=== PATIENT | male | born 1940 | race Caucasian/White ===

== ENCOUNTER 2017-04-24 12:26 | Inpatient (IN) | payer MEDICARE ==
[2017-04-24] MEDS ORDERED: PHARMACY DOSING REQUIRED: VANCOMYCIN IV ONE (14:27)
[2017-04-24] MEDS ORDERED: VANCOCIN 1 GM VIAL*** 1.5 GM in Sodium Chloride 0.9% 500 ML 500 ML IV ONE (14:45)
[2017-04-24] MEDS: Sodium Chloride 0.9% 1000 ML 1,000 ML IV SCH (15:10)
[2017-04-24 15:36] LABS: Mean Cell Volume 71.9 fl (78-100); Mean Corpuscular Hemoglobin 20.9 pg (26-32); Mean Platelet Volume 11.2 fl (6-9.5); Platelet Count 264 K/mm3 (150-450); Red Blood Count 3.77 M/mm3 (4.1-5.6); Red Cell Distribution Width 20.6 % (11.5-14.0); White Blood Count 8.3 K/mm3 (4.0-10.5)
[2017-04-24 15:37] LABS: ALBUMIN 2.6 g/dL (3.4-5.0); ANION GAP 11.5 MEQ/L (5-15); BILIRUBIN,TOTAL 0.6 mg/dL (0.2-1.0); Carbon Dioxide 28.7 mEq/L (21-32); Potassium 3.6 mEq/L (3.5-5.1)
[2017-04-24 16:10] LABS: BAND 2 % (0.0-2.0); Eosinophil 2 % (0.00-3.0); Platelet Estimate NORMAL (NORMAL); Total Cells Counted 100
[2017-04-24 16:11] LABS: ANISOCYTOSIS 2+; Hypochromia 2+; Microcytosis 2+; Poikilocytosis 2+; Polychromasia 1+
[2017-04-24 16:12] LABS: Toxic Granulation 1+
--- NOTE | 2017-04-24 16:34 | XRAY ---
Indication: Pain. Cellulitis. Two-dimensional sonogram and color Doppler imaging of the major venous vessels of the left and right leg was performed. Comparison: None No thrombus seen in the examined deep venous vessels of the left or right leg including greater saphenous veins. Veins demonstrate normal compressibility. Venous waveforms are normal with and without augmentation. Impression: Left and right legs negative for DVT.
[2017-04-24 16:42] LABS: Bacteria FEW /HPF (NEGATIVE); COMPLETE URINE MICROSCOPIC? YES; Collection Type VOID; Epithelial Cells RARE /HPF (FEW); Mucus SLIGHT /HPF (NEGATIVE); WBC 0-2 /HPF (0-5)
[2017-04-24] MEDS: BENADRYL 25 MG CAPSULE PO PRN (21:40)
[2017-04-24] MEDS: COREG 12.5 MG PO SCH (21:40)
[2017-04-24] MEDS: Zocor 10MG PO SCH (21:40)
[2017-04-24] MEDS ORDERED: NON-FORMULARY ITEM (Atorvastatin Calcium [Lipitor] 10 MG) PO SCH (22:00)
[2017-04-25] MEDS: hydroDIURIL 25 MG PO SCH (09:43)
[2017-04-25] MEDS: Januvia 50 MG PO SCH (09:43)
[2017-04-25] MEDS: Protonix 40MG Tablet PO SCH (09:44)
[2017-04-25] MEDS: VANCOCIN 1 GM VIAL*** 1 GM in Sodium Chloride 0.9% 250 ML 250 ML IV SCH (09:44)
[2017-04-25] MEDS: COREG 12.5 MG PO SCH ×2 (09:44→21:57)
[2017-04-25] MEDS: Zestril 10 MG PO SCH (09:44)
[2017-04-25] MEDS ORDERED: LISINOPRIL PO SCH (10:00)
[2017-04-25] MEDS ORDERED: NON-FORMULARY ITEM (Sitagliptin Phosphate [Januvia] 100 MG) PO SCH (10:00)
[2017-04-25] MEDS ORDERED: KEFLEX 500 MG PO SCH (10:00)
[2017-04-25] MEDS ORDERED: [UNRECOGNIZED DRUG - OTHER] PO SCH (10:00)
[2017-04-25] MEDS ORDERED: HYDROCHLOROTHIAZIDE PO SCH (10:00)
[2017-04-25 10:59] LABS: Mean Cell Volume 72.1 fl (78-100); Mean Platelet Volume 10.3 fl (6-9.5); Platelet Count 224 K/mm3 (150-450); Red Blood Count 3.55 M/mm3 (4.1-5.6); Red Cell Distribution Width 20.3 % (11.5-14.0); White Blood Count 6.7 K/mm3 (4.0-10.5)
[2017-04-25 11:03] LABS: Mean Corpuscular Hemoglobin 20.5 pg (26-32)
[2017-04-25 11:57] LABS: ALBUMIN 2.2 g/dL (3.4-5.0); BILIRUBIN,TOTAL 0.5 mg/dL (0.2-1.0); Carbon Dioxide 26.5 mEq/L (21-32); Potassium 3.7 mEq/L (3.5-5.1); Total Protein 5.4 gm/dL (6.4-8.2)
--- NOTE | 2017-04-25 14:36 | PROG NOTE ---
DATE: 04/25/17 Chart reviewed. Events noted. At the time of this evaluation, the patient is alert, awake, and comfortable. States his legs are feeling better. Denies any other new complaints. VITALS: BP 110/53, heart rate 85, respiratory rate 20, temperature 98.1. HEENT: Pallor is present. No icterus noted. NECK: No JVD is present. CVS: S1 and S2 present. RESPIRATORY: Breath sounds bilaterally diminished and clear to auscultation. ABDOMEN: Obese, soft, nontender. NEURO: He is alert and oriented X 3. EXTREMITIES: Reveals edema and erythema of both legs. Mild increase in temperature is noted bilaterally. No calf tenderness is present. LABORATORY DATA: Labs from today show CBC with WBC of 6.7, Hgb 7.3, Hct 25.6, platelets 224. BMP shows BUN of 21, creatinine 1.85, glucose 245. Liver function tests are unremarkable. UA shows few bacteria, rare epithelial cells. Medications were reviewed. ASSESSMENT: 77 y/o male with impression: 1. CELLULITIS OF BILATERAL LOWER EXTREMITIES. 2. DIABETES MELLITUS. 3. HYPERTENSION. 4. HYPERLIPIDEMIA. 5. HISTORY OF PAROXYSMAL ATRIAL FIBRILLATION. 6. RECENT HISTORY OF GASTROINTESTINAL BLEEDING. PLAN: 1. Will add IV Zosyn. 2. Physical therapy regarding wrapping of legs. 3. Continue to monitor CBC and electrolytes. 4. Patient states he recently followed up with gastrointestinal 2 days ago prior to his admission and was advised to hold off on work-up at this time. (Patient has recently undergone EGD/colonoscopy and nuclear studies regarding the gastrointestinal bleed). Patient's clinical condition, work-up results, and plan of management were discussed with him. He seems to be in understanding and agreement.
[2017-04-25] MEDS: Zosyn 2.25 GM 2.25 GM in D5w 100ML Mini Bag 100 ML 100 ML IV SCH (17:16)
[2017-04-25] MEDS: Zocor 10MG PO SCH (21:57)
[2017-04-26] MEDS: Sodium Chloride 0.9% 1000 ML 1,000 ML IV SCH (00:15)
[2017-04-26] MEDS: Zosyn 2.25 GM 2.25 GM in D5w 100ML Mini Bag 100 ML 100 ML IV SCH ×4 (00:15→18:41)
[2017-04-26] MEDS: TYLENOL 325 MG PO PRN ×2 (03:32→22:03)
[2017-04-26 04:38] LABS: Mean Cell Volume 70.6 fl (78-100); Mean Platelet Volume 10.7 fl (6-9.5); Platelet Count 294 K/mm3 (150-450); Red Blood Count 3.78 M/mm3 (4.1-5.6); Red Cell Distribution Width 20.4 % (11.5-14.0); White Blood Count 9.1 K/mm3 (4.0-10.5)
[2017-04-26 04:44] LABS: Mean Corpuscular Hemoglobin 20.8 pg (26-32)
[2017-04-26 06:04] LABS: ANION GAP 13.8 MEQ/L (5-15); Carbon Dioxide 24.6 mEq/L (21-32); Potassium 3.8 mEq/L (3.5-5.1)
[2017-04-26] MEDS: Protonix 40MG Tablet PO SCH (08:00)
[2017-04-26 09:40] LABS: BAND 5 % (0.0-2.0); Eosinophil 1 % (0.00-3.0); Total Cells Counted 100
[2017-04-26 09:41] LABS: ANISOCYTOSIS 1+; Hypochromia 2+; Microcytosis 1+; Platelet Estimate NORMAL (NORMAL); Polychromasia 1+
[2017-04-26] MEDS: Januvia 50 MG PO SCH (10:00)
[2017-04-26] MEDS: Zestril 10 MG PO SCH (10:00)
[2017-04-26] MEDS: VANCOCIN 1 GM VIAL*** 1 GM in Sodium Chloride 0.9% 250 ML 250 ML IV SCH (10:00)
[2017-04-26] MEDS: hydroDIURIL 25 MG PO SCH (10:00)
[2017-04-26] MEDS: COREG 12.5 MG PO SCH ×2 (10:00→22:03)
[2017-04-26] MEDS ORDERED: Lasix 20 MG/2 ML IV PRN (11:47)
[2017-04-26] MEDS: NovoLOG Insulin SQ SCH ×2 (12:12→16:30)
[2017-04-26] MEDS: Lasix 20 MG/2 ML IV SCH (12:12)
[2017-04-26] MEDS: Lantus Insulin SQ SCH (12:12)
[2017-04-26] MEDS: Zocor 10MG PO SCH (22:03)
[2017-04-27] MEDS: Zosyn 2.25 GM 2.25 GM in D5w 100ML Mini Bag 100 ML 100 ML IV SCH ×5 (00:16→23:53)
[2017-04-27] MEDS: BENADRYL 25 MG CAPSULE PO PRN (03:30)
[2017-04-27] MEDS: Protonix 40MG Tablet PO SCH (07:55)
[2017-04-27] MEDS: NovoLOG Insulin SQ SCH ×3 (07:55→16:36)
[2017-04-27] MEDS ORDERED: TROUGH DRUG LEVELS IJ ONE (09:30)
[2017-04-27] MEDS: Lantus Insulin SQ SCH (09:31)
[2017-04-27] MEDS: COREG 12.5 MG PO SCH ×2 (09:31→21:12)
[2017-04-27] MEDS: Januvia 50 MG PO SCH (09:31)
[2017-04-27] MEDS: Zestril 10 MG PO SCH (09:31)
[2017-04-27] MEDS: Lasix 20 MG/2 ML IV SCH (09:31)
[2017-04-27] MEDS: hydroDIURIL 25 MG PO SCH (09:31)
[2017-04-27] MEDS: VANCOCIN 1 GM VIAL*** 1 GM in Sodium Chloride 0.9% 250 ML 250 ML IV SCH (10:13)
[2017-04-27] MEDS: Sodium Chloride 0.9% 1000 ML 1,000 ML IV SCH (14:30)
[2017-04-27] MEDS: TYLENOL 325 MG PO PRN (17:27)
[2017-04-27] MEDS: Zocor 10MG PO SCH (21:12)
[2017-04-28] MEDS: Zosyn 2.25 GM 2.25 GM in D5w 100ML Mini Bag 100 ML 100 ML IV SCH ×4 (05:50→18:30)
[2017-04-28] MEDS: Protonix 40MG Tablet PO SCH (07:30)
[2017-04-28] MEDS: NovoLOG Insulin SQ SCH ×3 (07:30→16:41)
[2017-04-28] MEDS: Januvia 50 MG PO SCH (09:53)
[2017-04-28] MEDS: Zestril 10 MG PO SCH (09:53)
[2017-04-28] MEDS: hydroDIURIL 25 MG PO SCH (09:53)
[2017-04-28] MEDS: Lantus Insulin SQ SCH (09:54)
[2017-04-28] MEDS: VANCOCIN 1 GM VIAL*** 1 GM in Sodium Chloride 0.9% 250 ML 250 ML IV SCH (09:54)
[2017-04-28] MEDS: COREG 12.5 MG PO SCH ×2 (09:54→22:26)
[2017-04-28] MEDS: Lasix 20 MG/2 ML IV SCH (09:54)
--- NOTE | 2017-04-28 14:10 | PCM.NOTE ---
Date and Time: 04/28/17 1409 Subjective Assessment: doing better but still swelling are all way up to mid abdomen - Review of Systems Constitutional: No Fever, No Chills Eyes: No Symptoms Ears, Nose, & Throat: No Symptoms Respiratory: No Cough, No Short Of Breath Cardiac: No Chest Pain, No Edema, No Syncope Abdominal/Gastrointestinal: No Abdominal Pain, No Nausea, No Vomiting, No Diarrhea Genitourinary Symptoms: No Dysuria Musculoskeletal: No Back Pain, No Neck Pain Skin: No Rash Neurological: No Dizziness, No Focal Weakness, No Sensory Changes Psychological: No Symptoms Endocrine: No Symptoms Hematologic/Lymphatic: No Symptoms Immunological/Allergic: No Symptoms Objective Exam General Appearance: no apparent distress, alert Neurologic Exam: alert, oriented x 3, cooperative, normal mood/affect, nml cerebellar function, sensation nml, No motor deficits Skin Exam: normal color, warm, dry Eye Exam: PERRL, EOMI, eyes nml inspection Ears, Nose, Throat Exam: normal ENT inspection, pharynx normal, moist mucous membranes Neck Exam: normal inspection, non-tender, supple, full range of motion Respiratory Exam: normal breath sounds, lungs clear, No respiratory distress Cardiovascular Exam: regular rate/rhythm, normal heart sounds Gastrointestinal/Abdomen Exam: soft, No tenderness, No mass Extremity Exam: normal inspection, normal range of motion Back Exam: normal inspection, normal range of motion, No CVA tenderness, No vertebral tenderness Male Genitalia Exam: deferred Rectal Exam: deferred OBJECTIVE DATA Vital Signs: Vital Signs - 24 hr Temp Pulse Resp BP Pulse Ox 04/28/17 11:35 98.3 F 79 18 124/79 96 04/28/17 07:16 98.3 F 87 18 131/74 96 04/28/17 04:15 99.1 F 68 20 126/63 97 04/28/17 00:12 99.1 F 68 22 126/66 95 04/27/17 20:00 100.0 F 71 22 104/56 95 04/27/17 16:00 100 F 94 H 20 113/57 99 Pain Assessment - Last Documented Pain Intensity 0 [facility] Intake and Output: Intake & Output 04/26/17 04/27/17 04/28/17 04/29/17 11:59 11:59 11:59 11:59 Intake Total 2915 0871 3516 480 Output Total 2300 900 1400 Balance 615 8691 2917 480 Weight 103.102 kg Lab Results: Accuchecks Date 04/28/17 Date 04/28/17 Date 04/27/17 Date 04/27/17 Time 11:30 Time 07:30 Time 16:30 Accucheck Value: 255 Accucheck Value: 173 Accucheck Value: 183 Accucheck Value: 215 Multi-Disciplinary Progress Notes: Multi-Disciplinary Progress Notes 04/28/17 11:58 Physical Therapy Note by Mercedez Fonseca PATIENT AND STAFF REPORT PATIENT HAS INCREASED UPPER LEG REDNESS AND SWELLING; MINIMAL SEROUS SEEPING. IN LIGHT OF THAT APPLIED EXTRA LONG JONEL WRAP COMPRESSION TO LEGS TO INCLUDE THIGHS. PATIENT SKIN IS INTACT...CONTINUE TOPICAL SKIN TXS TO HYDRATE AND PROTECT SKIN INTEGRITY. PATIENT REPORTS NO PAIN IN LEGS, BUT REDNESS AND WARMTH ARE APPARENT BOTH LEGS. WILL FOLLOW. Initialized on 04/28/17 11:58 - END OF NOTE Assessment/Plan (1) Bilateral lower leg cellulitis Current Visit: Yes Status: Acute Code(s): L03.116 - CELLULITIS OF LEFT LOWER LIMB; L03.115 - CELLULITIS OF RIGHT LOWER LIMB (2) Edema of both legs Current Visit: Yes Status: Acute Code(s): R60.0 - LOCALIZED EDEMA
[2017-04-28] MEDS: Lasix 40 MG/4 ML IV SCH (16:41)
[2017-04-28] MEDS: Sodium Chloride 0.9% 1000 ML 1,000 ML IV SCH ×2 (18:49→18:50)
[2017-04-28] MEDS: Zocor 10MG PO SCH (22:26)
[2017-04-29] MEDS: Zosyn 2.25 GM 2.25 GM in D5w 100ML Mini Bag 100 ML 100 ML IV SCH ×3 (00:15→12:28)
[2017-04-29] MEDS: Protonix 40MG Tablet PO SCH (08:19)
[2017-04-29] MEDS: NovoLOG Insulin SQ SCH ×2 (08:19→12:28)
[2017-04-29 08:21] LABS: Mean Cell Volume 71.8 fl (78-100); Mean Corpuscular Hemoglobin 21.5 pg (26-32); Mean Platelet Volume 9.8 fl (6-9.5); Platelet Count 321 K/mm3 (150-450); Red Blood Count 3.72 M/mm3 (4.1-5.6); Red Cell Distribution Width 21.7 % (11.5-14.0); White Blood Count 10.1 K/mm3 (4.0-10.5)
[2017-04-29 08:58] LABS: ALBUMIN 2.1 g/dL (3.4-5.0); BILIRUBIN,TOTAL 0.4 mg/dL (0.2-1.0); Carbon Dioxide 27.9 mEq/L (21-32); Potassium 3.1 mEq/L (3.5-5.1); Total Protein 5.9 gm/dL (6.4-8.2)
[2017-04-29] MEDS: hydroDIURIL 25 MG PO SCH (09:47)
[2017-04-29] MEDS: Januvia 50 MG PO SCH (09:47)
[2017-04-29] MEDS: Zestril 10 MG PO SCH (09:51)
[2017-04-29] MEDS: COREG 12.5 MG PO SCH (09:51)
[2017-04-29] MEDS: Lasix 40 MG/4 ML IV SCH (09:51)
[2017-04-29] MEDS: Lantus Insulin SQ SCH (09:51)
[2017-04-29] MEDS ORDERED: Klor Con 10 MEQ PO SCH (10:00)
--- NOTE | 2017-04-29 12:46 | PCM.NOTE ---
Date and Time: 04/29/17 1245 Subjective Assessment: doing little better - Review of Systems Constitutional: No Fever, No Chills Eyes: No Symptoms Ears, Nose, & Throat: No Symptoms Respiratory: No Cough, No Short Of Breath Cardiac: No Chest Pain, No Edema, No Syncope Abdominal/Gastrointestinal: No Abdominal Pain, No Nausea, No Vomiting, No Diarrhea Genitourinary Symptoms: No Dysuria Musculoskeletal: No Back Pain, No Neck Pain Skin: No Rash Neurological: No Dizziness, No Focal Weakness, No Sensory Changes Psychological: No Symptoms Endocrine: No Symptoms Hematologic/Lymphatic: No Symptoms Immunological/Allergic: No Symptoms Objective Exam General Appearance: no apparent distress, alert Neurologic Exam: alert, oriented x 3, cooperative, normal mood/affect, nml cerebellar function, sensation nml, No motor deficits Skin Exam: normal color, warm, dry Eye Exam: PERRL, EOMI, eyes nml inspection Ears, Nose, Throat Exam: normal ENT inspection, pharynx normal, moist mucous membranes Neck Exam: normal inspection, non-tender, supple, full range of motion Respiratory Exam: normal breath sounds, lungs clear, No respiratory distress Cardiovascular Exam: regular rate/rhythm, normal heart sounds Gastrointestinal/Abdomen Exam: soft, No tenderness, No mass Extremity Exam: normal inspection, normal range of motion Back Exam: normal inspection, normal range of motion, No CVA tenderness, No vertebral tenderness Male Genitalia Exam: deferred Rectal Exam: deferred OBJECTIVE DATA Vital Signs: Vital Signs - 24 hr Temp Pulse Resp BP Pulse Ox 04/29/17 07:59 98.2 F 72 20 129/63 94 L 04/29/17 04:35 98.2 F 85 20 125/59 97 04/29/17 00:19 98.7 F 74 20 128/69 95 04/28/17 20:16 99.7 F 86 18 117/61 92 L 04/28/17 16:00 98.3 F 96 H 18 129/68 96 Pain Assessment - Last Documented Pain Intensity 0 Pain Scale Used 0-10 Pain Scale Intake and Output: Intake & Output 04/27/17 04/28/17 04/29/17 04/30/17 11:59 11:59 11:59 11:59 Intake Total 8421 4516 4224 Output Total 900 1400 1700 Balance 1691 2116 2524 Weight 103.102 kg Lab Results: Accuchecks Date 04/29/17 Date 04/28/17 Date 04/28/17 Time 07:30 Time 16:30 Accucheck Value: 189 Accucheck Value: 148 Accucheck Value: 191 Lab Results-Last 24 Hours 04/29/17 04/29/17 Range/Units 08:18 08:18 WBC 10.1 (4.0-10.5) K/mm3 RBC 3.72 L (4.1-5.6) M/mm3 Hgb 8.0 L (12.5-18.0) gm/dl Hct 26.7 L (42-50) % MCV 71.8 L (78-100) fl MCH 21.5 L (26-32) pg MCHC 30.0 L (32-36) g/dl RDW 21.7 H (11.5-14.0) % Plt Count 321 (150-450) K/mm3 MPV 9.8 H (6-9.5) fl Sodium 144 (136-145) mEq/L Potassium 3.1 L (3.5-5.1) mEq/L Chloride 107 (98-107) mEq/L Carbon Dioxide 27.9 (21-32) mEq/L Anion Gap 12.0 (5-15) MEQ/L BUN 27 H (9-20) mg/dL Creatinine 1.81 H (0.55-1.30) mg/dl Estimated GFR 39 ML/MIN Glucose 168 H (70-110) MG/DL Calcium 7.8 L (8.5-10.1) mg/dL Total Bilirubin 0.40 (0.2-1.0) mg/dL AST 14 L (15-37) U/L ALT 22 (12-78) U/L Alkaline Phosphatase 44 L (46-116) U/L Serum Total Protein 5.9 L (6.4-8.2) gm/dL Albumin 2.1 L (3.4-5.0) g/dL Slides for Path Review YES Assessment/Plan (1) Bilateral lower leg cellulitis Current Visit: Yes Status: Acute Assessment & Plan: improving, plan to d/c home Code(s): L03.116 - CELLULITIS OF LEFT LOWER LIMB; L03.115 - CELLULITIS OF RIGHT LOWER LIMB (2) Edema of both legs Current Visit: Yes Status: Acute Code(s): R60.0 - LOCALIZED EDEMA
--- NOTE | 2017-04-29 12:59 | PCM.DS ---
Discharge Summary Date of Admission: 04/24/17 12:42 Admitting Physician: BRIDGET LAU Primary Care Provider: BRIDGET LAU Allergies Allergies No Known Drug Allergies Allergy (Verified 04/24/17 13:09) Hospital Summary - Vitals & Intake/Output Vital Signs: Vital Signs Temperature 98.2 F 04/29/17 07:59 Pulse Rate 72 04/29/17 07:59 Respiratory Rate 20 04/29/17 07:59 Blood Pressure 129/63 04/29/17 07:59 O2 Sat by Pulse Oximetry 94 L 04/29/17 07:59 Intake & Output: Intake & Output 04/27/17 04/28/17 04/29/17 04/30/17 11:59 11:59 11:59 11:59 Intake Total 2591 3516 4224 Output Total 900 1400 1700 Balance 1691 8696 7984 Weight 103.102 kg - Lab Result Diagrams: 04/29/17 08:18 04/29/17 08:18 Lab Results-Last 24 Hrs: Accuchecks Date 04/29/17 Date 04/28/17 Date 04/28/17 Time 07:30 Time 16:30 Accucheck Value: 189 Accucheck Value: 148 Accucheck Value: 191 Lab Results-Last 24 Hours 04/29/17 04/29/17 Range/Units 08:18 08:18 WBC 10.1 (4.0-10.5) K/mm3 RBC 3.72 L (4.1-5.6) M/mm3 Hgb 8.0 L (12.5-18.0) gm/dl Hct 26.7 L (42-50) % MCV 71.8 L (78-100) fl MCH 21.5 L (26-32) pg MCHC 30.0 L (32-36) g/dl RDW 21.7 H (11.5-14.0) % Plt Count 321 (150-450) K/mm3 MPV 9.8 H (6-9.5) fl Sodium 144 (136-145) mEq/L Potassium 3.1 L (3.5-5.1) mEq/L Chloride 107 (98-107) mEq/L Carbon Dioxide 27.9 (21-32) mEq/L Anion Gap 12.0 (5-15) MEQ/L BUN 27 H (9-20) mg/dL Creatinine 1.81 H (0.55-1.30) mg/dl Estimated GFR 39 ML/MIN Glucose 168 H (70-110) MG/DL Calcium 7.8 L (8.5-10.1) mg/dL Total Bilirubin 0.40 (0.2-1.0) mg/dL AST 14 L (15-37) U/L ALT 22 (12-78) U/L Alkaline Phosphatase 44 L (46-116) U/L Serum Total Protein 5.9 L (6.4-8.2) gm/dL Albumin 2.1 L (3.4-5.0) g/dL Slides for Path Review YES Micro Results-Entire Visit: Microbiology 04/24/17 14:50 - Final Blood Not Reportable Blood Culture - Final NO GROWTH 04/24/17 15:00 Gram Stain - Final Leg - Left Lower Wound Culture - Final ORGANISMS ISOLATED ARE CONSISTENT WITH NORMAL SKIN HARPER LIGHT GROWTH, NO PREDOMINANT ORGANISM 04/26/17 04:28 Blood Culture - Preliminary Blood NO GROWTH TO DATE 04/26/17 04:15 Blood Culture - Preliminary Blood NO GROWTH TO DATE Accuchecks Date 04/29/17 Date 04/28/17 Date 04/28/17 Time 07:30 Time 16:30 Accucheck Value: 189 Accucheck Value: 148 Accucheck Value: 191 - Procedures and Test Procedures and Tests throughout Hospitalization: Therapy Orders & Screens 04/24/17 13:53 PT Screen per Nursing Assess ONCE Comment: Protocol Order Physician Instructions: Greater than 3 points order PT Admission Screenin Reason For Exam: Triggered on Admission Diagnosis: cellulitis BLE Open Wound/Cellutlitis/Pressure Ulcers: Yes Acute Fx/ORIF/Change in wt bearing status: No Severe MUSCULOSKELETAL pain: No ADL Dysfunction: No Acute CVA w/Hemiparesis/Hemiplegia: No Decreased Functional Mobility/Strength: No Sprain/Strain: No Acute Post-op Mobility Dysfunction: No Total Points: 5 04/24/17 14:28 PT Eval & Treat ( Order) ROUTINE Evaluate: Yes Treat: Yes Reason for Eval:: CELLULITIS BLE Diagnosis: CELLULITIS BLE 04/25/17 13:59 PT Eval & Treat ( Order) ROUTINE Evaluate: Yes Treat: Yes Reason for Eval:: wrapping of both LE Diagnosis: CELLULITIS BLE Discharge Exam General Appearance: no apparent distress, alert Neurologic Exam: alert, oriented x 3, cooperative, normal mood/affect, nml cerebellar function, sensation nml, No motor deficits Skin Exam: normal color, warm, dry Eye Exam: PERRL, EOMI, eyes nml inspection Ears, Nose, Throat Exam: normal ENT inspection, pharynx normal, moist mucous membranes Neck Exam: normal inspection, non-tender, supple, full range of motion Respiratory Exam: normal breath sounds, lungs clear, No respiratory distress Cardiovascular Exam: regular rate/rhythm, normal heart sounds Gastrointestinal/Abdomen Exam: soft, No tenderness, No mass Extremity Exam: normal inspection, normal range of motion Back Exam: normal inspection, normal range of motion, No CVA tenderness, No vertebral tenderness Male Genitalia Exam: deferred Rectal Exam: deferred Final Diagnosis/Problem List - Final Discharge Diagnosis/Problem (1) Bilateral lower leg cellulitis Current Visit: Yes Status: Acute Priority: High Assessment & Plan: improved (2) Edema of both legs Current Visit: Yes Status: Acute - Discharge Discharge Date: 04/29/17 Disposition: Home, Self-Care Condition: Stable Prescriptions: New Furosemide 40 mg [Lasix 40 MG] 40 mg PO BID #60 tablet Potassium Bicarbonate/Cit AC [Potassium 25 Meq Tablet Eff] 25 meq PO BID #60 tablet.eff Continue Lisinopril/Hydrochlorothiazide [Lisinopril-Hctz 20-12.5 mg Tab] 0.5 mg PO DAILY Carvedilol 12.5 mg [Coreg 12.5 mg] 12.5 mg PO BID PANTOPRAZOLE 40 mg Tablet [Protonix 40MG Tablet] 40 mg PO BREAKFAST Sitagliptin Phosphate [Januvia] 100 mg PO DAILY Atorvastatin Calcium [Lipitor] 10 mg PO HS Cephalexin Mh 500 mg [Keflex 500 mg] 500 mg PO DAILY Follow up with: BRIDGET LAU MD [Primary Care Provider] - 1 Week
[2017-04-29 13:25] VITALS: BP 125/87; PULSE 77; O2SAT 96
== END 2017-04-29 15:18 | disposition home or self-care (01) | DRG 603 ==
LOC: OBSVTOIN 12:42 → MED SURG 12:42
PROVIDERS: ADMIT General Practice; ATTEND General Practice
DX: L03.116 Cellulitis of left lower limb (principal); K92.2 Gastrointestinal hemorrhage, unspecified; L03.115 Cellulitis of right lower limb; J44.9 Chronic obstructive pulmonary disease, unspecified; I12.9 Hypertensive chronic kidney disease with stage 1 through stage 4 chronic kidney disease, or unspecified chronic kidney disease; N18.9 Chronic kidney disease, unspecified; I71.4 Abdominal aortic aneurysm, without rupture; I25.10 Atherosclerotic heart disease of native coronary artery without angina pectoris; B02.9 Zoster without complications; I48.0 Paroxysmal atrial fibrillation; I87.8 Other specified disorders of veins; E78.5 Hyperlipidemia, unspecified; D50.9 Iron deficiency anemia, unspecified; R60.0 Localized edema; E11.65 Type 2 diabetes mellitus with hyperglycemia; Z79.4 Long term (current) use of insulin; Z79.01 Long term (current) use of anticoagulants; Z79.899 Other long term (current) drug therapy
CPT/HCPCS: 36415; 36430; 80048; 80053; 80202; 81000; 82962; 83036; 85014; 85018; 85025; 85027; 86850; 86900; 86901; 86922; 87040; 87070; 93970; J1940; J2543; J3370; P9016; A9270-GY

== ENCOUNTER 2019-01-02 15:52 | Observation (INO) | payer MEDICARE, SELFPAY ==
--- NOTE | 2019-01-02 16:31 | ERPHSYRPT ---
- History of Present Illness Time Seen by Provider: 01/02/19 16:27 Source: patient, family Exam Limitations: no limitations Patient Subjective Stated Complaint: pt states "i'm always weak and tired". spouse states it has been worsening, "he can't even get up and go to the bathroom by himself anymore". Spouse reports increased need for o2 at home, decreased oral intake Triage Nursing Assessment: pink/warm/dry, resp easy, wheeled to room and pt transferred from wheelchair to bed per self without difficulty. a&ox4. [place]. Physician History: The patient is a 78-year-old male with family complaining of increasing weakness for the last 2-3 days. He wears oxygen continuously at home. When he stands up to walk to the bathroom, he becomes very short of breath and weak. He has a known history of anemia and has required frequent transfusions and iron infusions as well. He feels as if he is anemic again. He denies chest pain. He denies nausea or vomiting. He denies diarrhea. His family spoke with his local doctor today to inform him that he was becoming weaker. He saw his local doctor yesterday. His past medical history is significant for to minor recent strokes, he anemia, HTN, CHF, high cholesterol. Timing/Duration: day(s) (3), gradual onset, worse Severity: moderate Modifying Factors: Improves With: nothing Associated Symptoms: weakness, No abdominal pain, No chest pain, No loss of appetite Allergies/Adverse Reactions: No Known Drug Allergies Allergy (Verified 10/28/18 13:16) Home Medications: Carvedilol 12.5 mg [Coreg 12.5 mg] 12.5 mg PO BID 05/01/15 [History] Lisinopril/Hydrochlorothiazide [Lisinopril-Hctz 20-12.5 mg Tab] 0.5 mg PO DAILY 05/01/15 [History] Atorvastatin Calcium [Lipitor] 10 mg PO HS 04/24/17 [History] PANTOPRAZOLE 40 mg Tablet [Protonix 40MG Tablet] 40 mg PO BREAKFAST [History] Aspirin 81 mg PO DAILY 05/21/18 [History] Furosemide 20 mg [Lasix 20 mg] 20 mg PO DAILY 10/29/18 [History] Hx Tetanus, Diphtheria Vaccination/Date Given: No Hx Influenza Vaccination/Date Given: No Hx Pneumococcal Vaccination/Date Given: No Immunizations Up to Date: No - Review of Systems Constitutional: Weakness, No Fever, No Chills Eyes: No Symptoms Ears, Nose, & Throat: No Symptoms Respiratory: No Cough, No Dyspnea Cardiac: No Chest Pain, No Edema, No Syncope Abdominal/Gastrointestinal: No Abdominal Pain, No Nausea, No Vomiting, No Diarrhea Genitourinary Symptoms: No Dysuria Musculoskeletal: No Back Pain, No Neck Pain Skin: No Rash Neurological: No Dizziness, No Focal Weakness, No Sensory Changes Psychological: No Symptoms Endocrine: No Symptoms Hematologic/Lymphatic: No Symptoms Immunological/Allergic: No Symptoms All Other Systems: Reviewed and Negative - Past Medical History Pertinent Past Medical History: Yes Neurological History: Stroke ENT History: Cataracts, Other Cardiac History: High Cholesterol, Hypertension, Peripheral Vascular Disease Respiratory History: COPD Endocrine Medical History: Diabetes Type II Musculoskeletal History: No Pertinent History GI Medical History: Hemorrhoids, Other History: Renal Disease Psycho-Social History: No Pertinent History Male Reproductive Disorders: Prostate Problems Other Medical History: cellulitis. kadeem cataracts. no polyps , but a cluster of veins, enlarge prostate.shingles. drmatitis. Myositis. - Past Surgical History Past Surgical History: Yes Neuro Surgical History: No Pertinent History Cardiac: Other Respiratory: No Pertinent History Gastrointestinal: No Pertinent History Genitourinary: No Pertinent History Musculoskeletal: Orthopedic Surgery Male Surgical History: No Pertinent History Other Surgical History: kadeem knee surgery. colonoscopy recent. 3 aortic stents - Social History Smoking Status: Former smoker Exposure to second hand smoke: No Drug Use: none Patient Lives Alone: No - Nursing Vital Signs Nursing Vital Signs: Initial Vital Signs Temperature 98.1 F 01/02/19 16:11 Pulse Rate 63 01/02/19 16:11 Respiratory Rate 24 01/02/19 16:11 Blood Pressure 161/83 01/02/19 16:11 O2 Sat by Pulse Oximetry 100 01/02/19 16:11 Pain Scale Pain Intensity 0 - Physical Exam General Appearance: mild distress Eye Exam: PERRL/EOMI, eyes nml inspection Ears, Nose, Throat Exam: normal ENT inspection Neck Exam: normal inspection, non-tender, supple, full range of motion Respiratory Exam: normal breath sounds, lungs clear, No respiratory distress Cardiovascular Exam: regular rate/rhythm, normal heart sounds, normal peripheral pulses Gastrointestinal/Abdomen Exam: soft, normal bowel sounds, No tenderness, No mass Rectal Exam: not done Back Exam: normal inspection, normal range of motion, No CVA tenderness, No vertebral tenderness Extremity Exam: normal inspection, normal range of motion, pelvis stable Neurologic Exam: alert, oriented x 3, cooperative, normal mood/affect, nml cerebellar function, nml station & gait, sensation nml, No motor deficits Skin Exam: pale Lymphatic Exam: No adenopathy SpO2 Interpretation: O2 applied SpO2: 100 O2 Delivery: Nasal Cannula (2L) - Course EKG Interpreted by Me: RATE, Sinus Rhythm, NORMAL AXIS, NORMAL INTERVALS, NORMAL QRS, NORMAL ST-T, Other (comp EKG from 03/07/16.) Ordered Tests: Active Orders 24 hr Category Date Time Status Clean Catch Urine Specimen STAT Care 01/02/19 16:33 Active EKG-ER Only STAT Care 01/02/19 16:33 Active IV Insertion STAT Care 01/02/19 16:33 Active CBC W DIFF Stat Lab 01/02/19 16:30 Completed CMP Stat Lab 01/02/19 16:30 Completed LIPASE Stat Lab 01/02/19 16:30 Completed Lactic Acid Stat Lab 01/02/19 16:33 Results NT PRO BNP Stat Lab 01/02/19 16:30 Completed Potassium (Lab Test) [Potassium] Stat Lab 01/02/19 17:32 Ordered TROPONIN Q3H Lab 01/02/19 16:30 Completed TROPONIN Q3H Lab 01/02/19 19:45 Ordered TROPONIN Q3H Lab 01/02/19 22:45 Ordered TROPONIN Q3H Lab 01/03/19 01:45 Ordered TROPONIN Q3H Lab 01/03/19 04:45 Ordered UA W/RFX UR CULTURE Stat Lab 01/02/19 16:56 Completed Lab/Rad Data: Laboratory Result Diagrams 01/02/19 16:30 01/02/19 16:30 Laboratory Results 01/02/19 01/02/19 01/02/19 Range/Units 16:56 16:33 16:30 WBC (4.0-10.5) K/mm3 RBC (4.1-5.6) M/mm3 Hgb (12.5-18.0) gm/dl Hct (42-50) % MCV (78-100) fl MCH (26-32) pg MCHC (32-36) g/dl RDW (11.5-14.0) % Plt Count (150-450) K/mm3 MPV (6-9.5) fl Gran % (36.0-66.0) % Eos # (Auto) (0-0.5) Absolute Lymphs (auto) (1.0-4.6) Absolute Monos (auto) (0.0-1.3) Lymphocytes % (24.0-44.0) % Monocytes % (0.0-12.0) % Eosinophils % (0.00-5.0) % Basophils % (0.0-0.4) % Absolute Granulocytes (1.4-6.9) Basophils # (0-0.4) Sodium (137-145) mmol/L Potassium (3.5-5.1) mmol/L Chloride (98-107) mmol/L Carbon Dioxide (22-30) mmol/L Anion Gap (5-15) MEQ/L BUN (9-20) mg/dL Creatinine (0.66-1.25) mg/dL Estimated GFR ML/MIN Glucose (74-106) mg/dL Lactic Acid 2.5 H (0.4-2.0) Calcium (8.4-10.2) mg/dL Total Bilirubin (0.2-1.3) mg/dL AST (17-59) U/L ALT (0-50) U/L Alkaline Phosphatase (38-126) U/L Troponin I < 0.012 (0.000-0.034) ng/mL NT-Pro-B Natriuret Pep (0-1800) pg/mL Serum Total Protein (6.3-8.2) g/dL Albumin (3.5-5.0) g/dL Lipase (23-300) U/L Urine Color YELLOW (YELLOW) Urine Appearance CLEAR (CLEAR) Urine pH 5.0 (5-6) Ur Specific Randolph 1.015 (1.005-1.025) Urine Protein 30 (Negative) Urine Ketones NEGATIVE (NEGATIVE) Urine Blood NEGATIVE (0-5) Crescencio/ul Urine Nitrite NEGATIVE (NEGATIVE) Urine Bilirubin NEGATIVE (NEGATIVE) Urine Urobilinogen NEGATIVE (0-1) mg/dL Ur Leukocyte Esterase NEGATIVE (NEGATIVE) Urine WBC (Auto) 0-2 (0-5) /HPF Urine RBC (Auto) NONE (0-2) /HPF U Hyaline Cast (Auto) 0-2 (0-2) /LPF U Epithel Cells (Auto) NONE (FEW) /HPF Urine Bacteria (Auto) NONE (NEGATIVE) /HPF Urine Mucus (Auto) SLIGHT (NEGATIVE) /HPF Urine Culture Reflexed NO (NO) Urine Glucose NEGATIVE (NEGATIVE) mg/dL 01/02/19 01/02/19 01/02/19 Range/Units 16:30 16:30 16:30 WBC 4.9 (4.0-10.5) K/mm3 RBC 2.88 L (4.1-5.6) M/mm3 Hgb 6.1 L* (12.5-18.0) gm/dl Hct 21.8 L (42-50) % MCV 75.7 L (78-100) fl MCH 21.1 L (26-32) pg MCHC 28.0 L (32-36) g/dl RDW 18.7 H (11.5-14.0) % Plt Count 202 (150-450) K/mm3 MPV 12.0 H (6-9.5) fl Gran % 72.2 H (36.0-66.0) % Eos # (Auto) 0.07 (0-0.5) Absolute Lymphs (auto) 0.74 L (1.0-4.6) Absolute Monos (auto) 0.53 (0.0-1.3) Lymphocytes % 15.3 L (24.0-44.0) % Monocytes % 10.9 (0.0-12.0) % Eosinophils % 1.4 (0.00-5.0) % Basophils % 0.2 (0.0-0.4) % Absolute Granulocytes 3.50 (1.4-6.9) Basophils # 0.01 (0-0.4) Sodium 144 (137-145) mmol/L Potassium 5.5 H (3.5-5.1) mmol/L Chloride 108 H (98-107) mmol/L Carbon Dioxide 24 (22-30) mmol/L Anion Gap 17.4 H (5-15) MEQ/L BUN 36 H (9-20) mg/dL Creatinine 2.04 H (0.66-1.25) mg/dL Estimated GFR 33.7 ML/MIN Glucose 87 (74-106) mg/dL Lactic Acid (0.4-2.0) Calcium 9.4 (8.4-10.2) mg/dL Total Bilirubin 0.50 (0.2-1.3) mg/dL AST 10 L (17-59) U/L ALT 12 (0-50) U/L Alkaline Phosphatase 55 (38-126) U/L Troponin I (0.000-0.034) ng/mL NT-Pro-B Natriuret Pep 2820 H (0-1800) pg/mL Serum Total Protein 7.0 (6.3-8.2) g/dL Albumin 4.1 (3.5-5.0) g/dL Lipase 225 (23-300) U/L Urine Color (YELLOW) Urine Appearance (CLEAR) Urine pH (5-6) Ur Specific [place] (1.005-1.025) Urine Protein (Negative) Urine Ketones (NEGATIVE) Urine Blood (0-5) Crescencio/ul Urine Nitrite (NEGATIVE) Urine Bilirubin (NEGATIVE) Urine Urobilinogen (0-1) mg/dL Ur Leukocyte Esterase (NEGATIVE) Urine WBC (Auto) (0-5) /HPF Urine RBC (Auto) (0-2) /HPF U Hyaline Cast (Auto) (0-2) /LPF U Epithel Cells (Auto) (FEW) /HPF Urine Bacteria (Auto) (NEGATIVE) /HPF Urine Mucus (Auto) (NEGATIVE) /HPF Urine Culture Reflexed (NO) Urine Glucose (NEGATIVE) mg/dL - Progress Progress: unchanged Discussed with : Alix Counseled pt/family regarding: lab results, diagnosis - Departure Time of Disposition: 17:56 (L) Departure Disposition: In-patient Admission (per Dr Lau) Clinical Impression: Anemia, Renal insufficiency, Hyperkalemia Condition: Stable Critical Care Time: No Referrals: BRIDGET LAU MD [Primary Care Provider] -
[2019-01-02 16:43] LABS: Lactic Acid 2.5 (0.4-2.0)
[2019-01-02 16:53] LABS: BASOPHIL % 0.2 % (0.0-0.4); Basophil (Absolute #) 0.01 (0-0.4); Eosinophil % 1.4 % (0.00-5.0); Eosinophil (Absolute #) 0.07 (0-0.5); Granulocytes % 72.2 % (36.0-66.0); Hematocrit 21.8 % (42-50); Lymphocyte (Absolute #) 0.74 (1.0-4.6); Lymphocytes % 15.3 % (24.0-44.0); Mean Cell Volume 75.7 fl (78-100); Monocyte (Absolute #) 0.53 (0.0-1.3); Monocytes % 10.9 % (0.0-12.0); Platelet Count 202 K/mm3 (150-450); Red Blood Count 2.88 M/mm3 (4.1-5.6); Red Cell Distribution Width 18.7 % (11.5-14.0); White Blood Count 4.9 K/mm3 (4.0-10.5)
[2019-01-02 17:06] LABS: ALBUMIN 4.1 g/dL (3.5-5.0); ANION GAP 17.4 MEQ/L (5-15); BILIRUBIN,TOTAL 0.5 mg/dL (0.2-1.3); Calcium 9.4 mg/dL (8.4-10.2); Creatinine 1 2.04 mg/dL (0.66-1.25); Potassium 5.5 mmol/L (3.5-5.1)
[2019-01-02 17:12] LABS: Appearance CLEAR (CLEAR); Bilirubin NEGATIVE (NEGATIVE); Blood NEGATIVE Ery/ul (0-5); Glucose NEGATIVE (NEGATIVE); Hyaline Casts 0-2 /LPF (0-2); Ketones NEGATIVE (NEGATIVE); Leukocyte Esterase NEGATIVE (NEGATIVE); Mucus SLIGHT /HPF (NEGATIVE); Nitrite NEGATIVE (NEGATIVE); Protein,Urine Dip 30 (Negative); Specific Gravity 1.015 (1.005-1.025); Urobilinogen NEGATIVE mg/dL (0-1); WBC 0-2 /HPF (0-5)
[2019-01-02 17:20] LABS: Mean Corpuscular Hemoglobin 21.1 pg (26-32)
[2019-01-02 17:21] LABS: Hemoglobin 6.1 gm/dl (12.5-18.0)
[2019-01-02] MEDS ORDERED: Zofran 4 MG/2 ML VIAL IV PRN (19:13)
[2019-01-02] MEDS ORDERED: TYLENOL 325 MG PO PRN (19:13)
[2019-01-02] MEDS ORDERED: Kayexylate 15 GM/60 ML PO ONE (19:13)
[2019-01-02] MEDS: Sodium Chloride 0.9% 1000 ML 1,000 ML IV SCH (19:52)
[2019-01-02 20:28] LABS: ABO TYPING A; Antibody Screen NEGATIVE (NEGATIVE); RH TYPING POSITIVE
[2019-01-02 20:33] LABS: CROSS MATCH (PRBC) COMPATIBLE (COMPATIBLE)
[2019-01-02] MEDS ORDERED: NovoLOG Insulin SQ PRN (20:39)
[2019-01-02] MEDS ORDERED: Catapres-TTS 1 PATCH TOP SCH (20:45)
[2019-01-02] MEDS: Apresoline 25 MG TABLET PO SCH (22:19)
[2019-01-02] MEDS: ECOTRIN 81 MG PO SCH (22:19)
[2019-01-02] MEDS: COREG 12.5 MG PO SCH (22:19)
[2019-01-02] MEDS: Zocor 10MG PO SCH (22:20)
[2019-01-02] MEDS ORDERED: Lasix 20 MG/2 ML IV PRN (23:00)
[2019-01-03 03:43] LABS: Slide Review 1 YES
[2019-01-03 06:37] LABS: BASOPHIL % 0.4 % (0.0-0.4); Basophil (Absolute #) 0.02 (0-0.4); Eosinophil % 2.3 % (0.00-5.0); Eosinophil (Absolute #) 0.13 (0-0.5); Granulocyte Absolute (ANC) 3.83 (1.4-6.9); Granulocytes % 68.5 % (36.0-66.0); Hematocrit 26.6 % (42-50); Hemoglobin 7.9 gm/dl (12.5-18.0); Lymphocyte (Absolute #) 0.88 (1.0-4.6); Lymphocytes % 15.7 % (24.0-44.0); Mean Cell Volume 74.7 fl (78-100); Mean Corpuscular Hgb Concent. 29.7 g/dl (32-36); Mean Platelet Volume 11.5 fl (6-9.5); Monocyte (Absolute #) 0.73 (0.0-1.3); Monocytes % 13.1 % (0.0-12.0); Platelet Count 193 K/mm3 (150-450); Red Blood Count 3.56 M/mm3 (4.1-5.6); Red Cell Distribution Width 18.8 % (11.5-14.0); White Blood Count 5.6 K/mm3 (4.0-10.5)
[2019-01-03 06:44] LABS: Mean Corpuscular Hemoglobin 22.1 pg (26-32)
[2019-01-03 06:46] LABS: ANION GAP 15.4 MEQ/L (5-15); Calcium 9.6 mg/dL (8.4-10.2); Creatinine 1 1.88 mg/dL (0.66-1.25); Potassium 4.3 mmol/L (3.5-5.1)
--- NOTE | 2019-01-03 07:57 | PCM.HP ---
History of Present Illness - Chief Complaint Chief Complaint: Anemia; Renal Insufficiency; Hyperkalemia History of Present Illness: The patient is a 78-year-old male with family complaining of increasing weakness for the last 2-3 days. He wears oxygen continuously at home. When he stands up to walk to the bathroom, he becomes very short of breath and weak. He has a known history of anemia and has required frequent transfusions and iron infusions as well. He feels as if he is anemic again. He denies chest pain. He denies nausea or vomiting. He denies diarrhea. His family spoke with his local doctor today to inform him that he was becoming weaker. He saw his local doctor yesterday. His past medical history is significant for to minor recent strokes, he anemia, HTN, CHF, high cholesterol. Timing/Duration: day(s) (3), gradual onset, worse Severity: moderate Modifying Factors: Improves With: nothing Associated Symptoms: weakness, No abdominal pain, No chest pain, No loss of appetite - Review of Systems Constitutional: Fatigue, Lethargy, Weakness, No Fever, No Chills Eyes: No Symptoms Ears, Nose, & Throat: No Symptoms Respiratory: Short Of Breath, No Cough Cardiac: No Chest Pain, No Edema, No Syncope Abdominal/Gastrointestinal: No Abdominal Pain, No Nausea, No Vomiting, No Diarrhea Genitourinary Symptoms: No Dysuria Musculoskeletal: No Back Pain, No Neck Pain Skin: No Rash Neurological: No Dizziness, No Focal Weakness, No Sensory Changes Psychological: No Symptoms Endocrine: No Symptoms Hematologic/Lymphatic: No Symptoms Immunological/Allergic: No Symptoms Medications & Allergies Home Medications: Home Medication List Carvedilol 12.5 mg [Coreg 12.5 mg] 12.5 mg PO BID 05/01/15 [History Confirmed 01/02/19] Atorvastatin Calcium [Lipitor] 10 mg PO HS 04/24/17 [History Confirmed 01/02/19] PANTOPRAZOLE 40 mg Tablet [Protonix 40MG Tablet] 40 mg PO DAILY 04/24/17 [ History Confirmed 01/02/19] Aspirin 81 mg PO HS 05/21/18 [History Confirmed 01/02/19] Furosemide 20 mg [Lasix 20 mg] 10 mg PO DAILY 10/29/18 [History Confirmed 01/02/19] Clonidine [Catapres-Tts 1] 0.1 mg TD WEEKLY 01/02/19 [History Confirmed 01/02/19 ] HydrALAzine HCL 25 MG TAB [Apresoline 25 MG TABLET] 25 mg PO QID 01/02/19 [History Confirmed 01/02/19] Metformin HCl [Glucophage] 1,000 mg PO BID 01/02/19 [History Confirmed 01/02/19] Potassium Chloride 10 Meq Tab* [Klor Con 10 MEQ] 10 meq PO DAILY 01/02/19 [ History Confirmed 01/02/19] glyBURIDE [Glyburide] 2.5 mg PO DAILY 01/02/19 [History Confirmed 01/02/19] Allergies/Adverse Reactions: Allergies Allergy/AdvReac Type Severity Reaction Status Date / Time No Known Drug Allergies Allergy Verified 10/28/18 13:16 - Past Medical History Past Medical History: Yes Neurological History: Stroke ENT History: Cataracts, Other Cardiac History: High Cholesterol, Hypertension, Peripheral Vascular Disease Respiratory History: COPD Endocrine Medical History: Diabetes Type II Musculoskelatal History: No Pertinent History GI Medical History: Hemorrhoids, Other History: Renal Disease Pyscho-Social History: No Pertinent History Male Reproductive Disorders: Prostate Problems Comment: cellulitis. kadeem cataracts. no polyps , but a cluster of veins, enlarge prostate.shingles. drmatitis. Myositis. - Past Surgical History Past Surgical History: Yes Neuro Surgical History: No Pertinent History Cardiac History: Other Respiratory Surgery: No Pertinent History GI Surgical History: No Pertinent History Genitourinary Surgical Hx: No Pertinent History Musculskeletal Surgical Hx: Orthopedic Surgery Male Surgical History: No Pertinent History Other Surgical History: kadeem knee surgery. colonoscopy recent. 3 aortic stents - Social History Smoking Status: Never smoker Exposure to second hand smoke: No Alcohol: None Drug Use: none - Physical Exam Vital Signs: Vital Signs - 24 hr Temp Pulse Resp BP Pulse Ox 01/03/19 07:36 97.8 F 52 L 18 174/88 98 01/03/19 04:24 98.0 F 68 20 173/85 97 01/03/19 04:00 98 01/03/19 00:43 65 18 98 01/03/19 00:20 98.9 F 76 18 154/65 100 01/03/19 00:00 100 01/02/19 22:51 97.5 F 67 20 166/77 100 01/02/19 20:00 100 01/02/19 18:03 100 01/02/19 17:50 58 L 15 130/79 97 01/02/19 17:40 68 28 H 99 01/02/19 16:50 67 20 154/82 100 01/02/19 16:11 98.1 F 63 24 161/83 100 Oxygen-Last 24 hours O2 Percentage 2 Liters = 28% O2 Percentage 2 Liters = 28% O2 Percentage 2 Liters = 28% O2 Percentage 2 Liters = 28% O2 Percentage 3 Liters = 32% General Appearance: no apparent distress, alert Neurologic Exam: alert, oriented x 3, cooperative, normal mood/affect, nml cerebellar function, nml station & gait, sensation nml, No motor deficits Eye Exam: PERRL/EOMI, eyes nml inspection Ears, Nose, Throat Exam: normal ENT inspection, TMs normal, pharynx normal, moist mucous membranes Neck Exam: normal inspection, non-tender, supple, full range of motion Respiratory Exam: normal breath sounds, lungs clear, No respiratory distress Cardiovascular Exam: regular rate/rhythm, normal heart sounds, normal peripheral pulses Gastrointestinal/Abdomen Exam: soft, normal bowel sounds, No tenderness, No mass Back Exam: normal inspection, normal range of motion, No CVA tenderness, No vertebral tenderness Extremity Exam: normal inspection, normal range of motion, pelvis stable Skin Exam: normal color, warm, dry, No rash Lymphatic Exam: No adenopathy Results - Labs Lab/Micro Results: Accuchecks Date 01/02/19 Time 22:00 Accucheck Value: 105 Lab Results-Last 24 Hours 01/02/19 01/02/19 01/02/19 Range/Units 00:35 00:35 16:30 WBC 4.9 (4.0-10.5) K/mm3 RBC 2.88 L (4.1-5.6) M/mm3 Hgb 6.1 L* (12.5-18.0) gm/dl Hct 21.8 L (42-50) % MCV 75.7 L (78-100) fl MCH 21.1 L (26-32) pg MCHC 28.0 L (32-36) g/dl RDW 18.7 H (11.5-14.0) % Plt Count 202 (150-450) K/mm3 MPV 12.0 H (6-9.5) fl Gran % 72.2 H (36.0-66.0) % Eos # (Auto) 0.07 (0-0.5) Absolute Lymphs (auto) 0.74 L (1.0-4.6) Absolute Monos (auto) 0.53 (0.0-1.3) Lymphocytes % 15.3 L (24.0-44.0) % Monocytes % 10.9 (0.0-12.0) % Eosinophils % 1.4 (0.00-5.0) % Basophils % 0.2 (0.0-0.4) % Absolute Granulocytes 3.50 (1.4-6.9) Basophils # 0.01 (0-0.4) Sodium (137-145) mmol/L Potassium 4.8 (3.5-5.1) mmol/L Chloride (98-107) mmol/L Carbon Dioxide (22-30) mmol/L Anion Gap (5-15) MEQ/L BUN (9-20) mg/dL Creatinine (0.66-1.25) mg/dL Estimated GFR ML/MIN Glucose (74-106) mg/dL Lactic Acid (0.4-2.0) Calcium (8.4-10.2) mg/dL Total Bilirubin (0.2-1.3) mg/dL AST (17-59) U/L ALT (0-50) U/L Alkaline Phosphatase (38-126) U/L Troponin I < 0.012 (0.000-0.034) ng/mL NT-Pro-B Natriuret Pep (0-1800) pg/mL Serum Total Protein (6.3-8.2) g/dL Albumin (3.5-5.0) g/dL Lipase (23-300) U/L Urine Color (YELLOW) Urine Appearance (CLEAR) Urine pH (5-6) Ur Specific Pool (1.005-1.025) Urine Protein (Negative) Urine Ketones (NEGATIVE) Urine Blood (0-5) Crescencio/ul Urine Nitrite (NEGATIVE) Urine Bilirubin (NEGATIVE) Urine Urobilinogen (0-1) mg/dL Ur Leukocyte Esterase (NEGATIVE) Urine WBC (Auto) (0-5) /HPF Urine RBC (Auto) (0-2) /HPF U Hyaline Cast (Auto) (0-2) /LPF U Epithel Cells (Auto) (FEW) /HPF Urine Bacteria (Auto) (NEGATIVE) /HPF Urine Mucus (Auto) (NEGATIVE) /HPF Urine Culture Reflexed (NO) Urine Glucose (NEGATIVE) mg/dL Stool Occult Bld Scrn (NEGATIVE) Slides for Path Review YES ABO Group Rh Factor Antibody Screen (NEGATIVE) Crossmatch (COMPATIBLE) 01/02/19 01/02/19 01/02/19 Range/Units 16:30 16:30 16:30 WBC (4.0-10.5) K/mm3 RBC (4.1-5.6) M/mm3 Hgb (12.5-18.0) gm/dl Hct (42-50) % MCV (78-100) fl MCH (26-32) pg MCHC (32-36) g/dl RDW (11.5-14.0) % Plt Count (150-450) K/mm3 MPV (6-9.5) fl Gran % (36.0-66.0) % Eos # (Auto) (0-0.5) Absolute Lymphs (auto) (1.0-4.6) Absolute Monos (auto) (0.0-1.3) Lymphocytes % (24.0-44.0) % Monocytes % (0.0-12.0) % Eosinophils % (0.00-5.0) % Basophils % (0.0-0.4) % Absolute Granulocytes (1.4-6.9) Basophils # (0-0.4) Sodium 144 (137-145) mmol/L Potassium 5.5 H (3.5-5.1) mmol/L Chloride 108 H (98-107) mmol/L Carbon Dioxide 24 (22-30) mmol/L Anion Gap 17.4 H (5-15) MEQ/L BUN 36 H (9-20) mg/dL Creatinine 2.04 H (0.66-1.25) mg/dL Estimated GFR 33.7 ML/MIN Glucose 87 (74-106) mg/dL Lactic Acid (0.4-2.0) Calcium 9.4 (8.4-10.2) mg/dL Total Bilirubin 0.50 (0.2-1.3) mg/dL AST 10 L (17-59) U/L ALT 12 (0-50) U/L Alkaline Phosphatase 55 (38-126) U/L Troponin I < 0.012 (0.000-0.034) ng/mL NT-Pro-B Natriuret Pep 2820 H (0-1800) pg/mL Serum Total Protein 7.0 (6.3-8.2) g/dL Albumin 4.1 (3.5-5.0) g/dL Lipase 225 (23-300) U/L Urine Color (YELLOW) Urine Appearance (CLEAR) Urine pH (5-6) Ur Specific Pool (1.005-1.025) Urine Protein (Negative) Urine Ketones (NEGATIVE) Urine Blood (0-5) Crescencio/ul Urine Nitrite (NEGATIVE) Urine Bilirubin (NEGATIVE) Urine Urobilinogen (0-1) mg/dL Ur Leukocyte Esterase (NEGATIVE) Urine WBC (Auto) (0-5) /HPF Urine RBC (Auto) (0-2) /HPF U Hyaline Cast (Auto) (0-2) /LPF U Epithel Cells (Auto) (FEW) /HPF Urine Bacteria (Auto) (NEGATIVE) /HPF Urine Mucus (Auto) (NEGATIVE) /HPF Urine Culture Reflexed (NO) Urine Glucose (NEGATIVE) mg/dL Stool Occult Bld Scrn (NEGATIVE) Slides for Path Review ABO Group Rh Factor Antibody Screen (NEGATIVE) Crossmatch (COMPATIBLE) 01/02/19 01/02/19 01/02/19 Range/Units 16:33 16:56 18:00 WBC (4.0-10.5) K/mm3 RBC (4.1-5.6) M/mm3 Hgb (12.5-18.0) gm/dl Hct (42-50) % MCV (78-100) fl MCH (26-32) pg MCHC (32-36) g/dl RDW (11.5-14.0) % Plt Count (150-450) K/mm3 MPV (6-9.5) fl Gran % (36.0-66.0) % Eos # (Auto) (0-0.5) Absolute Lymphs (auto) (1.0-4.6) Absolute Monos (auto) (0.0-1.3) Lymphocytes % (24.0-44.0) % Monocytes % (0.0-12.0) % Eosinophils % (0.00-5.0) % Basophils % (0.0-0.4) % Absolute Granulocytes (1.4-6.9) Basophils # (0-0.4) Sodium (137-145) mmol/L Potassium 5.7 H (3.5-5.1) mmol/L Chloride (98-107) mmol/L Carbon Dioxide (22-30) mmol/L Anion Gap (5-15) MEQ/L BUN (9-20) mg/dL Creatinine (0.66-1.25) mg/dL Estimated GFR ML/MIN Glucose (74-106) mg/dL Lactic Acid 2.5 H (0.4-2.0) Calcium (8.4-10.2) mg/dL Total Bilirubin (0.2-1.3) mg/dL AST (17-59) U/L ALT (0-50) U/L Alkaline Phosphatase (38-126) U/L Troponin I (0.000-0.034) ng/mL NT-Pro-B Natriuret Pep (0-1800) pg/mL Serum Total Protein (6.3-8.2) g/dL Albumin (3.5-5.0) g/dL Lipase (23-300) U/L Urine Color YELLOW (YELLOW) Urine Appearance CLEAR (CLEAR) Urine pH 5.0 (5-6) Ur Specific Pool 1.015 (1.005-1.025) Urine Protein 30 (Negative) Urine Ketones NEGATIVE (NEGATIVE) Urine Blood NEGATIVE (0-5) Crescencio/ul Urine Nitrite NEGATIVE (NEGATIVE) Urine Bilirubin NEGATIVE (NEGATIVE) Urine Urobilinogen NEGATIVE (0-1) mg/dL Ur Leukocyte Esterase NEGATIVE (NEGATIVE) Urine WBC (Auto) 0-2 (0-5) /HPF Urine RBC (Auto) NONE (0-2) /HPF U Hyaline Cast (Auto) 0-2 (0-2) /LPF U Epithel Cells (Auto) NONE (FEW) /HPF Urine Bacteria (Auto) NONE (NEGATIVE) /HPF Urine Mucus (Auto) SLIGHT (NEGATIVE) /HPF Urine Culture Reflexed NO (NO) Urine Glucose NEGATIVE (NEGATIVE) mg/dL Stool Occult Bld Scrn (NEGATIVE) Slides for Path Review ABO Group Rh Factor Antibody Screen (NEGATIVE) Crossmatch (COMPATIBLE) 01/02/19 01/02/19 01/02/19 Range/Units 18:00 18:00 20:00 WBC (4.0-10.5) K/mm3 RBC (4.1-5.6) M/mm3 Hgb (12.5-18.0) gm/dl Hct (42-50) % MCV (78-100) fl MCH (26-32) pg MCHC (32-36) g/dl RDW (11.5-14.0) % Plt Count (150-450) K/mm3 MPV (6-9.5) fl Gran % (36.0-66.0) % Eos # (Auto) (0-0.5) Absolute Lymphs (auto) (1.0-4.6) Absolute Monos (auto) (0.0-1.3) Lymphocytes % (24.0-44.0) % Monocytes % (0.0-12.0) % Eosinophils % (0.00-5.0) % Basophils % (0.0-0.4) % Absolute Granulocytes (1.4-6.9) Basophils # (0-0.4) Sodium (137-145) mmol/L Potassium (3.5-5.1) mmol/L Chloride (98-107) mmol/L Carbon Dioxide (22-30) mmol/L Anion Gap (5-15) MEQ/L BUN (9-20) mg/dL Creatinine (0.66-1.25) mg/dL Estimated GFR ML/MIN Glucose (74-106) mg/dL Lactic Acid (0.4-2.0) Calcium (8.4-10.2) mg/dL Total Bilirubin (0.2-1.3) mg/dL AST (17-59) U/L ALT (0-50) U/L Alkaline Phosphatase (38-126) U/L Troponin I < 0.012 (0.000-0.034) ng/mL NT-Pro-B Natriuret Pep (0-1800) pg/mL Serum Total Protein (6.3-8.2) g/dL Albumin (3.5-5.0) g/dL Lipase (23-300) U/L Urine Color (YELLOW) Urine Appearance (CLEAR) Urine pH (5-6) Ur Specific Pool (1.005-1.025) Urine Protein (Negative) Urine Ketones (NEGATIVE) Urine Blood (0-5) Crescencio/ul Urine Nitrite (NEGATIVE) Urine Bilirubin (NEGATIVE) Urine Urobilinogen (0-1) mg/dL Ur Leukocyte Esterase (NEGATIVE) Urine WBC (Auto) (0-5) /HPF Urine RBC (Auto) (0-2) /HPF U Hyaline Cast (Auto) (0-2) /LPF U Epithel Cells (Auto) (FEW) /HPF Urine Bacteria (Auto) (NEGATIVE) /HPF Urine Mucus (Auto) (NEGATIVE) /HPF Urine Culture Reflexed (NO) Urine Glucose (NEGATIVE) mg/dL Stool Occult Bld Scrn (NEGATIVE) Slides for Path Review ABO Group A Rh Factor POSITIVE Antibody Screen NEGATIVE (NEGATIVE) Crossmatch COMPATIBLE COMPATIBLE (COMPATIBLE) 01/02/19 01/03/19 01/03/19 Range/Units 22:00 01:45 05:05 WBC (4.0-10.5) K/mm3 RBC (4.1-5.6) M/mm3 Hgb (12.5-18.0) gm/dl Hct (42-50) % MCV (78-100) fl MCH (26-32) pg MCHC (32-36) g/dl RDW (11.5-14.0) % Plt Count (150-450) K/mm3 MPV (6-9.5) fl Gran % (36.0-66.0) % Eos # (Auto) (0-0.5) Absolute Lymphs (auto) (1.0-4.6) Absolute Monos (auto) (0.0-1.3) Lymphocytes % (24.0-44.0) % Monocytes % (0.0-12.0) % Eosinophils % (0.00-5.0) % Basophils % (0.0-0.4) % Absolute Granulocytes (1.4-6.9) Basophils # (0-0.4) Sodium (137-145) mmol/L Potassium (3.5-5.1) mmol/L Chloride (98-107) mmol/L Carbon Dioxide (22-30) mmol/L Anion Gap (5-15) MEQ/L BUN (9-20) mg/dL Creatinine (0.66-1.25) mg/dL Estimated GFR ML/MIN Glucose (74-106) mg/dL Lactic Acid (0.4-2.0) Calcium (8.4-10.2) mg/dL Total Bilirubin (0.2-1.3) mg/dL AST (17-59) U/L ALT (0-50) U/L Alkaline Phosphatase (38-126) U/L Troponin I < 0.012 0.014 (0.000-0.034) ng/mL NT-Pro-B Natriuret Pep (0-1800) pg/mL Serum Total Protein (6.3-8.2) g/dL Albumin (3.5-5.0) g/dL Lipase (23-300) U/L Urine Color (YELLOW) Urine Appearance (CLEAR) Urine pH (5-6) Ur Specific Pool (1.005-1.025) Urine Protein (Negative) Urine Ketones (NEGATIVE) Urine Blood (0-5) Crescencio/ul Urine Nitrite (NEGATIVE) Urine Bilirubin (NEGATIVE) Urine Urobilinogen (0-1) mg/dL Ur Leukocyte Esterase (NEGATIVE) Urine WBC (Auto) (0-5) /HPF Urine RBC (Auto) (0-2) /HPF U Hyaline Cast (Auto) (0-2) /LPF U Epithel Cells (Auto) (FEW) /HPF Urine Bacteria (Auto) (NEGATIVE) /HPF Urine Mucus (Auto) (NEGATIVE) /HPF Urine Culture Reflexed (NO) Urine Glucose (NEGATIVE) mg/dL Stool Occult Bld Scrn POSITIVE A (NEGATIVE) Slides for Path Review ABO Group Rh Factor Antibody Screen (NEGATIVE) Crossmatch (COMPATIBLE) 01/03/19 01/03/19 Range/Units 05:05 05:05 WBC 5.6 (4.0-10.5) K/mm3 RBC 3.56 L (4.1-5.6) M/mm3 Hgb 7.9 L D (12.5-18.0) gm/dl Hct 26.6 L (42-50) % MCV 74.7 L (78-100) fl MCH 22.1 L (26-32) pg MCHC 29.7 L (32-36) g/dl RDW 18.8 H (11.5-14.0) % Plt Count 193 (150-450) K/mm3 MPV 11.5 H (6-9.5) fl Gran % 68.5 H (36.0-66.0) % Eos # (Auto) 0.13 (0-0.5) Absolute Lymphs (auto) 0.88 L (1.0-4.6) Absolute Monos (auto) 0.73 (0.0-1.3) Lymphocytes % 15.7 L (24.0-44.0) % Monocytes % 13.1 H (0.0-12.0) % Eosinophils % 2.3 (0.00-5.0) % Basophils % 0.4 (0.0-0.4) % Absolute Granulocytes 3.83 (1.4-6.9) Basophils # 0.02 (0-0.4) Sodium 145 (137-145) mmol/L Potassium 4.3 D (3.5-5.1) mmol/L Chloride 108 H (98-107) mmol/L Carbon Dioxide 25 (22-30) mmol/L Anion Gap 15.4 H (5-15) MEQ/L BUN 35 H (9-20) mg/dL Creatinine 1.88 H (0.66-1.25) mg/dL Estimated GFR 37.1 ML/MIN Glucose 57 L (74-106) mg/dL Lactic Acid (0.4-2.0) Calcium 9.6 (8.4-10.2) mg/dL Total Bilirubin (0.2-1.3) mg/dL AST (17-59) U/L ALT (0-50) U/L Alkaline Phosphatase (38-126) U/L Troponin I (0.000-0.034) ng/mL NT-Pro-B Natriuret Pep (0-1800) pg/mL Serum Total Protein (6.3-8.2) g/dL Albumin (3.5-5.0) g/dL Lipase (23-300) U/L Urine Color (YELLOW) Urine Appearance (CLEAR) Urine pH (5-6) Ur Specific Pool (1.005-1.025) Urine Protein (Negative) Urine Ketones (NEGATIVE) Urine Blood (0-5) Crescencio/ul Urine Nitrite (NEGATIVE) Urine Bilirubin (NEGATIVE) Urine Urobilinogen (0-1) mg/dL Ur Leukocyte Esterase (NEGATIVE) Urine WBC (Auto) (0-5) /HPF Urine RBC (Auto) (0-2) /HPF U Hyaline Cast (Auto) (0-2) /LPF U Epithel Cells (Auto) (FEW) /HPF Urine Bacteria (Auto) (NEGATIVE) /HPF Urine Mucus (Auto) (NEGATIVE) /HPF Urine Culture Reflexed (NO) Urine Glucose (NEGATIVE) mg/dL Stool Occult Bld Scrn (NEGATIVE) Slides for Path Review ABO Group Rh Factor Antibody Screen (NEGATIVE) Crossmatch (COMPATIBLE) Accuchecks Date 01/02/19 Time 22:00 Accucheck Value: 105 - Other Procedures and Tests Respiratory Therapy 01/02/19 19:13 Oxygen Nasal Cannula 2 lpm 01/03/19 00:56 Respiratory Therapy Assessment DAILY Assessment/Plan (1) Atrial fibrillation Current Visit: Yes Status: Acute Code(s): I48.91 - UNSPECIFIED ATRIAL FIBRILLATION (2) Anemia Current Visit: Yes Status: Acute Qualifiers: Anemia type: iron deficiency Iron deficiency anemia type: chronic blood loss Qualified Code(s): D50.0 - Iron deficiency anemia secondary to blood loss (chronic) Code(s): D64.9 - ANEMIA, UNSPECIFIED (3) Hyperkalemia Current Visit: Yes Status: Acute Code(s): E87.5 - HYPERKALEMIA (4) Renal insufficiency Current Visit: Yes Status: Chronic
[2019-01-03 07:59] LABS: Slide Review 1 YES
[2019-01-03] MEDS: Apresoline 25 MG TABLET PO SCH ×4 (09:15→21:53)
[2019-01-03] MEDS: LASIX 20 MG PO SCH (09:15)
[2019-01-03] MEDS: COREG 12.5 MG PO SCH ×2 (09:16→21:53)
[2019-01-03] MEDS: Micronase 5 MG PO SCH (09:16)
[2019-01-03] MEDS: Protonix 40MG Tablet PO SCH (09:16)
[2019-01-03] MEDS: ENOXAPARIN SODIUM SQ SCH (09:17)
[2019-01-03] MEDS ORDERED: GLYBURIDE 2.5 MG PO SCH (10:00)
[2019-01-03] MEDS ORDERED: NON-FORMULARY ITEM (Metformin Hcl [Glucophage] 1,000 MG) PO SCH (10:00)
[2019-01-03] MEDS: Sodium Chloride 0.9% 1000 ML 1,000 ML IV SCH (13:10)
[2019-01-03] MEDS: Glucophage 500 MG PO SCH (17:28)
[2019-01-03] MEDS: ECOTRIN 81 MG PO SCH (21:53)
[2019-01-03] MEDS: Zocor 10MG PO SCH (21:54)
[2019-01-04 06:13] LABS: Hematocrit 26.4 % (42-50); Mean Cell Volume 74.2 fl (78-100); Mean Corpuscular Hemoglobin 21.9 pg (26-32); Mean Corpuscular Hgb Concent. 29.5 g/dl (32-36); Mean Platelet Volume 11.1 fl (6-9.5); Platelet Count 193 K/mm3 (150-450); Red Blood Count 3.56 M/mm3 (4.1-5.6); Red Cell Distribution Width 18.9 % (11.5-14.0)
[2019-01-04 06:17] LABS: ANION GAP 15.7 MEQ/L (5-15); Calcium 9.3 mg/dL (8.4-10.2); Creatinine 1 1.83 mg/dL (0.66-1.25); Potassium 4.1 mmol/L (3.5-5.1)
[2019-01-04 06:41] LABS: Hemoglobin 7.8 gm/dl (12.5-18.0)
[2019-01-04 07:40] LABS: Slide Review YES
[2019-01-04] MEDS: Glucophage 500 MG PO SCH (07:47)
[2019-01-04] MEDS: Apresoline 25 MG TABLET PO SCH (10:09)
[2019-01-04] MEDS: COREG 12.5 MG PO SCH (10:09)
[2019-01-04] MEDS: ENOXAPARIN SODIUM SQ SCH (10:10)
[2019-01-04] MEDS: LASIX 20 MG PO SCH (10:10)
[2019-01-04] MEDS: Micronase 5 MG PO SCH (10:11)
[2019-01-04] MEDS: Protonix 40MG Tablet PO SCH (10:11)
[2019-01-04 11:28] VITALS: BP 134/88; PULSE 53; O2SAT 100
== END 2019-01-04 13:15 | disposition home or self-care (01) ==
LOC: ED 15:52 → MED SURG 18:54 → INTOOBSV 18:54
PROVIDERS: ADMIT General Practice; ATTEND General Practice
DX: I48.91 Unspecified atrial fibrillation (principal); D64.9 Anemia, unspecified; E87.5 Hyperkalemia; N28.9 Disorder of kidney and ureter, unspecified; I10 Essential (primary) hypertension; I50.9 Heart failure, unspecified; E78.00 Pure hypercholesterolemia, unspecified; I73.9 Peripheral vascular disease, unspecified; E11.9 Type 2 diabetes mellitus without complications; Z79.4 Long term (current) use of insulin
CPT/HCPCS: 36000; 36415; 36430; 80048; 80053; 81001; 82270; 82962; 83605; 83690; 83880; 84132; 84484; 85025; 85027; 86850; 86900; 86901; 86922; 87210; 93005; 93268; 94760; 99285; G0378; P9016; J1650; J1940; A9270-GY

== ENCOUNTER 2019-01-10 11:03 | Observation (INO) | payer MEDICARE ==
[2019-01-10 11:42] LABS: BASOPHIL % 0.4 % (0.0-0.4); Basophil (Absolute #) 0.02 (0-0.4); Eosinophil % 2.2 % (0.00-5.0); Eosinophil (Absolute #) 0.11 (0-0.5); Granulocyte Absolute (ANC) 3.79 (1.4-6.9); Hemoglobin 7.6 gm/dl (12.5-18.0); Lymphocyte (Absolute #) 0.53 (1.0-4.6); Lymphocytes % 10.8 % (24.0-44.0); Mean Cell Volume 77.6 fl (78-100); Mean Corpuscular Hemoglobin 21.8 pg (26-32); Mean Corpuscular Hgb Concent. 28.1 g/dl (32-36); Mean Platelet Volume 10.4 fl (6-9.5); Monocyte (Absolute #) 0.47 (0.0-1.3); Monocytes % 9.6 % (0.0-12.0); Platelet Count 170 K/mm3 (150-450); Red Blood Count 3.48 M/mm3 (4.1-5.6); Red Cell Distribution Width 20.1 % (11.5-14.0); White Blood Count 4.9 K/mm3 (4.0-10.5)
[2019-01-10 11:53] LABS: ANION GAP 13.1 MEQ/L (5-15); Calcium 8.9 mg/dL (8.4-10.2); Creatinine 1 1.54 mg/dL (0.66-1.25); Potassium 4.8 mmol/L (3.5-5.1)
[2019-01-10 12:36] LABS: Slide Review 1 YES
[2019-01-10 13:09] LABS: Appearance CLEAR (CLEAR); Bilirubin NEGATIVE (NEGATIVE); Blood NEGATIVE Ery/ul (0-5); Glucose NEGATIVE (NEGATIVE); Ketones NEGATIVE (NEGATIVE); Leukocyte Esterase NEGATIVE (NEGATIVE); Nitrite NEGATIVE (NEGATIVE); Protein,Urine Dip NEGATIVE (Negative); Specific Gravity 1.006 (1.005-1.025); Urobilinogen NEGATIVE mg/dL (0-1)
--- NOTE | 2019-01-10 13:49 | ERPHSYRPT ---
- History of Present Illness Source: patient, family Exam Limitations: no limitations Patient Subjective Stated Complaint: pt here for possible stroke today, he states syptoms started this morning at 1000 per pt and family, he states that hes right eye started drawing up, and hes not able to use right arm well with tremors,he states that hes right arm does not work well from last stroke. pt refuses to lay down in bed, he states you cant back me, Triage Nursing Assessment: pt arrived per wc. alert,oriented x3,resp easy, skin w/d/p, no edema noted, chest clear Physician History: Pt is a 78 y/o male with a h/o CVA, anemia, GI bleed, and A fib. Pt is on ASA, but can't take Plavix secondary to his anemia, and GI bleed. Pt stated, that was at his baseline, when suddenly noticed twitching in his R arm, and his right eye, that caused change in his lower face. By the time pt came to the ED it was resolved and was normal. Pt denies syncope, dysphagia, dysphasia. Timing/Duration: today Character of Deficits: altered sensation, Right Facial, RUE, other (eye twitching) Baseline/Normal Cognition: alert oriented x 3 Current Cognition: alert oriented x 3 Allergies/Adverse Reactions: No Known Drug Allergies Allergy (Verified 01/10/19 11:22) Home Medications: Carvedilol 12.5 mg [Coreg 12.5 mg] 12.5 mg PO BID 05/01/15 [History] Atorvastatin Calcium [Lipitor] 10 mg PO HS 04/24/17 [History] PANTOPRAZOLE 40 mg Tablet [Protonix 40MG Tablet] 40 mg PO DAILY 04/24/17 [ History] Aspirin 81 mg PO HS 05/21/18 [History] Furosemide 20 mg [Lasix 20 mg] 10 mg PO DAILY 10/29/18 [History] Clonidine [Catapres-Tts 1] 0.1 mg TD WEEKLY 01/02/19 [History] HydrALAzine HCL 25 MG TAB [Apresoline 25 MG TABLET] 25 mg PO QID 01/02/19 [History] Metformin HCl [Glucophage] 1,000 mg PO BID 01/02/19 [History] Potassium Chloride 10 Meq Tab* [Klor Con 10 MEQ] 10 meq PO DAILY 01/02/19 [ History] glyBURIDE [Glyburide] 2.5 mg PO DAILY 01/02/19 [History] Hx Tetanus, Diphtheria Vaccination/Date Given: Yes Hx Influenza Vaccination/Date Given: No Hx Pneumococcal Vaccination/Date Given: No Immunizations Up to Date: Yes - Review of Systems Constitutional: No Fever, No Chills Eyes: Other (twitching in eye muscles.) Respiratory: No Cough, No Dyspnea Cardiac: No Chest Pain, No Edema, No Syncope Abdominal/Gastrointestinal: No Abdominal Pain, No Nausea, No Vomiting, No Diarrhea Musculoskeletal: No Back Pain, No Neck Pain Neurological: Tics (in right eye), Other (twitching in R hand) - Past Medical History Pertinent Past Medical History: Yes Neurological History: Stroke ENT History: Cataracts, Other Cardiac History: High Cholesterol, Hypertension, Peripheral Vascular Disease Respiratory History: COPD Endocrine Medical History: Diabetes Type II Musculoskeletal History: No Pertinent History GI Medical History: Hemorrhoids, Other History: Renal Disease Psycho-Social History: No Pertinent History Male Reproductive Disorders: Prostate Problems Other Medical History: cellulitis. kadeem cataracts. no polyps , but a cluster of veins, enlarge prostate.shingles. drmatitis. Myositis. - Past Surgical History Past Surgical History: Yes Neuro Surgical History: No Pertinent History Cardiac: Other Respiratory: No Pertinent History Gastrointestinal: No Pertinent History Genitourinary: No Pertinent History Musculoskeletal: Orthopedic Surgery Male Surgical History: No Pertinent History Other Surgical History: kadeem knee surgery. colonoscopy recent. 3 aortic stents - Social History Smoking Status: Former smoker Exposure to second hand smoke: No Drug Use: none Patient Lives Alone: No - Nursing Vital Signs Nursing Vital Signs: Initial Vital Signs Temperature 97.0 F 01/10/19 11:04 Pulse Rate 67 01/10/19 11:04 Respiratory Rate 16 01/10/19 11:04 Blood Pressure 146/81 01/10/19 11:04 O2 Sat by Pulse Oximetry 99 01/10/19 11:04 Pain Scale Pain Intensity 0 - Lauri Coma Scale Best Eye Response (Lauri): (4) open spontaneously Best Verbal Response (Lauri): (5) oriented Best Motor Response (Henderson): (6) obeys commands Henderson Total: 15 - Physical Exam Eye Exam: bilateral eye: normal inspection, PERRL, EOMI Ears, Nose, Throat Exam: normal ENT inspection, moist mucous membranes Neck Exam: normal inspection, non-tender, supple Respiratory: normal breath sounds, lungs clear, airway intact, No respiratory distress Cardiovascular: regular rate/rhythm, No edema Gastrointestinal: soft, No tenderness, No distention Extremity Exam: other (change in R hand control and strength) Mental Status: alert, oriented x 3 Motor/Sensory: pronator drift (L), weak motor strength RUE SpO2: 97 - Course Nursing assessment & vital signs reviewed: Yes EKG Interpreted by Me: RATE (55bpm), Sinus Yuan, Other (prior NH) Ordered Tests: Active Orders 24 hr Category Date Time Status EKG-ER Only STAT Care 01/10/19 11:18 Active IV Insertion STAT Care 01/10/19 11:18 Active NPO (ED) STAT Care 01/10/19 11:18 Active HEAD WITH CONTRAST [CT] Stat Exams 01/10/19 11:06 Taken BMP Stat Lab 01/10/19 11:30 Completed CBC W DIFF Stat Lab 01/10/19 11:30 Completed TROPONIN Q3H Lab 01/10/19 11:30 Completed TROPONIN Q3H Lab 01/10/19 14:30 Ordered TROPONIN Q3H Lab 01/10/19 17:30 Ordered TROPONIN Q3H Lab 01/10/19 20:30 Ordered TROPONIN Q3H Lab 01/10/19 23:30 Ordered UA W/RFX UR CULTURE Stat Lab 01/10/19 12:58 Completed Lab/Rad Data: Laboratory Result Diagrams 01/10/19 11:30 01/10/19 11:30 Laboratory Results 01/10/19 01/10/19 01/10/19 Range/Units 12:58 11:30 11:30 WBC (4.0-10.5) K/mm3 RBC (4.1-5.6) M/mm3 Hgb (12.5-18.0) gm/dl Hct (42-50) % MCV (78-100) fl MCH (26-32) pg MCHC (32-36) g/dl RDW (11.5-14.0) % Plt Count (150-450) K/mm3 MPV (6-9.5) fl Gran % (36.0-66.0) % Eos # (Auto) (0-0.5) Absolute Lymphs (auto) (1.0-4.6) Absolute Monos (auto) (0.0-1.3) Lymphocytes % (24.0-44.0) % Monocytes % (0.0-12.0) % Eosinophils % (0.00-5.0) % Basophils % (0.0-0.4) % Absolute Granulocytes (1.4-6.9) Basophils # (0-0.4) Sodium 142 (137-145) mmol/L Potassium 4.8 (3.5-5.1) mmol/L Chloride 106 (98-107) mmol/L Carbon Dioxide 27 (22-30) mmol/L Anion Gap 13.1 (5-15) MEQ/L BUN 24 H (9-20) mg/dL Creatinine 1.54 H (0.66-1.25) mg/dL Estimated GFR 46.7 ML/MIN Glucose 124 H (74-106) mg/dL Calcium 8.9 (8.4-10.2) mg/dL Troponin I < 0.012 (0.000-0.034) ng/mL Urine Color STRAW (YELLOW) Urine Appearance CLEAR (CLEAR) Urine pH 6.0 (5-6) Ur Specific Alden 1.006 (1.005-1.025) Urine Protein NEGATIVE (Negative) Urine Ketones NEGATIVE (NEGATIVE) Urine Blood NEGATIVE (0-5) Crescencio/ul Urine Nitrite NEGATIVE (NEGATIVE) Urine Bilirubin NEGATIVE (NEGATIVE) Urine Urobilinogen NEGATIVE (0-1) mg/dL Ur Leukocyte Esterase NEGATIVE (NEGATIVE) Urine WBC (Auto) NONE (0-5) /HPF Urine RBC (Auto) NONE (0-2) /HPF U Epithel Cells (Auto) NONE (FEW) /HPF Urine Bacteria (Auto) NONE (NEGATIVE) /HPF Urine Culture Reflexed NO (NO) Urine Glucose NEGATIVE (NEGATIVE) mg/dL Slides for Path Review 01/10/19 Range/Units 11:30 WBC 4.9 (4.0-10.5) K/mm3 RBC 3.48 L (4.1-5.6) M/mm3 Hgb 7.6 L (12.5-18.0) gm/dl Hct 27.0 L (42-50) % MCV 77.6 L (78-100) fl MCH 21.8 L (26-32) pg MCHC 28.1 L (32-36) g/dl RDW 20.1 H (11.5-14.0) % Plt Count 170 (150-450) K/mm3 MPV 10.4 H (6-9.5) fl Gran % 77.0 H (36.0-66.0) % Eos # (Auto) 0.11 (0-0.5) Absolute Lymphs (auto) 0.53 L (1.0-4.6) Absolute Monos (auto) 0.47 (0.0-1.3) Lymphocytes % 10.8 L (24.0-44.0) % Monocytes % 9.6 (0.0-12.0) % Eosinophils % 2.2 (0.00-5.0) % Basophils % 0.4 (0.0-0.4) % Absolute Granulocytes 3.79 (1.4-6.9) Basophils # 0.02 (0-0.4) Sodium (137-145) mmol/L Potassium (3.5-5.1) mmol/L Chloride (98-107) mmol/L Carbon Dioxide (22-30) mmol/L Anion Gap (5-15) MEQ/L BUN (9-20) mg/dL Creatinine (0.66-1.25) mg/dL Estimated GFR ML/MIN Glucose (74-106) mg/dL Calcium (8.4-10.2) mg/dL Troponin I (0.000-0.034) ng/mL Urine Color (YELLOW) Urine Appearance (CLEAR) Urine pH (5-6) Ur Specific Alden (1.005-1.025) Urine Protein (Negative) Urine Ketones (NEGATIVE) Urine Blood (0-5) Crescencio/ul Urine Nitrite (NEGATIVE) Urine Bilirubin (NEGATIVE) Urine Urobilinogen (0-1) mg/dL Ur Leukocyte Esterase (NEGATIVE) Urine WBC (Auto) (0-5) /HPF Urine RBC (Auto) (0-2) /HPF U Epithel Cells (Auto) (FEW) /HPF Urine Bacteria (Auto) (NEGATIVE) /HPF Urine Culture Reflexed (NO) Urine Glucose (NEGATIVE) mg/dL Slides for Path Review YES - Progress Progress: unchanged Progress Note: 01/10/19 13:54 Pt was evaluated in the ER. CT showed no new abnormality. Tele neurology was done, and neurologist recommends Carotid dopplers, CT in 24 hrs, and keppra 500mg BID. EEG as out pt. Pt will be placed in obs in the hospital. Discussed with : Sondra Guerra Will see patient in: hospital (observation) - Departure Time of Disposition: 13:56 Departure Disposition: Observation Clinical Impression: Seizure Condition: Stable Critical Care Time: No Referrals: BRIDGET LAU MD [Primary Care Provider] -
[2019-01-10] MEDS ORDERED: Sodium Chloride 0.9% 1000 ML 1,000 ML IV SCH (14:00)
[2019-01-10] MEDS ORDERED: NovoLOG Insulin SQ PRN (16:43)
[2019-01-10 17:19] LABS: MAGNESIUM 2.3 mg/dL (1.6-2.3); TSH, 3RD Generation 1.31 mIU/L (0.47-4.68)
--- NOTE | 2019-01-10 19:35 | XRAY ---
Indication: Weakness. Multiple contiguous axial images obtained through the head without contrast. Comparison: None Images through base of brain degraded by motion artifact. Age-appropriate global atrophy, mild periventricular degenerative micro-ischemia bilaterally, and old left temporoparietal infarct. No acute intracranial hemorrhage, hydrocephalus, or mass effect. Bony calvarium intact. Visualized paranasal sinuses and mastoid air cells are clear. Impression: 1. Motion artifact. 2. Atrophy, degenerative micro-ischemia, and old left temporoparietal infarct. 3. No acute intracranial abnormalities. Comment: Preliminary interpretation was made by [facility]. No discrepancy. CTDI 68.51
[2019-01-10] MEDS ORDERED: Glucophage 850 MG PO SCH (22:00)
[2019-01-10] MEDS ORDERED: Zocor 10MG PO SCH (22:00)
[2019-01-10] MEDS ORDERED: BABY ASPIRIN 81 MG CHEW PO SCH (22:00)
[2019-01-10] MEDS ORDERED: Glucophage 500 MG ONE (22:25)
[2019-01-10] MEDS ORDERED: ECOTRIN 81 MG PO ONE (22:27)
[2019-01-10] MEDS ORDERED: ECOTRIN 81 MG PO SCH (22:32)
[2019-01-10] MEDS: KEPPRA 500 MG PO SCH (22:34)
[2019-01-10] MEDS: Apresoline 25 MG TABLET PO SCH (22:35)
[2019-01-10] MEDS: COREG 12.5 MG PO SCH (22:35)
[2019-01-10] MEDS: Glucophage 500 MG PO SCH (22:36)
[2019-01-11 06:37] LABS: ANION GAP 12.3 MEQ/L (5-15); Calcium 8.9 mg/dL (8.4-10.2); Creatinine 1 1.56 mg/dL (0.66-1.25); Potassium 4.9 mmol/L (3.5-5.1)
[2019-01-11 06:50] LABS: BASOPHIL % 0.6 % (0.0-0.4); Basophil (Absolute #) 0.03 (0-0.4); Eosinophil % 2.8 % (0.00-5.0); Eosinophil (Absolute #) 0.14 (0-0.5); Granulocyte Absolute (ANC) 3.39 (1.4-6.9); Granulocytes % 68.8 % (36.0-66.0); Hematocrit 24.9 % (42-50); Hemoglobin 7.2 gm/dl (12.5-18.0); Lymphocyte (Absolute #) 0.76 (1.0-4.6); Lymphocytes % 15.4 % (24.0-44.0); Mean Cell Volume 76.6 fl (78-100); Mean Corpuscular Hemoglobin 22.1 pg (26-32); Mean Corpuscular Hgb Concent. 28.9 g/dl (32-36); Mean Platelet Volume 11.2 fl (6-9.5); Monocyte (Absolute #) 0.61 (0.0-1.3); Monocytes % 12.4 % (0.0-12.0); Platelet Count 158 K/mm3 (150-450); Red Blood Count 3.25 M/mm3 (4.1-5.6); Red Cell Distribution Width 19.8 % (11.5-14.0); White Blood Count 4.9 K/mm3 (4.0-10.5)
[2019-01-11] MEDS ORDERED: Micronase 5 MG PO SCH (08:00)
[2019-01-11 08:08] LABS: Slide Review 1 YES
[2019-01-11] MEDS: Glucophage 500 MG PO SCH (08:53)
[2019-01-11] MEDS: Apresoline 25 MG TABLET PO SCH ×2 (08:54→13:27)
[2019-01-11] MEDS: COREG 12.5 MG PO SCH (08:55)
[2019-01-11] MEDS: KEPPRA 500 MG PO SCH (08:55)
--- NOTE | 2019-01-11 09:37 | HP ---
HISTORY OF PRESENT ILLNESS: The patient is a poor historian, was only able to give some history. The history has been gathered from emergency room patient's chart, discussion with nursing staff. No family members were available at the time of this evaluation. Michelle Najera is a 78 year old male with past medical history of hypertension, congestive heart failure, coronary artery disease, atrial fibrillation, chronic anemia, prior CVA with right upper extremity weakness, chronic obstructive pulmonary disease, hyperlipidemia and prior history of GI bleed. He presented to the emergency room today with symptoms of twitching of his right eye and not being able to move his right arm well with tremors. The symptoms occurred around 1000 hours, he had change in his lower face however reportedly the symptoms had resolved by the time the patient presented to the emergency room. Upon evaluation in the emergency room the patient was noted to be alert, oriented x3. Initial vitals showed blood pressure 143/81, heart rate 67, respiratory rate 16 and temperature 97F. Oxygen saturation of 99%. Lauri scale of 15. Initial work up was notable for negative CT of head. Tele-neurology consultation was done. As per tele-neurology, the patient was felt to have possible focal seizures and the patient was not felt to be a candidate per tele-neurologist. A trial of Keppra was suggested and a follow up CT was suggested. The patient was admitted to medical floor for further monitoring and management. At the time of this evaluation he is alert, awake, comfortable, denies any complaints. States his symptoms of right eye twitching has resolved and right upper extremity weakness is about his baseline. Denies any other complaints. PAST MEDICAL HISTORY: As noted above. Diabetes mellitus. History of renal insufficiency in the past. The patient is unable to take any anticoagulation due to prior history of GI bleeding and chronic anemia. PAST SURGICAL HISTORY: Bilateral cataract surgery, status post cholecystectomy. Bilateral knee surgery. Aortic stents x3. ALLERGIES: NKDA. MEDICATIONS: Current medications were reviewed. FAMILY HISTORY: Noncontributory. SOCIAL HISTORY: The patient lives at home, former smoker. REVIEW OF SYSTEMS: Denies headache or dizziness. History of twitching of right eye. Difficulty moving right arm as noted. Right eye symptoms have resolved. The patient's symptoms have resolved as per patient. Right arm strength is at baseline. Denies chest pain, increased shortness of breath or cough. Denies abdominal pain, nausea or vomiting. Denies constipation or diarrhea. Denies urinary complaints. PHYSICAL EXAMINATION: An elderly male sitting comfortably in bed, not in acute distress. VITAL SIGNS: Blood pressure 130/79, heart rate 70, respiratory rate 20, temperature 97F. Oxygen saturation 97%. HEENT: Normocephalic. No facial asymmetry noted. NECK: No JVD present. CVS: S1, S2 present. RESPIRATORY: Breath sounds are bilaterally diminished. ABDOMEN: Obese, soft, nontender. NEURO: He is alert, awake, answers simple questions appropriately, follows simple commands appropriately. Motor strength in right upper extremity revealed 4+ over 5 motor strength. Left upper extremity and bilateral lower extremity strength is 5/5. EXTREMITIES: No edema on bilateral lower extremities. LABORATORY DATA AND TESTS: Labs from today showed CBC with white blood cell 4.9, hemoglobin 7.2, hematocrit 27, PLT 170,000. BMP shows BUN 24, creatinine 1.54. Troponin less than 0.012 x2. UA essentially negative. Head CT showed no acute intracranial findings per preliminary report. EKG shows sinus bradycardia at 55 beats/minute. ASSESSMENT: A 78 year old man with impression: 1) Transient ischemic attack. 2) Questionable seizure. 3) History of prior CVA with right upper extremity weakness. 4) Hypertension/congestive heart failure. 5) Chronic anemia. 6) Chronic renal insufficiency. 7) Chronic obstructive pulmonary disease. 8) Hyperlipidemia. 9) Prior history of GI bleeding. PLAN: 1) The patient is admitted for further monitoring and management. Will continue to monitor hemodynamic and neurologic status. As noted above the patient's symptoms were felt to be more likely due to seizures per tele-neurologist. Additional work up with EEG will be done as outpatient as per neurology recommendation. In the meantime the patient will be started on Keppra per neurology recommendation. 2) Carotid Doppler scheduled for tomorrow. 3) Will obtain baseline TSH and magnesium. 4) Fall precautions. 5) PT, OT and speech evaluation. The plan was discussed with the patient. He seems to be in understanding and agreement. No family members were available. Plan was discussed with the patient's nurse, Alexia.
[2019-01-11] MEDS ORDERED: LASIX 20 MG PO SCH (10:00)
[2019-01-11] MEDS ORDERED: GLYBURIDE 2.5 MG PO SCH (10:00)
[2019-01-11] MEDS ORDERED: Klor Con 10 MEQ PO SCH (10:00)
[2019-01-11] MEDS ORDERED: Protonix 40MG Tablet PO SCH (10:00)
[2019-01-11] MEDS ORDERED: Catapres-TTS 1 PATCH TD SCH (10:00)
[2019-01-11] MEDS ORDERED: ECOTRIN 81 MG PO SCH (10:00)
--- NOTE | 2019-01-11 10:27 | XRAY ---
Indication: TIA. Seizures. Two-dimensional sonogram and color Doppler imaging of the carotid arteries of the neck performed. Comparison: None Examination of the right carotid circulation demonstrates minimal eccentric calcified plaquing in the common carotid artery. At the level of the bulb, there is mild heterogeneous plaquing slightly extending into the origin of the internal and external carotid arteries. Distal internal carotid artery is tortuous. PSV of the CCA is 58 cm/s. PSV of the ICA is 66 cm/s. ICA/CCA ratio is 1.1. Normal antegrade vertebral artery flow. Examination of the left carotid circulation demonstrates mild calcified plaquing at the level of the bulb extending into the origin of the external carotid and lesser degree internal carotid arteries. PSV of the CCA is 47 cm/s. PSV of the ICA is 77 cm/s. ICA/CCA ratio is 1.6. Normal antegrade vertebral artery flow. Impression: Minimal/mild plaquing bilaterally as detailed. Velocity measurements and ratios are however negative for hemodynamically significant flow-limiting stenosis.
[2019-01-11 16:11] LABS: ABO TYPING A; RH TYPING POSITIVE
[2019-01-11 16:24] LABS: Antibody Screen POSITIVE (NEGATIVE)
[2019-01-11 17:13] VITALS: BP 193/86; PULSE 54; O2SAT 95
== END 2019-01-11 17:25 | disposition home or self-care (01) ==
LOC: ED 11:03 → MED SURG 14:40
PROVIDERS: ADMIT General Practice; ATTEND General Practice
DX: G45.9 Transient cerebral ischemic attack, unspecified (principal); I69.851 Hemiplegia and hemiparesis following other cerebrovascular disease affecting right dominant side; I11.0 Hypertensive heart disease with heart failure; I50.9 Heart failure, unspecified; D64.9 Anemia, unspecified; N18.9 Chronic kidney disease, unspecified; E78.5 Hyperlipidemia, unspecified; J44.9 Chronic obstructive pulmonary disease, unspecified; E11.9 Type 2 diabetes mellitus without complications; Z79.82 Long term (current) use of aspirin; Z79.899 Other long term (current) drug therapy; Z79.84 Long term (current) use of oral hypoglycemic drugs
CPT/HCPCS: 36000; 36415; 70460; 80048; 81001; 82962; 83735; 84443; 84484; 85025; 86850; 86900; 86901; 86922; 93005; 93880; 99285; G0378; P9016; Q3014; 86870; A9270-GY

== ENCOUNTER 2019-03-03 23:13 | Observation (INO) | payer MEDICARE ==
[2019-03-03] MEDS ORDERED: Zofran 4 MG/2 ML VIAL IV ONE (23:38)
--- NOTE | 2019-03-03 23:44 | ERPHSYRPT ---
- History of Present Illness Time Seen by Provider: 03/03/19 23:33 Historian: patient Exam Limitations: no limitations Patient Subjective Stated Complaint: PT C/O NAUSEA AND VOMITING SINCE "THIS AFTERNOON". PT STATES HE IS UNSURE HOW MANY TIMES HE IS VOMITING. PT REPORTS NORMAL BM TODAY, DENIES FEVER. C/O DECREASED APPETITE X 2-3 DAYS. Triage Nursing Assessment: PALE/WARM/DRY, RESP EASY, A&OX4, SLOW BUT STEADY GAIT WITH ASSIST OF WALKER FROM HOME. Physician History: 78-year-old white male with history of CVA, high blood pressure, congestive heart failure, anemia, GI bleed, hypercholesterolemia, peripheral vascular disease, COPD, diabetes, renal disease. Patient arrives with complaint of lower abdominal pain described as cramping dry heaves symptoms since 6:00 no shortness of breath no chest pain., No fevers. 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 Worsens With: analgesics , antacids, breathing, coughing, defecating, eating, exercise, lying down, movement, palpation, rest, urinating, vomiting, position, walking Associated Symptoms: nausea, vomiting, No back, No chest pain, No diaphoresis, No diarrhea, No fever/chills, No fatigue, No headache, No heartburn, No loss of appetite, No neck pain, No rash, No shortness of breath, No syncope, No testicular pain, No weakness Previous symptoms: no prior history Allergies/Adverse Reactions: No Known Drug Allergies Allergy (Verified 03/03/19 23:19) Home Medications: Carvedilol 12.5 mg [Coreg 12.5 mg] 12.5 mg PO BID 05/01/15 [History] Atorvastatin Calcium [Lipitor] 10 mg PO HS 04/24/17 [History] PANTOPRAZOLE 40 mg Tablet [Protonix 40MG Tablet] 40 mg PO DAILY 04/24/17 [ History] Aspirin 81 mg PO HS 05/21/18 [History] Furosemide 20 mg [Lasix 20 mg] 10 mg PO DAILY 10/29/18 [History] Clonidine [Catapres-Tts 1] 0.1 mg TD WEEKLY 01/02/19 [History] HydrALAzine HCL 25 MG TAB [Apresoline 25 MG TABLET] 25 mg PO QID 01/02/19 [History] Metformin HCl [Glucophage] 1,000 mg PO BID 01/02/19 [History] Potassium Chloride 10 Meq Tab* [Klor Con 10 MEQ] 10 meq PO DAILY 01/02/19 [ History] glyBURIDE [Glyburide] 2.5 mg PO DAILY 01/02/19 [History] Hx Tetanus, Diphtheria Vaccination/Date Given: Yes Hx Influenza Vaccination/Date Given: Yes Hx Pneumococcal Vaccination/Date Given: Yes Immunizations Up to Date: Yes - Review of Systems Constitutional: No Fever, No Chills Eyes: No Symptoms Ears, Nose, & Throat: No Symptoms Respiratory: No Cough, No Dyspnea Cardiac: No Chest Pain, No Edema, No Syncope Abdominal/Gastrointestinal: Abdominal Pain (lower abdominal pain), Nausea, Vomiting, No Diarrhea, No Constipation, No Hematemesis, No Hematochezia, No Melena, No Dysphagia, No Appetite Changes Genitourinary Symptoms: No Dysuria Musculoskeletal: No Back Pain, No Neck Pain Skin: No Rash Neurological: No Dizziness, No Focal Weakness, No Sensory Changes Psychological: No Symptoms Endocrine: No Symptoms All Other Systems: Reviewed and Negative - Past Medical History Pertinent Past Medical History: Yes Neurological History: Stroke ENT History: Cataracts, Other Cardiac History: Arrhythmia, High Cholesterol, Hypertension, Peripheral Vascular Disease Respiratory History: COPD Endocrine Medical History: Diabetes Type II Musculoskeletal History: No Pertinent History GI Medical History: Hemorrhoids, Other History: Renal Disease Psycho-Social History: No Pertinent History Male Reproductive Disorders: Prostate Problems Other Medical History: cellulitis. kadeem cataracts. no polyps , but a cluster of veins, enlarge prostate.shingles. drmatitis. Myositis. - Past Surgical History Past Surgical History: Yes Neuro Surgical History: No Pertinent History Cardiac: Other Respiratory: No Pertinent History Gastrointestinal: No Pertinent History Genitourinary: No Pertinent History Musculoskeletal: Orthopedic Surgery Male Surgical History: No Pertinent History Other Surgical History: kadeem knee surgery. colonoscopy recent. 3 aortic stents - Social History Smoking Status: Former smoker How long have you smoked: 40 Exposure to second hand smoke: No Drug Use: none Patient Lives Alone: No - Nursing Vital Signs Nursing Vital Signs: Initial Vital Signs Temperature 98.0 F 03/03/19 23:19 Pulse Rate 69 03/03/19 23:19 Respiratory Rate 16 03/03/19 23:19 Blood Pressure 171/94 03/03/19 23:19 O2 Sat by Pulse Oximetry 97 03/03/19 23:19 Pain Scale Pain Intensity 10 - Physical Exam General Appearance: mild distress, alert Eye Exam: PERRL/EOMI, eyes nml inspection Ears, Nose, Throat Exam: normal ENT inspection, pharynx normal, moist mucous membranes Neck Exam: normal inspection, non-tender, supple, full range of motion Respiratory Exam: normal breath sounds, lungs clear, No respiratory distress Cardiovascular Exam: regular rate/rhythm, normal heart sounds, capillary refill <2 sec Gastrointestinal/Abdomen Exam: soft, normal bowel sounds, tenderness ( suprapubic tenderness), distention (moderately distended) Back Exam: normal inspection, normal range of motion, No CVA tenderness, No vertebral tenderness Extremity Exam: normal inspection, normal range of motion, pelvis stable Neurologic Exam: alert, oriented x 3, cooperative, 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 Compared to January 10, 2019) - Radiology Exams Chest X-ray Interpretation: Interpreted by me (no acute disease process noted) Ordered Tests: Active Orders 24 hr Category Date Time Status EKG-ER Only STAT Care 03/03/19 23:38 Active IV Insertion STAT Care 03/03/19 23:38 Active ABDOMEN AND PELVIS W/0 CONTRAS [CT] Stat Exams 03/04/19 00:36 Taken CHEST 1 VIEW (PORTABLE) Stat Exams 03/04/19 00:04 Taken AMYLASE Stat Lab 03/03/19 23:35 Completed BLOOD CULTURE Stat Lab 03/04/19 00:30 Ordered CBC W DIFF Stat Lab 03/03/19 23:35 Completed CMP Stat Lab 03/03/19 23:35 Completed LIPASE Stat Lab 03/03/19 23:35 Completed Lactic Acid Stat Lab 03/03/19 23:38 Completed Lactic Acid Stat Lab 03/04/19 01:47 Ordered TROPONIN Q3H Lab 03/03/19 23:35 Completed TROPONIN Q3H Lab 03/04/19 02:45 Ordered TROPONIN Q3H Lab 03/04/19 05:45 Ordered TROPONIN Q3H Lab 03/04/19 08:45 Ordered TROPONIN Q3H Lab 03/04/19 11:45 Ordered UA W/RFX UR CULTURE Stat Lab 03/04/19 00:08 Completed Medication Summary Generic Name Dose Route Start Last Admin Trade Name Freq PRN Reason Stop Dose Admin Sodium Chloride 1,000 mls @ 100 mls/hr 03/03/19 23:45 03/04/19 00:41 Sodium Chloride 0.9% 1000 Ml IV 04/02/19 23:44 100 mls/hr .Q10H CRISTINO Administration Discontinued Medications Generic Name Dose Route Start Last Admin Trade Name Freq PRN Reason Stop Dose Admin Morphine Sulfate 4 mg 03/04/19 00:29 03/04/19 00:41 Morphine Sulfate 4 Mg Inj IV 03/04/19 00:30 4 mg STAT ONE Administration Morphine Sulfate Confirm 03/04/19 00:30 Morphine Sulfate 4 Mg Inj Administered 03/04/19 00:31 Dose 4 mg .ROUTE .STK-MED ONE Ondansetron HCl 4 mg 03/03/19 23:38 03/04/19 00:41 Zofran 4 Mg/2 Ml Vial IV 03/03/19 23:39 4 mg STAT ONE Administration Ondansetron HCl Confirm 03/04/19 00:30 Zofran 4 Mg/2 Ml Vial Administered 03/04/19 00:31 Dose 4 mg .ROUTE .STK-MED ONE Promethazine HCl 25 mg 03/03/19 23:57 03/03/19 23:59 Phenergan 25 Mg Inj IM 03/03/19 23:58 25 mg STAT ONE Administration Promethazine HCl Confirm 03/03/19 23:59 Phenergan 25 Mg Inj Administered 03/04/19 00:00 Dose 25 mg .ROUTE .STK-MED ONE Lab/Rad Data: Laboratory Result Diagrams 03/03/19 23:35 03/03/19 23:35 Laboratory Results 03/04/19 03/03/19 03/03/19 Range/Units 00:08 23:38 23:35 WBC (4.0-10.5) K/mm3 RBC (4.1-5.6) M/mm3 Hgb (12.5-18.0) gm/dl Hct (42-50) % MCV (78-100) fl MCH (26-32) pg MCHC (32-36) g/dl RDW (11.5-14.0) % Plt Count (150-450) K/mm3 MPV (6-9.5) fl Gran % (36.0-66.0) % Eos # (Auto) (0-0.5) Absolute Lymphs (auto) (1.0-4.6) Absolute Monos (auto) (0.0-1.3) Lymphocytes % (24.0-44.0) % Monocytes % (0.0-12.0) % Eosinophils % (0.00-5.0) % Basophils % (0.0-0.4) % Absolute Granulocytes (1.4-6.9) Basophils # (0-0.4) Sodium (137-145) mmol/L Potassium (3.5-5.1) mmol/L Chloride (98-107) mmol/L Carbon Dioxide (22-30) mmol/L Anion Gap (5-15) MEQ/L BUN (9-20) mg/dL Creatinine (0.66-1.25) mg/dL Estimated GFR ML/MIN Glucose (74-106) mg/dL Lactic Acid 2.3 H (0.4-2.0) Calcium (8.4-10.2) mg/dL Total Bilirubin (0.2-1.3) mg/dL AST (17-59) U/L ALT (0-50) U/L Alkaline Phosphatase (38-126) U/L Troponin I < 0.012 (0.000-0.034) ng/mL Serum Total Protein (6.3-8.2) g/dL Albumin (3.5-5.0) g/dL Amylase (30-110) U/L Lipase (23-300) U/L Urine Color YELLOW (YELLOW) Urine Appearance CLEAR (CLEAR) Urine pH 6.0 (5-6) Ur Specific [place] 1.015 (1.005-1.025) Urine Protein 100 (Negative) Urine Ketones NEGATIVE (NEGATIVE) Urine Blood NEGATIVE (0-5) Crescencio/ul Urine Nitrite NEGATIVE (NEGATIVE) Urine Bilirubin NEGATIVE (NEGATIVE) Urine Urobilinogen NEGATIVE (0-1) mg/dL Ur Leukocyte Esterase NEGATIVE (NEGATIVE) Urine WBC (Auto) NONE (0-5) /HPF Urine RBC (Auto) NONE (0-2) /HPF U Epithel Cells (Auto) NONE (FEW) /HPF Urine Bacteria (Auto) NONE (NEGATIVE) /HPF Urine Culture Reflexed NO (NO) Urine Glucose NEGATIVE (NEGATIVE) mg/dL 03/03/19 03/03/19 Range/Units 23:35 23:35 WBC 9.1 (4.0-10.5) K/mm3 RBC 3.39 L (4.1-5.6) M/mm3 Hgb 7.5 L (12.5-18.0) gm/dl Hct 25.1 L (42-50) % MCV 74.0 L (78-100) fl MCH 22.1 L (26-32) pg MCHC 29.9 L (32-36) g/dl RDW 19.6 H (11.5-14.0) % Plt Count 218 (150-450) K/mm3 MPV 11.5 H (6-9.5) fl Gran % 79.8 H (36.0-66.0) % Eos # (Auto) 0.28 (0-0.5) Absolute Lymphs (auto) 0.74 L (1.0-4.6) Absolute Monos (auto) 0.80 (0.0-1.3) Lymphocytes % 8.1 L (24.0-44.0) % Monocytes % 8.8 (0.0-12.0) % Eosinophils % 3.1 (0.00-5.0) % Basophils % 0.2 (0.0-0.4) % Absolute Granulocytes 7.30 H (1.4-6.9) Basophils # 0.02 (0-0.4) Sodium 142 (137-145) mmol/L Potassium 5.1 (3.5-5.1) mmol/L Chloride 107 (98-107) mmol/L Carbon Dioxide 24 (22-30) mmol/L Anion Gap 16.6 H (5-15) MEQ/L BUN 31 H (9-20) mg/dL Creatinine 1.56 H (0.66-1.25) mg/dL Estimated GFR 46.0 ML/MIN Glucose 136 H (74-106) mg/dL Lactic Acid (0.4-2.0) Calcium 9.6 (8.4-10.2) mg/dL Total Bilirubin 0.70 (0.2-1.3) mg/dL AST 22 (17-59) U/L ALT 11 (0-50) U/L Alkaline Phosphatase 77 (38-126) U/L Troponin I (0.000-0.034) ng/mL Serum Total Protein 7.5 (6.3-8.2) g/dL Albumin 4.2 (3.5-5.0) g/dL Amylase 81 (30-110) U/L Lipase 256 (23-300) U/L Urine Color (YELLOW) Urine Appearance (CLEAR) Urine pH (5-6) Ur Specific [place] (1.005-1.025) Urine Protein (Negative) Urine Ketones (NEGATIVE) Urine Blood (0-5) Crescencio/ul Urine Nitrite (NEGATIVE) Urine Bilirubin (NEGATIVE) Urine Urobilinogen (0-1) mg/dL Ur Leukocyte Esterase (NEGATIVE) Urine WBC (Auto) (0-5) /HPF Urine RBC (Auto) (0-2) /HPF U Epithel Cells (Auto) (FEW) /HPF Urine Bacteria (Auto) (NEGATIVE) /HPF Urine Culture Reflexed (NO) Urine Glucose (NEGATIVE) mg/dL - Progress Progress: improved Progress Note: 03/04/19 00:31 78-year-old white male arrives with complaint of lower abdominal pain and nausea and retching symptoms since this afternoon Patient was mildly distended abdomen tenderness in the suprapubic region Patient does have a lactate of 2.3 he does not appear to be septic he has good pulse oximetry of 90% on room air good perfusion to all extremities pulses equal and symmetrical 2 over 4.patient is afebrile. Will give patient normal saline and was started at 100 mL per hour will be turned up to 150 an hour patient does have a history of congestive heart failure in the past so will need to be somewhat careful chest x-ray will be obtained. The patient was not very cooperative with obtaining IVs for the nurses but one has been secured. Morphine 4 mg IV Phenergan 12.5 mg IM and Zofran 4 mg IV have been ordered 03/04/19 00:34 Patient's CBC, CMP, troponin, amylase, lipase are available Patient's white blood cell 9.1 hemoglobin 7.5 hematocrit 25.1 platelets 218 patient has run a hemoglobin of approximately where it is now this appears to be chronic. Patient's chemistry sodium 142 potassium 5.1 chloride 107 bicarbonate 24 BUN 31 creatinine 1.56 glucose 136. Patient's troponin less than 0.012 Amylase 81 lipase 25. Will go ahead and obtain CT abdomen without contrast due to the patient's abdominal pain urine has been obtained. 03/04/19 00:46 03/04/19 02:31 CT of the abdomen and pelvis: Impression 1. No evidence of acute intra- abdominal or pelvic pathology 2. Additional nonemergent findings Impression 1 abdominal pain 2. Nausea vomiting 3. Chronic anemia 4. Chronic renal failure Plan I have discussed the case with Dr. Lau patient will be placed on observation, continue IV normal saline turn rate down to 80 mL per hour due to patient's history of congestive heart failure. We'll continue IV morphine IV Zofran. Although patient's hemoglobin is apparently stable at 7.5 Will type and screen. - Departure Departure Disposition: Home Clinical Impression: Renal insufficiency Abdominal pain Qualifiers: Abdominal location: lower abdomen, unspecified Qualified Code(s): R10.30 - Lower abdominal pain, unspecified Vomiting Qualifiers: Vomiting type: unspecified Vomiting Intractability: non-intractable Nausea presence: with nausea Qualified Code(s): R11.2 - Nausea with vomiting, unspecified Anemia Qualifiers: Anemia type: unspecified type Qualified Code(s): D64.9 - Anemia, unspecified Condition: Fair Critical Care Time: No Referrals: BRIDGET LAU MD [Primary Care Provider] -
[2019-03-03] MEDS ORDERED: Sodium Chloride 0.9% 1000 ML 1,000 ML IV SCH (23:45)
[2019-03-03 23:55] LABS: BASOPHIL % 0.2 % (0.0-0.4); Basophil (Absolute #) 0.02 (0-0.4); Eosinophil % 3.1 % (0.00-5.0); Eosinophil (Absolute #) 0.28 (0-0.5); Granulocytes % 79.8 % (36.0-66.0); Hematocrit 25.1 % (42-50); Hemoglobin 7.5 gm/dl (12.5-18.0); Lymphocyte (Absolute #) 0.74 (1.0-4.6); Lymphocytes % 8.1 % (24.0-44.0); Mean Corpuscular Hemoglobin 22.1 pg (26-32); Mean Corpuscular Hgb Concent. 29.9 g/dl (32-36); Mean Platelet Volume 11.5 fl (6-9.5); Monocytes % 8.8 % (0.0-12.0); Platelet Count 218 K/mm3 (150-450); Red Blood Count 3.39 M/mm3 (4.1-5.6); Red Cell Distribution Width 19.6 % (11.5-14.0); White Blood Count 9.1 K/mm3 (4.0-10.5)
[2019-03-03] MEDS ORDERED: Phenergan 25 MG INJ IM ONE (23:57)
[2019-03-03] MEDS ORDERED: Phenergan 25 MG INJ ONE (23:59)
[2019-03-04 00:01] LABS: Lactic Acid 2.3 (0.4-2.0)
[2019-03-04 00:08] LABS: ALBUMIN 4.2 g/dL (3.5-5.0); ANION GAP 16.6 MEQ/L (5-15); BILIRUBIN,TOTAL 0.7 mg/dL (0.2-1.3); Calcium 9.6 mg/dL (8.4-10.2); Creatinine 1 1.56 mg/dL (0.66-1.25); Potassium 5.1 mmol/L (3.5-5.1); Total Protein 7.5 g/dL (6.3-8.2)
[2019-03-04] MEDS ORDERED: MORPHINE SULFATE 4 MG INJ IV ONE (00:29)
[2019-03-04] MEDS ORDERED: MORPHINE SULFATE 4 MG INJ ONE (00:30)
[2019-03-04] MEDS ORDERED: Zofran 4 MG/2 ML VIAL ONE (00:30)
[2019-03-04] MEDS ORDERED: Sodium Chloride 0.9% 1000 ML 1,000 ML ONE (00:30)
[2019-03-04 01:06] LABS: Appearance CLEAR (CLEAR); Bilirubin NEGATIVE (NEGATIVE); Blood NEGATIVE Ery/ul (0-5); Glucose NEGATIVE (NEGATIVE); Ketones NEGATIVE (NEGATIVE); Leukocyte Esterase NEGATIVE (NEGATIVE); Nitrite NEGATIVE (NEGATIVE); Protein,Urine Dip 100 (Negative); Specific Gravity 1.015 (1.005-1.025); Urobilinogen NEGATIVE mg/dL (0-1)
[2019-03-04] MEDS ORDERED: MORPHINE SULFATE 2 MG INJ IV ONE (02:34)
[2019-03-04] MEDS ORDERED: MORPHINE SULFATE 2 MG INJ ONE (02:36)
[2019-03-04] MEDS ORDERED: NovoLOG Insulin SQ PRN (03:19)
[2019-03-04] MEDS ORDERED: Zofran 4 MG/2 ML VIAL IV PRN (03:19)
[2019-03-04] MEDS ORDERED: DUONEB 0.5-3 MG/3 ml Neb IH PRN (03:19)
[2019-03-04] MEDS ORDERED: MORPHINE SULFATE 4 MG INJ IV PRN (03:19)
[2019-03-04 03:40] LABS: Slide Review 1 YES
[2019-03-04 05:13] LABS: BASOPHIL % 0.1 % (0.0-0.4); Basophil (Absolute #) 0.01 (0-0.4); Eosinophil % 1.1 % (0.00-5.0); Eosinophil (Absolute #) 0.08 (0-0.5); Granulocyte Absolute (ANC) 6.24 (1.4-6.9); Granulocytes % 84.7 % (36.0-66.0); Hematocrit 24.7 % (42-50); Hemoglobin 7.2 gm/dl (12.5-18.0); Lymphocyte (Absolute #) 0.56 (1.0-4.6); Lymphocytes % 7.6 % (24.0-44.0); Mean Cell Volume 75.3 fl (78-100); Mean Corpuscular Hgb Concent. 29.1 g/dl (32-36); Mean Platelet Volume 11.2 fl (6-9.5); Monocyte (Absolute #) 0.48 (0.0-1.3); Monocytes % 6.5 % (0.0-12.0); Platelet Count 192 K/mm3 (150-450); Red Blood Count 3.28 M/mm3 (4.1-5.6); Red Cell Distribution Width 19.3 % (11.5-14.0); White Blood Count 7.4 K/mm3 (4.0-10.5)
[2019-03-04 05:23] LABS: Mean Corpuscular Hemoglobin 21.9 pg (26-32)
[2019-03-04 05:30] LABS: ALBUMIN 3.8 g/dL (3.5-5.0); ANION GAP 16.5 MEQ/L (5-15); BILIRUBIN,TOTAL 0.5 mg/dL (0.2-1.3); Calcium 9.3 mg/dL (8.4-10.2); Creatinine 1 1.57 mg/dL (0.66-1.25); Potassium 5.5 mmol/L (3.5-5.1)
[2019-03-04 05:38] LABS: ABO TYPING A; Antibody Screen NEGATIVE (NEGATIVE); RH TYPING POSITIVE
[2019-03-04 06:12] LABS: Slide Review 1 YES
--- NOTE | 2019-03-04 09:04 | XRAY ---
Indication: Abdomen pain. Vomiting. Multiple contiguous axial images obtained through the abdomen and pelvis without contrast as ordered. Comparison: February 15, 2011. Lung bases now demonstrates atelectasis/scarring and cardiomegaly. No focal infiltrate or effusion. Stable small hiatal hernia. Noncontrasted stomach and bowel loops appear nonobstructed. Normal appendix. Again mild scattered colonic diverticulosis without diverticulitis. No free fluid/air. Stable bilateral polycystic kidneys, 1 cm left adrenal adenoma, and enlarged prostate gland. Remaining liver, gallbladder, pancreas, spleen, right adrenal gland, ureters, and bladder appear unremarkable for noncontrast exam. Stable scattered arteriosclerotic disease with interval enlarging fusiform distal AAA measuring 5.5 x 6.5 cm. Stable aortobiiliac stent graft. Osseous structures intact again with moderate degenerative changes throughout the spine. Impression: 1. Again diffuse scattered arteriosclerotic disease with enlarging distal AAA. Stable aortobiiliac stent graft. Lack of IV contrast precludes evaluation of stent graft patency. 2. New cardiomegaly. 3. Stable hiatal hernia, polycystic kidneys, left adrenal adenoma, and enlarged prostate gland. Comment: Preliminary interpretation was made by [facility]. No critical discrepancy. CT DI 23.33
--- NOTE | 2019-03-04 09:14 | XRAY ---
Indication: Vomiting. Comparison: March 16, 2007. Portable apical lordotic chest demonstrates worsening cardiomegaly. Vascularity normal. No focal infiltrate, consolidation, or large effusion. Bony thorax intact again with mild osteopenia and degenerative changes. Impression: Worsening cardiomegaly. Negative for acute pneumonic process or CHF.
[2019-03-04] MEDS ORDERED: Catapres-TTS 1 PATCH TD SCH (10:00)
[2019-03-04] MEDS: COREG 12.5 MG PO SCH ×2 (11:12→21:43)
[2019-03-04] MEDS: Apresoline 25 MG TABLET PO SCH ×2 (11:13→21:43)
[2019-03-04] MEDS: Protonix 40MG Tablet PO SCH (11:13)
[2019-03-04] MEDS: Glucophage 500 MG PO SCH ×2 (11:14→19:52)
[2019-03-04] MEDS: AMARYL 4 MG PO SCH (11:14)
[2019-03-04] MEDS: LASIX 20 MG PO SCH (11:14)
[2019-03-04] MEDS: Micronase 5 MG PO SCH (11:15)
--- NOTE | 2019-03-04 12:37 | PCM.HP ---
History of Present Illness - Chief Complaint Chief Complaint: Abdominal pain for 1 day History of Present Illness: is a 78-year-old white male with history of CVA, high blood pressure, congestive heart failure, anemia, GI bleed, hypercholesterolemia, peripheral vascular disease, COPD, diabetes, renal disease. Patient arrives with complaint of lower abdominal pain described as cramping dry heaves symptoms since 6:00 no shortness of breath no chest pain., No fevers. 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, enlarged prostate, shingles, dermatitis , myositis Past surgical history includes bilateral knee surgery, colonoscopy, ankle, stents 3 - Review of Systems Constitutional: No Fever, No Chills Eyes: No Symptoms Ears, Nose, & Throat: No Symptoms Respiratory: No Cough, No Short Of Breath Cardiac: No Chest Pain, No Edema, No Syncope Abdominal/Gastrointestinal: Abdominal Pain, No Nausea, No Vomiting, No Diarrhea Genitourinary Symptoms: No Dysuria Musculoskeletal: No Back Pain, No Neck Pain Skin: No Rash Neurological: No Dizziness, No Focal Weakness, No Sensory Changes Psychological: No Symptoms Endocrine: No Symptoms Hematologic/Lymphatic: No Symptoms Immunological/Allergic: No Symptoms Medications & Allergies Home Medications: Home Medication List Carvedilol 12.5 mg [Coreg 12.5 mg] 12.5 mg PO BID 05/01/15 [History Confirmed 03/04/19] Atorvastatin Calcium [Lipitor] 10 mg PO HS 04/24/17 [History Confirmed 03/04/19] PANTOPRAZOLE 40 mg Tablet [Protonix 40MG Tablet] 40 mg PO DAILY 04/24/17 [ History Confirmed 03/04/19] Aspirin 81 mg PO HS 05/21/18 [History Confirmed 03/04/19] Furosemide 20 mg [Lasix 20 mg] 10 mg PO DAILY 10/29/18 [History Confirmed 03/04/19] Clonidine [Catapres-Tts 1] 0.1 mg TD WEEKLY 01/02/19 [History Confirmed 03/04/19 ] HydrALAzine HCL 25 MG TAB [Apresoline 25 MG TABLET] 25 mg PO QID 01/02/19 [History Confirmed 03/04/19] Metformin HCl [Glucophage] 1,000 mg PO BID 01/02/19 [History Confirmed 03/04/19] Potassium Chloride 10 Meq Tab* [Klor Con 10 MEQ] 10 meq PO DAILY 01/02/19 [ History Confirmed 03/04/19] glyBURIDE [Glyburide] 2.5 mg PO DAILY 01/02/19 [History Confirmed 03/04/19] Glimepiride 4 mg [Amaryl 4 mg] 4 mg PO DAILY 03/04/19 [History Confirmed 03/04/19] Allergies/Adverse Reactions: Allergies Allergy/AdvReac Type Severity Reaction Status Date / Time No Known Drug Allergies Allergy Verified 03/03/19 23:19 - Past Medical History Past Medical History: Yes Neurological History: Stroke ENT History: Cataracts, Other Cardiac History: Arrhythmia, High Cholesterol, Hypertension, Peripheral Vascular Disease Respiratory History: COPD Endocrine Medical History: Diabetes Type II Musculoskelatal History: No Pertinent History GI Medical History: Hemorrhoids, Other History: Renal Disease Pyscho-Social History: No Pertinent History Male Reproductive Disorders: Prostate Problems Comment: cellulitis. kadeem cataracts. no polyps , but a cluster of veins, enlarge prostate.shingles. dermatitis. Myositis. - Past Surgical History Past Surgical History: Yes Neuro Surgical History: No Pertinent History Cardiac History: Other Respiratory Surgery: No Pertinent History GI Surgical History: No Pertinent History Genitourinary Surgical Hx: No Pertinent History Musculskeletal Surgical Hx: Orthopedic Surgery Male Surgical History: No Pertinent History Other Surgical History: kadeem knee surgery. colonoscopy. 3 aortic stents - Social History Smoking Status: Never smoker How long have you smoked: 40 Exposure to second hand smoke: No Alcohol: None Drug Use: none - Physical Exam Vital Signs: Vital Signs - 24 hr Temp Pulse Resp BP Pulse Ox 03/04/19 12:24 98.2 F 81 20 137/73 94 L 03/04/19 07:25 97.8 F 75 20 162/84 95 03/04/19 06:40 94 L 03/04/19 04:40 67 18 97 03/04/19 03:19 98.4 F 70 18 191/98 98 03/04/19 02:44 79 18 188/96 97 03/04/19 02:34 97 03/03/19 23:19 98.0 F 69 16 171/94 97 Oxygen-Last 24 hours O2 Percentage 2 Liters = 28% O2 Percentage 2 Liters = 28% O2 Percentage 2 Liters = 28% Oxygen Flowrate (L/min)-RT 2 General Appearance: no apparent distress, alert Neurologic Exam: alert, oriented x 3, cooperative, normal mood/affect, nml cerebellar function, nml station & gait, sensation nml, No motor deficits Eye Exam: PERRL/EOMI, eyes nml inspection Ears, Nose, Throat Exam: normal ENT inspection, TMs normal, pharynx normal, moist mucous membranes Neck Exam: normal inspection, non-tender, supple, full range of motion Respiratory Exam: normal breath sounds, lungs clear, No respiratory distress Cardiovascular Exam: regular rate/rhythm, normal heart sounds, normal peripheral pulses Gastrointestinal/Abdomen Exam: soft, normal bowel sounds, No tenderness, No mass Back Exam: normal inspection, normal range of motion, No CVA tenderness, No vertebral tenderness Extremity Exam: normal inspection, normal range of motion, pelvis stable Skin Exam: normal color, warm, dry, No rash Lymphatic Exam: No adenopathy Results - Labs Lab/Micro Results: Accuchecks Date 03/04/19 Date 03/04/19 Time 11:30 Accucheck Value: 155 Accucheck Value: 141 Lab Results-Last 24 Hours 03/03/19 03/03/19 03/03/19 Range/Units 23:35 23:35 23:35 WBC 9.1 (4.0-10.5) K/mm3 RBC 3.39 L (4.1-5.6) M/mm3 Hgb 7.5 L (12.5-18.0) gm/dl Hct 25.1 L (42-50) % MCV 74.0 L (78-100) fl MCH 22.1 L (26-32) pg MCHC 29.9 L (32-36) g/dl RDW 19.6 H (11.5-14.0) % Plt Count 218 (150-450) K/mm3 MPV 11.5 H (6-9.5) fl Gran % 79.8 H (36.0-66.0) % Eos # (Auto) 0.28 (0-0.5) Absolute Lymphs (auto) 0.74 L (1.0-4.6) Absolute Monos (auto) 0.80 (0.0-1.3) Lymphocytes % 8.1 L (24.0-44.0) % Monocytes % 8.8 (0.0-12.0) % Eosinophils % 3.1 (0.00-5.0) % Basophils % 0.2 (0.0-0.4) % Absolute Granulocytes 7.30 H (1.4-6.9) Basophils # 0.02 (0-0.4) Sodium 142 (137-145) mmol/L Potassium 5.1 (3.5-5.1) mmol/L Chloride 107 (98-107) mmol/L Carbon Dioxide 24 (22-30) mmol/L Anion Gap 16.6 H (5-15) MEQ/L BUN 31 H (9-20) mg/dL Creatinine 1.56 H (0.66-1.25) mg/dL Estimated GFR 46.0 ML/MIN Glucose 136 H (74-106) mg/dL Lactic Acid (0.4-2.0) Calcium 9.6 (8.4-10.2) mg/dL Total Bilirubin 0.70 (0.2-1.3) mg/dL AST 22 (17-59) U/L ALT 11 (0-50) U/L Alkaline Phosphatase 77 (38-126) U/L Troponin I < 0.012 (0.000-0.034) ng/mL Serum Total Protein 7.5 (6.3-8.2) g/dL Albumin 4.2 (3.5-5.0) g/dL Amylase 81 (30-110) U/L Lipase 256 (23-300) U/L Urine Color (YELLOW) Urine Appearance (CLEAR) Urine pH (5-6) Ur Specific [place] (1.005-1.025) Urine Protein (Negative) Urine Ketones (NEGATIVE) Urine Blood (0-5) Crescencio/ul Urine Nitrite (NEGATIVE) Urine Bilirubin (NEGATIVE) Urine Urobilinogen (0-1) mg/dL Ur Leukocyte Esterase (NEGATIVE) Urine WBC (Auto) (0-5) /HPF Urine RBC (Auto) (0-2) /HPF U Epithel Cells (Auto) (FEW) /HPF Urine Bacteria (Auto) (NEGATIVE) /HPF Urine Culture Reflexed (NO) Urine Glucose (NEGATIVE) mg/dL Slides for Path Review YES ABO Group Rh Factor Antibody Screen (NEGATIVE) 03/03/19 03/04/19 03/04/19 Range/Units 23:38 00:08 03:14 WBC (4.0-10.5) K/mm3 RBC (4.1-5.6) M/mm3 Hgb (12.5-18.0) gm/dl Hct (42-50) % MCV (78-100) fl MCH (26-32) pg MCHC (32-36) g/dl RDW (11.5-14.0) % Plt Count (150-450) K/mm3 MPV (6-9.5) fl Gran % (36.0-66.0) % Eos # (Auto) (0-0.5) Absolute Lymphs (auto) (1.0-4.6) Absolute Monos (auto) (0.0-1.3) Lymphocytes % (24.0-44.0) % Monocytes % (0.0-12.0) % Eosinophils % (0.00-5.0) % Basophils % (0.0-0.4) % Absolute Granulocytes (1.4-6.9) Basophils # (0-0.4) Sodium (137-145) mmol/L Potassium (3.5-5.1) mmol/L Chloride (98-107) mmol/L Carbon Dioxide (22-30) mmol/L Anion Gap (5-15) MEQ/L BUN (9-20) mg/dL Creatinine (0.66-1.25) mg/dL Estimated GFR ML/MIN Glucose (74-106) mg/dL Lactic Acid 2.3 H (0.4-2.0) Calcium (8.4-10.2) mg/dL Total Bilirubin (0.2-1.3) mg/dL AST (17-59) U/L ALT (0-50) U/L Alkaline Phosphatase (38-126) U/L Troponin I 0.012 (0.000-0.034) ng/mL Serum Total Protein (6.3-8.2) g/dL Albumin (3.5-5.0) g/dL Amylase (30-110) U/L Lipase (23-300) U/L Urine Color YELLOW (YELLOW) Urine Appearance CLEAR (CLEAR) Urine pH 6.0 (5-6) Ur Specific [place] 1.015 (1.005-1.025) Urine Protein 100 (Negative) Urine Ketones NEGATIVE (NEGATIVE) Urine Blood NEGATIVE (0-5) Crescencio/ul Urine Nitrite NEGATIVE (NEGATIVE) Urine Bilirubin NEGATIVE (NEGATIVE) Urine Urobilinogen NEGATIVE (0-1) mg/dL Ur Leukocyte Esterase NEGATIVE (NEGATIVE) Urine WBC (Auto) NONE (0-5) /HPF Urine RBC (Auto) NONE (0-2) /HPF U Epithel Cells (Auto) NONE (FEW) /HPF Urine Bacteria (Auto) NONE (NEGATIVE) /HPF Urine Culture Reflexed NO (NO) Urine Glucose NEGATIVE (NEGATIVE) mg/dL Slides for Path Review ABO Group Rh Factor Antibody Screen (NEGATIVE) 03/04/19 03/04/19 03/04/19 Range/Units 03:25 04:45 04:45 WBC (4.0-10.5) K/mm3 RBC (4.1-5.6) M/mm3 Hgb (12.5-18.0) gm/dl Hct (42-50) % MCV (78-100) fl MCH (26-32) pg MCHC (32-36) g/dl RDW (11.5-14.0) % Plt Count (150-450) K/mm3 MPV (6-9.5) fl Gran % (36.0-66.0) % Eos # (Auto) (0-0.5) Absolute Lymphs (auto) (1.0-4.6) Absolute Monos (auto) (0.0-1.3) Lymphocytes % (24.0-44.0) % Monocytes % (0.0-12.0) % Eosinophils % (0.00-5.0) % Basophils % (0.0-0.4) % Absolute Granulocytes (1.4-6.9) Basophils # (0-0.4) Sodium (137-145) mmol/L Potassium (3.5-5.1) mmol/L Chloride (98-107) mmol/L Carbon Dioxide (22-30) mmol/L Anion Gap (5-15) MEQ/L BUN (9-20) mg/dL Creatinine (0.66-1.25) mg/dL Estimated GFR ML/MIN Glucose (74-106) mg/dL Lactic Acid 2.0 (0.4-2.0) Calcium (8.4-10.2) mg/dL Total Bilirubin (0.2-1.3) mg/dL AST (17-59) U/L ALT (0-50) U/L Alkaline Phosphatase (38-126) U/L Troponin I < 0.012 (0.000-0.034) ng/mL Serum Total Protein (6.3-8.2) g/dL Albumin (3.5-5.0) g/dL Amylase (30-110) U/L Lipase (23-300) U/L Urine Color (YELLOW) Urine Appearance (CLEAR) Urine pH (5-6) Ur Specific [place] (1.005-1.025) Urine Protein (Negative) Urine Ketones (NEGATIVE) Urine Blood (0-5) Crescencio/ul Urine Nitrite (NEGATIVE) Urine Bilirubin (NEGATIVE) Urine Urobilinogen (0-1) mg/dL Ur Leukocyte Esterase (NEGATIVE) Urine WBC (Auto) (0-5) /HPF Urine RBC (Auto) (0-2) /HPF U Epithel Cells (Auto) (FEW) /HPF Urine Bacteria (Auto) (NEGATIVE) /HPF Urine Culture Reflexed (NO) Urine Glucose (NEGATIVE) mg/dL Slides for Path Review ABO Group A Rh Factor POSITIVE Antibody Screen NEGATIVE (NEGATIVE) 03/04/19 03/04/19 03/04/19 Range/Units 04:45 04:45 09:30 WBC 7.4 (4.0-10.5) K/mm3 RBC 3.28 L (4.1-5.6) M/mm3 Hgb 7.2 L (12.5-18.0) gm/dl Hct 24.7 L (42-50) % MCV 75.3 L (78-100) fl MCH 21.9 L (26-32) pg MCHC 29.1 L (32-36) g/dl RDW 19.3 H (11.5-14.0) % Plt Count 192 (150-450) K/mm3 MPV 11.2 H (6-9.5) fl Gran % 84.7 H (36.0-66.0) % Eos # (Auto) 0.08 (0-0.5) Absolute Lymphs (auto) 0.56 L (1.0-4.6) Absolute Monos (auto) 0.48 (0.0-1.3) Lymphocytes % 7.6 L (24.0-44.0) % Monocytes % 6.5 (0.0-12.0) % Eosinophils % 1.1 (0.00-5.0) % Basophils % 0.1 (0.0-0.4) % Absolute Granulocytes 6.24 (1.4-6.9) Basophils # 0.01 (0-0.4) Sodium 142 (137-145) mmol/L Potassium 5.5 H (3.5-5.1) mmol/L Chloride 106 (98-107) mmol/L Carbon Dioxide 25 (22-30) mmol/L Anion Gap 16.5 H (5-15) MEQ/L BUN 30 H (9-20) mg/dL Creatinine 1.57 H (0.66-1.25) mg/dL Estimated GFR 45.6 ML/MIN Glucose 141 H (74-106) mg/dL Lactic Acid (0.4-2.0) Calcium 9.3 (8.4-10.2) mg/dL Total Bilirubin 0.50 (0.2-1.3) mg/dL AST 13 L (17-59) U/L ALT 11 (0-50) U/L Alkaline Phosphatase 76 (38-126) U/L Troponin I < 0.012 (0.000-0.034) ng/mL Serum Total Protein 7.0 (6.3-8.2) g/dL Albumin 3.8 (3.5-5.0) g/dL Amylase (30-110) U/L Lipase (23-300) U/L Urine Color (YELLOW) Urine Appearance (CLEAR) Urine pH (5-6) Ur Specific [place] (1.005-1.025) Urine Protein (Negative) Urine Ketones (NEGATIVE) Urine Blood (0-5) Crescencio/ul Urine Nitrite (NEGATIVE) Urine Bilirubin (NEGATIVE) Urine Urobilinogen (0-1) mg/dL Ur Leukocyte Esterase (NEGATIVE) Urine WBC (Auto) (0-5) /HPF Urine RBC (Auto) (0-2) /HPF U Epithel Cells (Auto) (FEW) /HPF Urine Bacteria (Auto) (NEGATIVE) /HPF Urine Culture Reflexed (NO) Urine Glucose (NEGATIVE) mg/dL Slides for Path Review YES ABO Group Rh Factor Antibody Screen (NEGATIVE) Microbiology 03/04/19 01:34 Blood Culture Gram Stain - Preliminary Blood Accuchecks Date 03/04/19 Date 03/04/19 Time 11:30 Accucheck Value: 155 Accucheck Value: 141 - Radiology Impressions Radiology Exams & Impressions: Radiology Procedures Category Date Time Status ABDOMEN AND PELVIS W/0 CONTRAS [CT] Stat Exams 03/04/19 00:36 Completed CHEST 1 VIEW (PORTABLE) Stat Exams 03/04/19 00:04 Completed - Other Procedures and Tests Respiratory Therapy 03/04/19 03:19 Oxygen Nasal Cannula 2 lpm 03/04/19 04:39 Respiratory Therapy Assessment DAILY 03/04/19 07:00 Peak Expiratory Flow Rate ONCE Assessment/Plan (1) Abdominal pain Current Visit: Yes Status: Acute Qualifiers: Abdominal location: lower abdomen, unspecified Assessment & Plan: improving, will advance diet Code(s): R10.9 - UNSPECIFIED ABDOMINAL PAIN (2) Vomiting Current Visit: Yes Status: Acute Qualifiers: Vomiting type: unspecified Vomiting Intractability: non-intractable Nausea presence: with nausea Qualified Code(s): R11.2 - Nausea with vomiting, unspecified Code(s): R11.10 - VOMITING, UNSPECIFIED (3) Anemia Current Visit: Yes Status: Chronic Qualifiers: Anemia type: unspecified type Qualified Code(s): D64.9 - Anemia, unspecified Code(s): D64.9 - ANEMIA, UNSPECIFIED (4) Renal insufficiency Current Visit: Yes Status: Chronic (5) Atrial fibrillation Current Visit: No Status: Chronic Code(s): I48.91 - UNSPECIFIED ATRIAL FIBRILLATION
[2019-03-04] MEDS: Zofran 4 MG/2 ML VIAL IV PRN (13:19)
[2019-03-04] MEDS ORDERED: Zocor 10MG ONE (19:56)
[2019-03-04] MEDS ORDERED: ECOTRIN 81 MG PO ONE (19:56)
[2019-03-04] MEDS: Sodium Chloride 0.9% 1000 ML 1,000 ML IV SCH (20:46)
[2019-03-04] MEDS: ECOTRIN 81 MG PO SCH (21:43)
[2019-03-04] MEDS: Zocor 10MG PO SCH (21:43)
[2019-03-04] MEDS ORDERED: NON-FORMULARY ITEM (Atorvastatin Calcium [Lipitor] 10 MG) PO SCH (22:00)
[2019-03-04] MEDS ORDERED: NON-FORMULARY ITEM (Metformin Hcl [Glucophage] 1,000 MG) PO SCH (22:00)
[2019-03-04] MEDS ORDERED: NON-FORMULARY ITEM (Aspirin [Aspirin] 81 MG) PO SCH (22:00)
[2019-03-05] MEDS: Zofran 4 MG/2 ML VIAL IV PRN ×4 (01:24→22:39)
[2019-03-05 05:41] LABS: Hematocrit 24.8 % (42-50); Hemoglobin 7.1 gm/dl (12.5-18.0); Mean Cell Volume 75.2 fl (78-100); Mean Corpuscular Hemoglobin 21.5 pg (26-32); Mean Corpuscular Hgb Concent. 28.6 g/dl (32-36); Mean Platelet Volume 11.3 fl (6-9.5); Platelet Count 187 K/mm3 (150-450); Red Cell Distribution Width 19.2 % (11.5-14.0); White Blood Count 7.6 K/mm3 (4.0-10.5)
[2019-03-05] MEDS: Sodium Chloride 0.9% 1000 ML 1,000 ML IV SCH ×2 (05:43→17:23)
[2019-03-05 05:57] LABS: ALBUMIN 3.7 g/dL (3.5-5.0); ANION GAP 15.3 MEQ/L (5-15); BILIRUBIN,TOTAL 0.5 mg/dL (0.2-1.3); Creatinine 1 1.44 mg/dL (0.66-1.25); Potassium 4.7 mmol/L (3.5-5.1); Total Protein 6.7 g/dL (6.3-8.2)
[2019-03-05] MEDS: AMARYL 4 MG PO SCH (08:12)
[2019-03-05] MEDS: Micronase 5 MG PO SCH (08:12)
[2019-03-05] MEDS: Glucophage 500 MG PO SCH ×2 (08:13→16:27)
[2019-03-05] MEDS ORDERED: Dulcolax 10 MG SUPP PR ONE (08:35)
[2019-03-05] MEDS ORDERED: SENOKOT 8.6 MG PO ONE (08:37)
[2019-03-05] MEDS: COREG 12.5 MG PO SCH ×2 (09:02→21:18)
[2019-03-05] MEDS: Protonix 40MG Tablet PO SCH (09:02)
[2019-03-05] MEDS: Klor Con 10 MEQ PO SCH (09:03)
[2019-03-05] MEDS: Apresoline 25 MG TABLET PO SCH ×5 (09:03→21:18)
[2019-03-05] MEDS ORDERED: GLYBURIDE 2.5 MG PO SCH (10:00)
[2019-03-05] MEDS: LASIX 20 MG PO SCH (10:43)
--- NOTE | 2019-03-05 13:25 | PCM.NOTE ---
Date and Time: 03/05/19 1320 Subjective Assessment: doing ok. patient conditions discussed with and patient. Due to multiple medical problems and comorbid conditions there are too many options for cure left. patient will benefit from hospice and they both agreed. So we will get hospice on consult. - Review of Systems Constitutional: No Fever, No Chills Eyes: No Symptoms Ears, Nose, & Throat: No Symptoms Respiratory: No Cough, No Short Of Breath Cardiac: No Chest Pain, No Edema, No Syncope Abdominal/Gastrointestinal: No Abdominal Pain, No Nausea, No Vomiting, No Diarrhea Genitourinary Symptoms: No Dysuria Musculoskeletal: No Back Pain, No Neck Pain Skin: No Rash Neurological: No Dizziness, No Focal Weakness, No Sensory Changes Psychological: No Symptoms Endocrine: No Symptoms Hematologic/Lymphatic: No Symptoms Immunological/Allergic: No Symptoms Objective Exam General Appearance: no apparent distress, alert Neurologic Exam: alert, oriented x 3, cooperative, normal mood/affect, nml cerebellar function, sensation nml, No motor deficits Skin Exam: normal color, warm, dry Eye Exam: PERRL, EOMI, eyes nml inspection Ears, Nose, Throat Exam: normal ENT inspection, pharynx normal, moist mucous membranes Neck Exam: normal inspection, non-tender, supple, full range of motion Respiratory Exam: normal breath sounds, lungs clear, No respiratory distress Cardiovascular Exam: regular rate/rhythm, normal heart sounds Gastrointestinal/Abdomen Exam: soft, No tenderness, No mass Extremity Exam: normal inspection, normal range of motion Back Exam: normal inspection, normal range of motion, No CVA tenderness, No vertebral tenderness Male Genitalia Exam: deferred Rectal Exam: deferred OBJECTIVE DATA Vital Signs: Vital Signs - 24 hr Temp Pulse Resp BP Pulse Ox 03/05/19 13:00 97.6 F 69 19 130/60 97 03/05/19 07:24 98.7 F 83 19 174/88 96 03/05/19 04:36 75 20 146/74 96 03/05/19 01:06 98.3 F 73 18 149/67 95 03/04/19 20:03 67 20 94 L 03/04/19 20:00 97.8 F 66 21 143/79 100 03/04/19 16:10 97.9 F 86 20 136/80 94 L Oxygen-Last 24 hours O2 Percentage 2 Liters = 28% O2 Percentage 2 Liters = 28% O2 Percentage 2 Liters = 28% O2 Percentage 2 Liters = 28% O2 Percentage 2 Liters = 28% Pain Assessment - Last Documented Pain Intensity 0 Pain Scale Used 0-10 Pain Scale Intake and Output: Intake & Output 03/03/19 03/04/19 03/05/19 03/06/19 11:59 11:59 11:59 11:59 Intake Total 360 2716 Balance 360 2716 Weight 95.6 kg 95.6 kg Lab Results: Accuchecks Date 03/04/19 Date 03/04/19 Time 21:00 Time 16:30 Accucheck Value: 155 Accucheck Value: 171 Accucheck Value: 167 Lab Results-Last 24 Hours 03/05/19 03/05/19 Range/Units 05:32 05:32 WBC 7.6 (4.0-10.5) K/mm3 RBC 3.30 L (4.1-5.6) M/mm3 Hgb 7.1 L (12.5-18.0) gm/dl Hct 24.8 L (42-50) % MCV 75.2 L (78-100) fl MCH 21.5 L (26-32) pg MCHC 28.6 L (32-36) g/dl RDW 19.2 H (11.5-14.0) % Plt Count 187 (150-450) K/mm3 MPV 11.3 H (6-9.5) fl Sodium 141 (137-145) mmol/L Potassium 4.7 (3.5-5.1) mmol/L Chloride 105 (98-107) mmol/L Carbon Dioxide 25 (22-30) mmol/L Anion Gap 15.3 H (5-15) MEQ/L BUN 26 H (9-20) mg/dL Creatinine 1.44 H (0.66-1.25) mg/dL Estimated GFR 50.4 ML/MIN Glucose 155 H (74-106) mg/dL Calcium 9.0 (8.4-10.2) mg/dL Total Bilirubin 0.50 (0.2-1.3) mg/dL AST 11 L (17-59) U/L ALT 10 (0-50) U/L Alkaline Phosphatase 67 (38-126) U/L Serum Total Protein 6.7 (6.3-8.2) g/dL Albumin 3.7 (3.5-5.0) g/dL Slides for Path Review Radiology Exams: Radiology Procedures Category Date Time Status ABDOMEN AND PELVIS W/0 CONTRAS [CT] Stat Exams 03/04/19 00:36 Completed CHEST 1 VIEW (PORTABLE) Stat Exams 03/04/19 00:04 Completed Assessment/Plan (1) Abdominal pain Current Visit: Yes Status: Resolved Qualifiers: Abdominal location: lower abdomen, unspecified Qualified Code(s): R10.30 - Lower abdominal pain, unspecified Assessment & Plan: doing better Code(s): R10.9 - UNSPECIFIED ABDOMINAL PAIN (2) Vomiting Current Visit: Yes Status: Resolved Qualifiers: Vomiting type: unspecified Vomiting Intractability: non-intractable Nausea presence: with nausea Qualified Code(s): R11.2 - Nausea with vomiting, unspecified Code(s): R11.10 - VOMITING, UNSPECIFIED (3) Anemia Current Visit: Yes Status: Chronic Qualifiers: Anemia type: due to chronic kidney disease Chronic kidney disease stage: stage 4 (severe) Qualified Code(s): N18.4 - Chronic kidney disease, stage 4 ( severe); D63.1 - Anemia in chronic kidney disease Code(s): D64.9 - ANEMIA, UNSPECIFIED (4) Renal insufficiency Current Visit: Yes Status: Chronic (5) Atrial fibrillation Current Visit: Yes Status: Chronic Qualifiers: Atrial fibrillation type: chronic Qualified Code(s): I48.2 - Chronic atrial fibrillation Code(s): I48.91 - UNSPECIFIED ATRIAL FIBRILLATION (6) CAD (coronary artery disease) Current Visit: Yes Status: Acute Qualifiers: Coronary Disease-Associated Artery/Lesion type: [place] artery Code(s): I25.10 - ATHSCL HEART DISEASE OF [place] CORONARY ARTERY W/O ANG PCTRS (7) Chronic ischemic colitis, enteritis, or enterocolitis Current Visit: Yes Status: Chronic Code(s): K55.1 - CHRONIC VASCULAR DISORDERS OF INTESTINE
[2019-03-05] MEDS ORDERED: PHARMACY DOSING REQUEST MC ONE (14:41)
[2019-03-05] MEDS ORDERED: Venofer 100 MG/5 ML*** 200 MG in Sodium Chloride 0.9% 100 ML IVPB 100 ML IV SCH (15:00)
[2019-03-05] MEDS: ECOTRIN 81 MG PO SCH (21:18)
[2019-03-05] MEDS: Zocor 10MG PO SCH (21:18)
[2019-03-06] MEDS: Sodium Chloride 0.9% 1000 ML 1,000 ML IV SCH (04:12)
[2019-03-06] MEDS: Glucophage 500 MG PO SCH (08:51)
[2019-03-06] MEDS: Micronase 5 MG PO SCH (08:51)
[2019-03-06] MEDS: AMARYL 4 MG PO SCH (08:51)
[2019-03-06] MEDS: Apresoline 25 MG TABLET PO SCH (11:27)
[2019-03-06] MEDS: Klor Con 10 MEQ PO SCH (11:28)
[2019-03-06] MEDS: LASIX 20 MG PO SCH (11:30)
[2019-03-06] MEDS: Protonix 40MG Tablet PO SCH (11:30)
[2019-03-06] MEDS: COREG 12.5 MG PO SCH (11:31)
[2019-03-06 12:20] VITALS: BP 170/86; PULSE 75; O2SAT 97
--- NOTE | 2019-03-06 19:04 | PCM.DS ---
Discharge Summary Date of Admission: 03/04/19 03:01 Admitting Physician: BRIDGET LAU Primary Care Provider: BRIDGET LAU Allergies Allergies No Known Drug Allergies Allergy (Verified 03/03/19 23:19) Hospital Summary - Hospital Course Hospital Course: Chief Complaint Diagnosis Abdominal pain for 1 day Allergies Allergy/AdvReac Type Severity Reaction Status Date / Time No Known Drug Allergies Allergy Verified 03/03/19 23:19 Vital Signs (Last 24 hours) Temp Pulse Resp BP Pulse Ox 03/06/19 12:00 98.5 F 75 20 170/86 97 03/06/19 09:31 98.5 F 56 L 20 140/83 93 L 03/06/19 08:00 97.8 F 57 L 18 143/64 98 03/06/19 04:00 97.8 F 57 L 18 143/64 98 03/05/19 23:46 66 19 03/05/19 21:09 78 20 98 03/05/19 19:53 97.9 F 79 19 168/80 98 Home Medications Medication Instructions Recorded Confirmed Last Taken Type Glimepiride 4 mg [Amaryl 4 4 mg PO DAILY 03/04/19 03/04/19 03/03/19 History mg] Current Medications Discontinued Medications Generic Name Dose Route Start Last Admin Trade Name Freq PRN Reason Stop Dose Admin Albuterol/Ipratropium 3 ml 03/04/19 03:19 Duoneb 0.5-3 Mg/3 Ml Neb IH 04/03/19 03:18 Q4HPRN PRN SHORTNESS OF BREATH/WHEEZING Aspirin 81 mg 03/04/19 22:00 03/05/19 21:18 Ecotrin 81 Mg PO 04/03/19 21:59 81 mg HS CRISTINO Administration Aspirin Confirm 03/04/19 19:56 Ecotrin 81 Mg Administered 03/04/19 19:57 Dose 81 mg PO .STK-MED ONE Bisacodyl 10 mg 03/05/19 08:35 03/05/19 09:03 Dulcolax 10 Mg Supp LA 03/05/19 08:36 10 mg ONCE ONE Administration Carvedilol 12.5 mg 03/04/19 11:00 03/06/19 11:31 Coreg 12.5 Mg PO 04/03/19 10:59 12.5 mg BID CRISTINO Administration Clonidine HCl 0.1 mg 03/04/19 10:00 03/05/19 12:25 Catapres-Tts 1 Patch TD 04/03/19 09:59 0.1 mg WEEKLY CRISTINO Administration Furosemide 10 mg 03/04/19 11:00 03/06/19 11:30 Lasix 20 Mg PO 04/03/19 10:59 Not Given DAILY CRISTINO Glimepiride 4 mg 03/04/19 11:00 03/06/19 08:51 Amaryl 4 Mg PO 04/03/19 10:59 Not Given BREAKFAST CRISTINO Glyburide 2.5 mg 03/04/19 11:00 03/06/19 08:51 Micronase 5 Mg PO 04/03/19 10:59 Not Given BREAKFAST CRISTINO Hydralazine HCl 25 mg 03/04/19 13:00 03/06/19 11:27 Apresoline 25 Mg Tablet PO 04/03/19 12:59 25 mg QID CRISTINO Administration Sodium Chloride 1,000 mls @ 100 mls/hr 03/03/19 23:45 03/04/19 00:41 Sodium Chloride 0.9% 1000 Ml IV 04/02/19 23:44 100 mls/hr .Q10H CRISTINO Administration Sodium Chloride Confirm 03/04/19 00:30 Sodium Chloride 0.9% 1000 Ml Administered 03/04/19 00:31 Dose 1,000 mls @ ud .ROUTE .STK-MED ONE Sodium Chloride 1,000 mls @ 100 mls/hr 03/04/19 03:19 03/06/19 04:12 Sodium Chloride 0.9% 1000 Ml IV 04/03/19 03:18 100 mls/hr .Q10H CRISTINO Administration Iron Sucrose 200 mg/ Sodium 110 mls @ 200 mls/hr 03/05/19 15:00 03/05/19 15: 21 Chloride IV 03/09/19 15:32 200 mls/hr Q2D CRISTINO Administration Insulin Aspart 0 unit 03/04/19 03:19 Novolog Insulin SQ 04/03/19 03:18 UD PRN HYPERGLYCEMIA Metformin HCl 1,000 mg 03/04/19 11:00 03/06/19 08:51 Glucophage 500 Mg PO 04/03/19 10:59 Not Given BIDWM CRISTINO Morphine Sulfate 4 mg 03/04/19 00:29 03/04/19 00:41 Morphine Sulfate 4 Mg Inj IV 03/04/19 00:30 4 mg STAT ONE Administration Morphine Sulfate Confirm 03/04/19 00:30 Morphine Sulfate 4 Mg Inj Administered 03/04/19 00:31 Dose 4 mg .ROUTE .STK-MED ONE Morphine Sulfate 2 mg 03/04/19 02:34 03/04/19 02:39 Morphine Sulfate 2 Mg Inj IV 03/04/19 02:35 2 mg STAT ONE Administration Morphine Sulfate Confirm 03/04/19 02:36 Morphine Sulfate 2 Mg Inj Administered 03/04/19 02:37 Dose 2 mg .ROUTE .STK-MED ONE Morphine Sulfate 4 mg 03/04/19 03:19 Morphine Sulfate 4 Mg Inj IV 03/09/19 03:18 Q4H PRN PRN PAIN Non-Formulary Medication 1 each 03/05/19 14:41 Pharmacy Dosing Request 03/05/19 14:42 STAT ONE Ondansetron HCl 4 mg 03/03/19 23:38 03/04/19 00:41 Zofran 4 Mg/2 Ml Vial IV 03/03/19 23:39 4 mg STAT ONE Administration Ondansetron HCl Confirm 03/04/19 00:30 Zofran 4 Mg/2 Ml Vial Administered 03/04/19 00:31 Dose 4 mg .ROUTE .STK-MED ONE Ondansetron HCl 4 mg 03/04/19 03:19 03/04/19 09:14 Zofran 4 Mg/2 Ml Vial IV 04/03/19 03:18 4 mg Q6H PRN PRN Administration NAUSEA/VOMITING Ondansetron HCl 4 mg 03/04/19 13:17 03/05/19 22:39 Zofran 4 Mg/2 Ml Vial IV 04/03/19 13:16 4 mg Q4H/PRN PRN Administration NAUSEA/VOMITING Pantoprazole Sodium 40 mg 03/04/19 11:00 03/06/19 11:30 Protonix 40mg Tablet PO 04/03/19 10:59 40 mg DAILY CRISTINO Administration Potassium Chloride 10 meq 03/05/19 10:00 03/06/19 11:28 Klor Con 10 Meq PO 04/04/19 09:59 10 meq DAILY CRISTINO Administration Promethazine HCl 25 mg 03/03/19 23:57 03/03/19 23:59 Phenergan 25 Mg Inj IM 03/03/19 23:58 25 mg STAT ONE Administration Promethazine HCl Confirm 03/03/19 23:59 Phenergan 25 Mg Inj Administered 03/04/19 00:00 Dose 25 mg .ROUTE .STK-MED ONE Senna 8.6 mg 03/05/19 08:37 03/05/19 09:03 Senokot 8.6 Mg PO 03/05/19 08:38 8.6 mg ONCE ONE Administration Simvastatin 10 mg 03/04/19 22:00 03/05/19 21:18 Zocor 10mg PO 04/03/19 21:59 10 mg HS CRISTINO Administration Simvastatin Confirm 03/04/19 19:56 Zocor 10mg Administered 03/04/19 19:57 Dose 10 mg .ROUTE .STK-MED ONE Intake & Output (Last 24 hours) 03/04/19 03/05/19 03/06/19 03/07/19 11:59 11:59 11:59 11:59 Intake Total 360 2716 3068 Balance 360 2716 3068 Weight 95.6 kg 95.6 kg 102 kg Laboratory Results (Last 24 hours) 03/06/19 05:30 Hgb 6.8 L* Orders (Last 24 hours) Category Date Time Status Discharge Routine Discharge 03/06/19 Ordered Discharge/Telephone Order Routine Discharge 03/06/19 Active Hemoglobin Routine Lab 03/06/19 05:30 Completed Patient Care Notes (Last 24 hours) 03/06/19 13:02 Nursing Note by Alexia Govea Walked by Pt. room son came out and stated "I want to take him home, all 3 of you are not communicating, and that's the problem." The son bent over and took my badge to look at my name, and he stated "You are the problem, my mom is the problem and hospice no one is talking to one another." I tried to explain to the son that I had just spoke to his mom a Addendum entered by Alexia Govea 03/06/19 13:17: an hour ago, and we are going to give him his shower with the walk in shower. Pt. had refused his shower this am because he wants to wait to go home and get a shower. Son stated "No unhook him I'm taking him home now." I took out his IV and unhooked his tele. Son got him dressed. I did talk to Samuel DELA CRUZmethods analyst and she went in to talk to Pt. and son and they just wanted to leave. I called Mirlande Pt. to let her know that they were on their way home because I know she had been waiting on the hospice bed to be delivered. She apologized over and over for her 's behavior and her son being upset. I told her she is ok, it is ok. Mirlande stated "I knew this day would come and we have had a lot to deal with." I told her "not to be sorry, it is ok' Pt. son wheeled out Pt. to [place] [address] where he took him home. Initialized on 03/06/19 13:02 - END OF NOTE 03/06/19 11:50 Nursing Note by Alexia Govea Went into Pt. room to give him medications and Pt. said "I don't want the hospital bed, I won't sleep in it, I want to go home." Explained to Pt. his had called and said, "We are just waiting for the hospice bed to be delivered." I told her "I totally understand, and to let me know when someone will be coming to get him, and when you get the bed." Pt. was very upset and said "I just want to go home." I explained again to him that family is waiting on bed. Initialized on 03/06/19 11:50 - END OF NOTE 03/06/19 09:10 Nursing Note by Maru Jorge ROUNDED WITH DR DAHL THIS AM OFFERED BLOOD TRANSFUSION TO PT THOUGH PT REFUSES STATES HE IS READY TO GO HOME AND IS NOT GOING TO STAY AROUND FOR INFUSION. WILL DC PT HOME WITH NO CHANGES TO PLAN OF CARE Initialized on 03/06/19 09:10 - END OF NOTE 03/06/19 06:58 Nursing Note by Chelsey De La Garza Dr. called x 3 to report patient HGB 6.8 without success. Results passed onto day shift nurse and household manager. Initialized on 03/06/19 06:58 - END OF NOTE - Vitals & Intake/Output Vital Signs: Vital Signs Temperature 98.5 F 03/06/19 12:00 Pulse Rate 75 03/06/19 12:00 Respiratory Rate 20 03/06/19 12:00 Blood Pressure 170/86 03/06/19 12:00 O2 Sat by Pulse Oximetry 97 03/06/19 12:00 Oxygen-Last Documented O2 Percentage 2 Liters = 28% Intake & Output: Intake & Output 03/04/19 03/05/19 03/06/19 03/07/19 11:59 11:59 11:59 11:59 Intake Total 360 2716 3068 Balance 360 2716 3068 Weight 95.6 kg 95.6 kg 102 kg - Lab Result Diagrams: 03/06/19 05:30 03/05/19 05:32 Lab Results-Last 24 Hrs: Accuchecks Date 03/06/19 Date 03/06/19 Date 03/05/19 Time 11:30 Time 07:30 Time 22:00 Accucheck Value: 127 Accucheck Value: 101 Accucheck Value: 98 Lab Results-Last 24 Hours 03/06/19 Range/Units 05:30 Hgb 6.8 L* (12.5-18.0) gm/dl Micro Results-Entire Visit: Microbiology 03/04/19 03:14 Blood Culture - Preliminary Blood NO GROWTH TO DATE 03/04/19 01:34 Blood Culture Gram Stain - Preliminary Blood Blood Culture - Preliminary NO GROWTH TO DATE Accuchecks Date 03/06/19 Date 03/06/19 Date 03/05/19 Time 11:30 Time 07:30 Time 22:00 Accucheck Value: 127 Accucheck Value: 101 Accucheck Value: 98 - Procedures and Test Procedures and Tests throughout Hospitalization: Therapy Orders & Screens 03/04/19 03:19 Oxygen Nasal Cannula 2 lpm Comment: Respiratory Therapy Consult ROUTINE Comment: Reason For Exam: 03/04/19 04:13 RT Screen per Nursing Assess ONCE Comment: Protocol Order Physician Instructions: Greater than 3 points order RT Admission Screen Reason For Exam: Triggered on Admission Diagnosis: Abdominal pain Diagnosis: Abdominal pain Pneumonia: No Home O2: Yes Asthma: No CHF: Yes Home CPAP/BIPAP: No Home Nebs/MDI: No Total Points: 8 03/04/19 04:39 Respiratory Therapy Assessment DAILY Comment: Diagnosis: Abdominal pain 03/04/19 07:00 Peak Expiratory Flow Rate ONCE Comment: Reason For Exam: Diagnosis: Abdominal pain Discharge Exam General Appearance: no apparent distress, alert Neurologic Exam: alert, oriented x 3, cooperative, normal mood/affect, nml cerebellar function, sensation nml, No motor deficits Skin Exam: normal color, warm, dry Eye Exam: PERRL, EOMI, eyes nml inspection Ears, Nose, Throat Exam: normal ENT inspection, pharynx normal, moist mucous membranes Neck Exam: normal inspection, non-tender, supple, full range of motion Respiratory Exam: normal breath sounds, lungs clear, No respiratory distress Cardiovascular Exam: regular rate/rhythm, normal heart sounds Gastrointestinal/Abdomen Exam: soft, No tenderness, No mass Extremity Exam: normal inspection, normal range of motion Back Exam: normal inspection, normal range of motion, No CVA tenderness, No vertebral tenderness Male Genitalia Exam: deferred Rectal Exam: deferred Final Diagnosis/Problem List - Final Discharge Diagnosis/Problem (1) Abdominal pain Status: Resolved Code(s): R10.9 - UNSPECIFIED ABDOMINAL PAIN (2) Vomiting Status: Resolved Code(s): R11.10 - VOMITING, UNSPECIFIED (3) Anemia Status: Chronic Code(s): D64.9 - ANEMIA, UNSPECIFIED (4) Renal insufficiency Status: Chronic (5) Atrial fibrillation Status: Chronic Code(s): I48.91 - UNSPECIFIED ATRIAL FIBRILLATION (6) CAD (coronary artery disease) Status: Acute Code(s): I25.10 - ATHSCL HEART DISEASE OF [place] CORONARY ARTERY W/O ANG PCTRS (7) Chronic ischemic colitis, enteritis, or enterocolitis Status: Chronic Code(s): K55.1 - CHRONIC VASCULAR DISORDERS OF INTESTINE - Discharge Discharge Date: 03/06/19 Disposition: Hospice @ [facility] Condition: Stable Prescriptions: Continue Carvedilol 12.5 mg [Coreg 12.5 mg] 12.5 mg PO BID PANTOPRAZOLE 40 mg Tablet [Protonix 40MG Tablet] 40 mg PO DAILY Atorvastatin Calcium [Lipitor] 10 mg PO HS Aspirin 81 mg PO HS Furosemide 20 mg [Lasix 20 mg] 10 mg PO DAILY glyBURIDE [Glyburide] 2.5 mg PO DAILY HydrALAzine HCL 25 MG TAB [Apresoline 25 MG TABLET] 25 mg PO QID Metformin HCl [Glucophage] 1,000 mg PO BID Clonidine [Catapres-Tts 1] 0.1 mg TD WEEKLY Potassium Chloride 10 Meq Tab* [Klor Con 10 MEQ] 10 meq PO DAILY Glimepiride 4 mg [Amaryl 4 mg] 4 mg PO DAILY Instructions: Coronary Heart Disease (DC) Additional Instructions: FU WITH DR LAU DIRECTED PER HIM Follow up with: BRIDGET LAU MD [Primary Care Provider] - 03/12/19 1:30 pm (at [facility])
--- NOTE | 2019-03-09 13:51 | DS ---
DISCHARGE DIAGNOSES: 1) ISCHEMIC BOWEL DISEASE. 2) ANEMIA. HISTORY: The patient is a 78 year-old white male patient who presented to the emergency room with complaints of abdominal pain. He apparently was found to have ischemic bowel disease and was found also to be anemic. His hemoglobin at the time of discharge was down to 6.8. He has been receiving iron transfusions. The patient was offered blood transfusion but he refused it at this time. He wishes to go home. He is going home with Hospice care. The patient was noted to have troponins which were normal. He had a lactic acid of 2.3 on initial evaluation on 03/03/2019. His sugar was 136, BUN 31, creatinine 1.56. Electrolytes were normal. Liver enzymes were normal. Amylase and lipase were normal. His white count was 9,100, hemoglobin 7.5, PLT count 218,000. He had several more troponins all less than 0.012. He is noted to be A+ on antibody screen on his blood count. The patient had CT scan of abdomen and pelvis showing diffuse scattered atherosclerotic disease with enlarging distal abdominal aortic aneurysm, stable aortobiiliac stent graft, new cardiomegaly, stable hiatal hernia and positive for kidney disease with left renal adenoma and enlarged prostate. HOSPITAL COURSE: He was admitted to the hospital on IV fluids and did seem to improve his gut pain. He was in good spirits by the time of discharge on 03/06/2019. We discussed with him the Hospice care and he was strongly wishing to be discharged home at this time. He reports that he is not ready to be at the end of his life at this time however he does wish to be discharged home under Hospice care even though we discussed with him what that meant. The patient will be discharged home at this time to Hospice care. The patient will be discharged home on his usual medications of atorvastatin, carvedilol, clonidine, Furosemide, glimepiride, Glyburide, Apresoline, Glucophage, pantoprazole and potassium.
== END 2019-03-06 12:44 | disposition hospice, home (50) ==
LOC: ED 23:13 → MED SURG 03-04 03:01
PROVIDERS: ADMIT General Practice; ATTEND General Practice
DX: R10.9 Unspecified abdominal pain (principal); R11.10 Vomiting, unspecified; D64.9 Anemia, unspecified; K55.1 Chronic vascular disorders of intestine; N28.9 Disorder of kidney and ureter, unspecified; I48.91 Unspecified atrial fibrillation; I25.10 Atherosclerotic heart disease of native coronary artery without angina pectoris; Z79.899 Other long term (current) drug therapy; I71.4 Abdominal aortic aneurysm, without rupture; I10 Essential (primary) hypertension; I51.7 Cardiomegaly; K44.9 Diaphragmatic hernia without obstruction or gangrene; J44.9 Chronic obstructive pulmonary disease, unspecified; E11.9 Type 2 diabetes mellitus without complications; Z86.73 Personal history of transient ischemic attack (TIA), and cerebral infarction without residual deficits; E78.00 Pure hypercholesterolemia, unspecified; D30.02 Benign neoplasm of left kidney; N40.0 Benign prostatic hyperplasia without lower urinary tract symptoms
CPT/HCPCS: 36415; 71045; 74176; 80053; 81001; 82150; 82962; 83605; 83690; 84484; 85018; 85025; 85027; 86850; 86900; 86901; 87040; 93005; 93268; 94762; 96360; 96361; 96372; 96374; 96375; 96376; 99285; G0378; J1756; J2270; J2405; J2550; A9270-GY

== ENCOUNTER 2019-09-19 13:23 | Inpatient (IN) | payer MEDICARE ==
--- NOTE | 2019-09-19 13:46 | ERPHSYRPT ---
- History of Present Illness Time Seen by Provider: 09/19/19 13:35 Source: patient, family Exam Limitations: no limitations Patient Subjective Stated Complaint: pt brought in by ambulance today for weakness progressively getting worse. pt is on hospice. they states he received blood on jul 21 for a low hgb, pt has had scopes and they are unsure of where blood is coming from. he has chronic dark tarry stools Triage Nursing Assessment: pt alert, resp labored at rest, wears o2 at 3 l nc, edema not lower legs that is chronic. pale,skin w/d. moves all ext well. Physician History: Patient is a hospice patient over the past 6 months due to multiple conditions relating to the cardiac, pulmonary and gastrointestinal problems. He has had increasing generalized weakness over the past week. Patient has a history of gastrointestinal bleeds and over multiple months he's had black stools, which has increased over the past week. The patient is usually ambulatory, but over this past week he has not moved around very much do to having increasing generalized weakness. Patient does not have any focal neurologic deficits, change in speech, change in vision, or any facial droop or any perceived loss of sensation. Timing/Duration: gradual onset, worse (over the past week) Severity: severe Modifying Factors: Worsens With: movement Associated Symptoms: loss of appetite, weakness (generalized), No nausea, No vomiting, No abdominal pain, No shortness of breath, No heartburn, No diaphoresis, No cough, No chills, No chest pain, No fever, No headaches, No malaise, No rash, No syncope, No seizure Allergies/Adverse Reactions: No Known Drug Allergies Allergy (Verified 09/19/19 13:39) Home Medications: Carvedilol 12.5 mg [Coreg 12.5 mg] 12.5 mg PO BID 05/01/15 [History] Atorvastatin Calcium [Lipitor] 10 mg PO HS 04/24/17 [History] PANTOPRAZOLE 40 mg Tablet [Protonix 40MG Tablet] 40 mg PO DAILY 04/24/17 [ History] Clonidine [Catapres-Tts 1] 0.1 mg TD WEEKLY 01/02/19 [History] HydrALAzine HCL 25 MG TAB [Apresoline 25 MG TABLET] 25 mg PO QID 01/02/19 [History] Metformin HCl [Glucophage] 1,000 mg PO BID 01/02/19 [History] Potassium Chloride 10 Meq Tab* [Klor Con 10 MEQ] 10 meq PO DAILY 01/02/19 [ History] glyBURIDE [Glyburide] 2.5 mg PO DAILY 01/02/19 [History] Glimepiride 4 mg [Amaryl 4 mg] 4 mg PO DAILY 03/04/19 [History] Hx Tetanus, Diphtheria Vaccination/Date Given: Yes Hx Influenza Vaccination/Date Given: No Hx Pneumococcal Vaccination/Date Given: No Immunizations Up to Date: Yes - Review of Systems Constitutional: Fatigue, Weakness, No Fever, No Chills, No Weight Loss Eyes: No Eye Pain, No Vision Changes Ears, Nose, & Throat: No Epistaxis, No Mouth Swelling, No Throat Pain, No Painful Swallowing Respiratory: No Cough, No Dyspnea Cardiac: Edema (chronic in the lower extremities), No Chest Pain, No Palpitations, No Syncope Abdominal/Gastrointestinal: Melena, No Abdominal Pain, No Nausea, No Vomiting, No Diarrhea, No Hematemesis, No Hematochezia Genitourinary Symptoms: No Dysuria, No Frequency, No Hematuria, No Urinary Retention, No Flank Pain Musculoskeletal: No Back Pain, No Neck Pain, No Joint Swelling Neurological: No Dizziness, No Focal Weakness, No Headache, No Paralysis, No Parasthesia, No Seizure, No Sensory Changes, No Speech Changes, No Tremors, No Vertigo Psychological: No Anxiety, No Emotional Lability Endocrine: No Polydipsia, No Excessive Sweating Hematologic/Lymphatic: No Easy Bleeding, No Easy Bruising All Other Systems: Reviewed and Negative - Past Medical History Pertinent Past Medical History: Yes Neurological History: Stroke ENT History: Cataracts, Other Cardiac History: Arrhythmia, High Cholesterol, Hypertension, Peripheral Vascular Disease Respiratory History: COPD Endocrine Medical History: Diabetes Type II Musculoskeletal History: No Pertinent History GI Medical History: Hemorrhoids, Other History: Renal Disease Psycho-Social History: No Pertinent History Male Reproductive Disorders: Prostate Problems Other Medical History: cellulitis. kadeem cataracts. no polyps , but a cluster of veins, enlarge prostate.shingles. dermatitis. Myositis. - Past Surgical History Past Surgical History: Yes Neuro Surgical History: No Pertinent History Cardiac: Other Respiratory: No Pertinent History Gastrointestinal: No Pertinent History Genitourinary: No Pertinent History Musculoskeletal: Orthopedic Surgery Male Surgical History: No Pertinent History Other Surgical History: kadeem knee surgery. colonoscopy. 3 aortic stents - Social History Smoking Status: Never smoker How long have you smoked: 40 Exposure to second hand smoke: No Drug Use: none Patient Lives Alone: No - Nursing Vital Signs Nursing Vital Signs: Initial Vital Signs Temperature 97.0 F 09/19/19 13:27 Pulse Rate 73 09/19/19 13:27 Respiratory Rate 22 09/19/19 13:27 Blood Pressure 136/62 09/19/19 13:27 O2 Sat by Pulse Oximetry 90 L 09/19/19 13:27 Pain Scale Pain Intensity 0 - Physical Exam General Appearance: no apparent distress, alert Eye Exam: PERRL/EOMI, eyes nml inspection, pale conjunctivae, No scleral icterus , No photophobia Ears, Nose, Throat Exam: normal ENT inspection, TMs normal, pharynx normal, moist mucous membranes Neck Exam: normal inspection, non-tender, supple, full range of motion, No meningismus, No Brudzinski, No lymphadenopathy Respiratory Exam: normal breath sounds, lungs clear, airway intact, No chest tenderness, No respiratory distress, No diminished breath sounds, No accessory muscle use, No crackles/rales, No rhonchi, No wheezing, No stridor, No pleural rub Cardiovascular Exam: normal heart sounds, irregular, capillary refill <2 sec Gastrointestinal/Abdomen Exam: soft, normal bowel sounds, No tenderness, No distention, No guarding, No rebound Extremity Exam: normal range of motion, pelvis stable, No contusions, No deformities, No lacerations, No jairo's sign, No inflammation, No swelling, No tenderness Neurologic Exam: alert, oriented x 3, cooperative, 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, normal mood/affect, sensation nml Skin Exam: warm, dry, other (indurated skin on the lower legs bilaterally), No rash, No jaundice, No cyanosis, No diaphoresis SpO2 Interpretation: borderline oxygenation, O2 applied (patient on 3 liters chronically) SpO2: 90 O2 Delivery: Nasal Cannula - Course Nursing assessment & vital signs reviewed: Yes EKG Interpreted by Me: RATE (64), A-fib, LAFB, NORMAL INTERVALS, NORMAL QRS, NORMAL ST-T, Other (no appreciable change from comparison to EKG from 03/04/2019) - Radiology Exams Chest X-ray Interpretation: Interpreted by me, Reviewed by me, No Fracture, No Pneumothorax, No Infiltrates, Nml Mediastinum, Other (cardiomegaly) Ordered Tests: Active Orders 24 hr Category Date Time Status Lead Mobile Developer STAT Care 09/19/19 13:32 Active EKG-ER Only STAT Care 09/19/19 13:32 Active IV Insertion STAT Care 09/19/19 13:32 Active Pulse Oximetry (ED) STAT Care 09/19/19 13:32 Active CHEST 1 VIEW (PORTABLE) Stat Exams 09/19/19 13:34 Ordered AMYLASE Stat Lab 09/19/19 13:40 Completed BLOOD CULTURE Stat Lab 09/19/19 13:32 Ordered CBC W DIFF Stat Lab 09/19/19 13:40 Completed CK-Creatinine Phosphokinase Stat Lab 09/19/19 13:40 Completed CMP Stat Lab 09/19/19 13:40 Completed LIPASE Stat Lab 09/19/19 13:40 Completed Lactic Acid Stat Lab 09/19/19 13:32 Ordered MAGNESIUM Stat Lab 09/19/19 13:40 Completed NT PRO BNP Stat Lab 09/19/19 13:40 Completed Occult Blood, Other Screening Stat Lab 09/19/19 13:35 Uncollected PROTIME WITH INR Stat Lab 09/19/19 13:40 Completed PTT Stat Lab 09/19/19 13:40 Completed TROPONIN Q3H Lab 09/19/19 13:40 Completed TROPONIN Q3H Lab 09/19/19 17:00 Ordered TROPONIN Q3H Lab 09/19/19 20:00 Ordered TROPONIN Q3H Lab 09/19/19 23:00 Ordered TROPONIN Q3H Lab 09/20/19 02:00 Ordered UA W/RFX UR CULTURE Stat Lab 09/19/19 13:32 Uncollected VENOUS BLOOD GAS Urgent Lab 09/19/19 13:35 Ordered Transfer Order Routine Transfer 09/19/19 Ordered Medication Summary Generic Name Dose Route Start Last Admin Trade Name Freq PRN Reason Stop Dose Admin Furosemide 40 mg 09/19/19 19:00 09/19/19 14:55 Lasix 40 Mg/4 Ml IV 09/19/19 19:01 40 mg STAT ONE Administration Discontinued Medications Generic Name Dose Route Start Last Admin Trade Name Freq PRN Reason Stop Dose Admin Calcium Gluconate 1,000 mg 09/19/19 14:36 09/19/19 14:55 Calcium Gluconate 10% 1000 Mg IV 09/19/19 14:37 1,000 mg STAT ONE Administration Calcium Gluconate Confirm 09/19/19 14:44 Calcium Gluconate 10% 1000 Mg Administered 09/19/19 14:45 Dose 1,000 mg IV .STK-MED ONE Dextrose 50 ml 09/19/19 14:36 09/19/19 14:55 D50w 50 Ml Abboject IV 09/19/19 14:37 50 ml STAT ONE Administration Dextrose Confirm 09/19/19 14:46 D50w 50 Ml Abboject Administered 09/19/19 14:47 Dose 50 ml IV .STK-MED ONE Furosemide Confirm 09/19/19 14:46 Lasix 40 Mg/4 Ml Administered 09/19/19 14:47 Dose 40 mg .ROUTE .STK-MED ONE Insulin Human Regular 10 unit 09/19/19 14:36 09/19/19 14:55 Novolin R IV 09/19/19 14:37 10 unit STAT ONE Administration Insulin Human Regular Confirm 09/19/19 14:46 Novolin R Administered 09/19/19 14:47 Dose 10 unit .ROUTE .STK-MED ONE Sodium Bicarbonate 50 meq 09/19/19 14:36 09/19/19 14:55 Sodium Bicarbonate 50 Meq/50 Ml Abboject IV 09/19/19 14:37 50 meq STAT ONE Administration Sodium Bicarbonate Confirm 09/19/19 14:47 Sodium Bicarbonate 50 Meq/50 Ml Abboject Administered 09/19/19 14:48 Dose 50 meq IV .STK-MED ONE Lab/Rad Data: Laboratory Result Diagrams 09/19/19 13:40 09/19/19 13:40 Laboratory Results 09/19/19 09/19/19 09/19/19 Range/Units 13:40 13:40 13:40 WBC (4.0-10.5) K/mm3 RBC (4.1-5.6) M/mm3 Hgb (12.5-18.0) gm/dl Hct (42-50) % MCV (78-100) fl MCH (26-32) pg MCHC (32-36) g/dl RDW (11.5-14.0) % Plt Count (150-450) K/mm3 MPV (6-9.5) fl Gran % (36.0-66.0) % Eos # (Auto) (0-0.5) Absolute Lymphs (auto) (1.0-4.6) Absolute Monos (auto) (0.0-1.3) Lymphocytes % (24.0-44.0) % Monocytes % (0.0-12.0) % Eosinophils % (0.00-5.0) % Basophils % (0.0-0.4) % Absolute Granulocytes (1.4-6.9) Basophils # (0-0.4) PT 14.5 H (8.83-12.87) SECONDS INR 1.28 (0.8-3.0) APTT 31.1 (24.1-36.1) SECONDS Sodium 145 (137-145) mmol/L Potassium 7.0 H* (3.5-5.1) mmol/L Chloride 109 H (98-107) mmol/L Carbon Dioxide 21 L (22-30) mmol/L Anion Gap 21.1 H (5-15) MEQ/L BUN 66 H (9-20) mg/dL Creatinine 1.91 H (0.66-1.25) mg/dL Estimated GFR 36.3 ML/MIN Glucose 135 H (74-106) mg/dL Calcium 9.6 (8.4-10.2) mg/dL Magnesium 2.2 (1.6-2.3) mg/dL Total Bilirubin 0.50 (0.2-1.3) mg/dL AST 15 L (17-59) U/L ALT 14 (0-50) U/L Alkaline Phosphatase 59 (38-126) U/L Creatine Kinase 22 L (55-170) U/L Troponin I < 0.012 (0.000-0.034) ng/mL NT-Pro-B Natriuret Pep 5170 H (0-1800) pg/mL Serum Total Protein 6.8 (6.3-8.2) g/dL Albumin 4.0 (3.5-5.0) g/dL Amylase 90 (30-110) U/L Lipase 271 (23-300) U/L Slides for Path Review 11/03/19 Range/Units 13:40 WBC 6.1 (4.0-10.5) K/mm3 RBC 2.40 L (4.1-5.6) M/mm3 Hgb 4.8 L* (12.5-18.0) gm/dl Hct 17.5 L (42-50) % MCV 72.9 L (78-100) fl MCH 20.0 L (26-32) pg MCHC 27.4 L (32-36) g/dl RDW 19.8 H (11.5-14.0) % Plt Count 163 (150-450) K/mm3 MPV 11.1 H (6-9.5) fl Gran % 78.6 H (36.0-66.0) % Eos # (Auto) 0.03 (0-0.5) Absolute Lymphs (auto) 0.74 L (1.0-4.6) Absolute Monos (auto) 0.51 (0.0-1.3) Lymphocytes % 12.2 L (24.0-44.0) % Monocytes % 8.4 (0.0-12.0) % Eosinophils % 0.5 (0.00-5.0) % Basophils % 0.3 (0.0-0.4) % Absolute Granulocytes 4.79 (1.4-6.9) Basophils # 0.02 (0-0.4) PT (8.83-12.87) SECONDS INR (0.8-3.0) APTT (24.1-36.1) SECONDS Sodium (137-145) mmol/L Potassium (3.5-5.1) mmol/L Chloride (98-107) mmol/L Carbon Dioxide (22-30) mmol/L Anion Gap (5-15) MEQ/L BUN (9-20) mg/dL Creatinine (0.66-1.25) mg/dL Estimated GFR ML/MIN Glucose (74-106) mg/dL Calcium (8.4-10.2) mg/dL Magnesium (1.6-2.3) mg/dL Total Bilirubin (0.2-1.3) mg/dL AST (17-59) U/L ALT (0-50) U/L Alkaline Phosphatase (38-126) U/L Creatine Kinase (55-170) U/L Troponin I (0.000-0.034) ng/mL NT-Pro-B Natriuret Pep (0-1800) pg/mL Serum Total Protein (6.3-8.2) g/dL Albumin (3.5-5.0) g/dL Amylase (30-110) U/L Lipase (23-300) U/L Slides for Path Review YES - Progress Progress: unchanged Progress Note: 09/19/19 14:36 Patient is hemodynamically in good condition with rate-controlled atrial fibrillation in the 60s on the ekg monitor 09/19/19 14:41 Patient will be given IV insulin, IV calcium gluconate, IV sodium bicarbonate and IV D50 09/19/19 14:[address] Thomson, hospitalist at [facility], of the potassium of 7 and no changes on the ekg monitor in regards to no AV blocks, no QRS prolongation or any other arrhythmias besides rate controlled atrial fibrillation. Discussed with .: Audelia (@14:20, discussed the patient with Dr Thomson, patient's physician and hospitalist. Dr Thomson accepted the patient for full admission [facility] patient does not want hospice. Patient has a history of chronic ischemic colitis with start of a myelodysplastic syndrome possibly, contributing to the low hemoglobin) Will see patient in: hospital (full admit) Counseled pt/family regarding: lab results, diagnosis, need for follow-up, rad results - Departure Departure Disposition: In-patient Admission (at [facility] to telemetry) Clinical Impression: Acute on chronic blood loss anemia, Chronic ischemic colitis, enteritis, or enterocolitis, Hyperkalemia, Acute on chronic renal insufficiency, Essential hypertension, Generalized weakness Condition: Fair Critical Care Time: Yes Referrals: HOSPICE,DILLAN [Primary Care Provider] -
[2019-09-19 14:06] LABS: Absolute Neutrophil Ct (ANC) 4.79 (1.4-6.9); BASOPHIL % 0.3 % (0.0-0.4); Basophil (Absolute #) 0.02 (0-0.4); Eosinophil % 0.5 % (0.00-5.0); Eosinophil (Absolute #) 0.03 (0-0.5); Hematocrit 17.5 % (42-50); Lymphocyte (Absolute #) 0.74 (1.0-4.6); Lymphocytes % 12.2 % (24.0-44.0); Mean Cell Volume 72.9 fl (78-100); Mean Corpuscular Hgb Concent. 27.4 g/dl (32-36); Mean Platelet Volume 11.1 fl (6-9.5); Monocyte (Absolute #) 0.51 (0.0-1.3); Monocytes % 8.4 % (0.0-12.0); Neutrophil % 78.6 % (36.0-66.0); Platelet Count 163 K/mm3 (150-450); Red Cell Distribution Width 19.8 % (11.5-14.0); White Blood Count 6.1 K/mm3 (4.0-10.5)
[2019-09-19 14:13] LABS: Hemoglobin 4.8 gm/dl (12.5-18.0)
[2019-09-19 14:15] LABS: INR 1.28 (0.8-3.0); PROTIME 14.5 SECONDS (8.83-12.87)
[2019-09-19 14:16] LABS: PTT 31.1 SECONDS (24.1-36.1)
[2019-09-19 14:26] LABS: ANION GAP 21.1 MEQ/L (5-15); BILIRUBIN,TOTAL 0.5 mg/dL (0.2-1.3); Calcium 9.6 mg/dL (8.4-10.2); Creatinine 1 1.91 mg/dL (0.66-1.25); MAGNESIUM 2.2 mg/dL (1.6-2.3); Slide Review 1 YES; Total Protein 6.8 g/dL (6.3-8.2)
[2019-09-19] MEDS ORDERED: Calcium Gluconate 10% 1000 MG IV ONE ×2 (14:36→14:44)
[2019-09-19] MEDS ORDERED: NovoLIN R IV ONE (14:36)
[2019-09-19] MEDS ORDERED: SODIUM BICARBONATE 50 MEQ/50 ML ABBOJECT IV ONE ×2 (14:36→14:47)
[2019-09-19] MEDS ORDERED: D50W 50 ml Abboject IV ONE ×2 (14:36→14:46)
[2019-09-19] MEDS ORDERED: NovoLIN R ONE (14:46)
[2019-09-19] MEDS ORDERED: Lasix 40 MG/4 ML ONE (14:46)
[2019-09-19 15:15] LABS: ABO TYPING A; Antibody Screen NEGATIVE (NEGATIVE); RH TYPING POSITIVE
[2019-09-19 15:17] LABS: VBG BASE EXCESS -4.1 (-2.0-2.0); VBG HCO3- 21.7 meq/L (22-28); VBG O2 SATURATION 46.1 (95-100)
[2019-09-19 15:19] LABS: VBG HEMOGLOBIN 5.3; VBG pH 7.31 (7.32-7.42)
[2019-09-19 15:22] LABS: CROSS MATCH (PRBC) COMPATIBLE (COMPATIBLE)
[2019-09-19] MEDS ORDERED: TYLENOL 325 MG PO PRN (15:26)
[2019-09-19] MEDS ORDERED: Sodium Chloride 0.9% 1000 ML 1,000 ML ONE (16:09)
[2019-09-19] MEDS ORDERED: Sodium Chloride 0.9% 1000 ML 1,000 ML IV SCH (16:15)
[2019-09-19 17:40] LABS: Lactic Acid 5.1 (0.4-2.0)
[2019-09-19 18:54] LABS: Appearance CLEAR (CLEAR); Bacteria RARE /HPF (NEGATIVE); Bilirubin NEGATIVE (NEGATIVE); Blood NEGATIVE Ery/ul (0-5); Epithelial Cells RARE /HPF (FEW); Glucose NEGATIVE (NEGATIVE); Ketones NEGATIVE (NEGATIVE); Leukocyte Esterase NEGATIVE (NEGATIVE); Mucus SLIGHT /HPF (NEGATIVE); Nitrite NEGATIVE (NEGATIVE); Protein,Urine Dip NEGATIVE (Negative); Specific Gravity 1.008 (1.005-1.025); Urobilinogen NEGATIVE mg/dL (0-1)
[2019-09-19 18:55] LABS: RBC NONE SEEN /HPF (0-2)
[2019-09-19] MEDS ORDERED: Lasix 40 MG/4 ML IV ONE (19:00)
[2019-09-19] MEDS ORDERED: Glucophage 500 MG ONE (19:46)
[2019-09-19 20:13] LABS: Lactic Acid 4.2 (0.4-2.0)
[2019-09-19 20:40] LABS: ANION GAP 21.4 MEQ/L (5-15); BLOOD UREA NITROGEN 68 mg/dL (9-20); CHLORIDE 107 mmol/L (98-107); Calcium 9.7 mg/dL (8.4-10.2); Carbon Dioxide 22 mmol/L (22-30); Creatinine 1 1.89 mg/dL (0.66-1.25); Glucose 192 mg/dL (74-106); SODIUM 144 mmol/L (137-145)
[2019-09-19 20:47] LABS: Potassium 6.4 mmol/L (3.5-5.1); TROPONIN < 0.012 ng/mL (0.000-0.034)
[2019-09-19] MEDS: Apresoline 25 MG TABLET PO SCH (22:23)
[2019-09-19] MEDS: COREG 12.5 MG PO SCH (22:23)
[2019-09-19] MEDS: Zocor 10MG PO SCH (22:24)
[2019-09-19] MEDS: NovoLIN R SQ PRN (22:24)
[2019-09-19] MEDS: Pepcid 20 MG PO SCH (22:24)
[2019-09-19] MEDS: Lasix 40 MG/4 ML IV PRN (22:59)
[2019-09-19 23:22] LABS: Lactic Acid 2.2 (0.4-2.0)
[2019-09-20] MEDS: Lasix 40 MG/4 ML IV PRN ×2 (02:50→06:38)
[2019-09-20] MEDS ORDERED: Lasix 40 MG/4 ML ONE (06:34)
[2019-09-20 07:36] LABS: Hematocrit 27.7 % (42-50); Hemoglobin 8.4 gm/dl (12.5-18.0); Mean Cell Volume 77.4 fl (78-100); Mean Corpuscular Hgb Concent. 30.3 g/dl (32-36); Mean Platelet Volume 11.1 fl (6-9.5); Platelet Count 152 K/mm3 (150-450); Red Blood Count 3.58 M/mm3 (4.1-5.6); Red Cell Distribution Width 22.2 % (11.5-14.0); White Blood Count 6.4 K/mm3 (4.0-10.5)
[2019-09-20] MEDS ORDERED: Colace 100 MG PO PRN (08:07)
[2019-09-20 08:16] LABS: Mean Corpuscular Hemoglobin 23.4 pg (26-32)
[2019-09-20] MEDS: AMARYL 4 MG PO SCH (08:25)
[2019-09-20] MEDS: Glucophage 500 MG PO SCH ×2 (08:25→17:25)
--- NOTE | 2019-09-20 08:45 | XRAY ---
Indication: Weakness. Transfusions. Comparison: One day earlier. Portable chest unchanged again demonstrating cardiomegaly and small right base effusion/atelectasis. No new cardiopulmonary abnormalities.
[2019-09-20 09:09] LABS: Slide Review YES
--- NOTE | 2019-09-20 09:23 | XRAY ---
Indication: Possible sepsis. Comparison: March 04, 2019. Portable chest again demonstrates cardiomegaly. Query new tiny right base effusion/atelectasis. Remaining heart, lungs, and bony thorax unremarkable.
[2019-09-20] MEDS: Pepcid 20 MG PO SCH ×2 (09:26→22:03)
[2019-09-20] MEDS: COREG 12.5 MG PO SCH ×2 (09:26→22:03)
[2019-09-20] MEDS: Apresoline 25 MG TABLET PO SCH ×4 (09:26→22:03)
[2019-09-20] MEDS: Protonix 40MG Tablet PO SCH (09:27)
[2019-09-20 09:31] LABS: Lactic Acid 2.2 (0.4-2.0)
[2019-09-20] MEDS ORDERED: Catapres-TTS 1 PATCH TD SCH (10:00)
[2019-09-20] MEDS: NovoLIN R SQ PRN ×3 (12:19→23:05)
--- NOTE | 2019-09-20 12:49 | PCM.HP ---
History of Present Illness - Chief Complaint Chief Complaint: Acute Blood Anemia, Hyperkalemia, HTN, Acute on Chronic Renal Insufficiency History of Present Illness: is a 79 year old male.Patient is a hospice patient over the past 6 months due to multiple conditions relating to the cardiac, pulmonary and gastrointestinal problems. He has had increasing generalized weakness over the past week. Patient has a history of gastrointestinal bleeds and over multiple months he's had black stools, which has increased over the past week. The patient is usually ambulatory, but over this past week he has not moved around very much do to having increasing generalized weakness. Patient does not have any focal neurologic deficits, change in speech, change in vision, or any facial droop or any perceived loss of sensation. Timing/Duration: gradual onset, worse (over the past week) Severity: severe Modifying Factors: Worsens With: movement Associated Symptoms: loss of appetite, weakness (generalized), No nausea, No vomiting, No abdominal pain, No shortness of breath, No heartburn, No diaphoresis, No cough, No chills, No chest pain, No fever, No headaches, No malaise, No rash, No syncope, No seizure - Review of Systems Constitutional: No Fever, No Chills Eyes: No Symptoms Ears, Nose, & Throat: No Symptoms Respiratory: No Cough, No Short Of Breath Cardiac: No Chest Pain, No Edema, No Syncope Abdominal/Gastrointestinal: No Abdominal Pain, No Nausea, No Vomiting, No Diarrhea Genitourinary Symptoms: No Dysuria Musculoskeletal: No Back Pain, No Neck Pain Skin: No Rash Neurological: No Dizziness, No Focal Weakness, No Sensory Changes Psychological: No Symptoms Endocrine: No Symptoms Hematologic/Lymphatic: No Symptoms Immunological/Allergic: No Symptoms Medications & Allergies Home Medications: Home Medication List Carvedilol 12.5 mg [Coreg 12.5 mg] 12.5 mg PO BID 05/01/15 [History Confirmed 09/19/19] Atorvastatin Calcium [Lipitor] 10 mg PO HS 04/24/17 [History Confirmed 09/19/19] PANTOPRAZOLE 40 mg Tablet [Protonix 40MG Tablet] 40 mg PO DAILY 04/24/17 [ History Confirmed 09/19/19] Clonidine [Catapres-Tts 1] 0.1 mg TD WEEKLY 01/02/19 [History Confirmed 09/19/19 ] Metformin HCl [Glucophage] 1,000 mg PO BID 01/02/19 [History Confirmed 09/19/19] Potassium Chloride 10 Meq Tab* [Klor Con 10 MEQ] 20 meq PO BID 01/02/19 [ History Confirmed 09/19/19] Glimepiride 4 mg [Amaryl 4 mg] 4 mg PO DAILY 03/04/19 [History Confirmed 09/19/19] Docusate Sodium 100 mg [Colace 100 MG] 100 mg PO DAILY PRN PRN 09/19/19 [ History Confirmed 09/19/19] HydrALAzine HCL 25 MG TAB [Apresoline 25 MG TABLET] 25 mg PO QID 09/19/19 [History Confirmed 09/19/19] Allergies/Adverse Reactions: Allergies Allergy/AdvReac Type Severity Reaction Status Date / Time No Known Drug Allergies Allergy Verified 09/19/19 13:39 - Past Medical History Past Medical History: Yes Neurological History: Stroke ENT History: Cataracts, Other Cardiac History: Arrhythmia, High Cholesterol, Hypertension, Peripheral Vascular Disease Respiratory History: COPD Endocrine Medical History: Diabetes Type II Musculoskelatal History: No Pertinent History GI Medical History: Hemorrhoids, Other History: Renal Disease Pyscho-Social History: No Pertinent History Male Reproductive Disorders: Prostate Problems Comment: cellulitis. kadeem cataracts. no polyps , but a cluster of veins, enlarge prostate.shingles. dermatitis. Myositis. - Past Surgical History Past Surgical History: Yes Neuro Surgical History: No Pertinent History Cardiac History: Other Respiratory Surgery: No Pertinent History GI Surgical History: No Pertinent History Genitourinary Surgical Hx: No Pertinent History Musculskeletal Surgical Hx: Orthopedic Surgery Male Surgical History: No Pertinent History Other Surgical History: kadeem knee surgery. colonoscopy. 3 aortic stents - Social History Smoking Status: Former smoker How long have you smoked: 40 Exposure to second hand smoke: No Alcohol: None Drug Use: none - Physical Exam Vital Signs: Vital Signs - 24 hr Temp Pulse Resp BP Pulse Ox 09/20/19 12:14 97.2 F 59 L 20 151/64 98 09/20/19 08:57 98 09/20/19 07:01 97.5 F 74 20 129/81 98 09/20/19 03:54 98.0 F 56 L 18 166/73 99 09/20/19 00:00 98.6 F 60 20 151/70 100 09/19/19 20:26 99 09/19/19 19:16 97.4 F 70 22 158/75 98 09/19/19 16:03 97.4 F 67 22 160/77 90 L 09/19/19 15:00 90 L 09/19/19 14:34 67 26 H 160/77 100 09/19/19 14:33 100 09/19/19 13:35 97.4 F 70 20 142/67 100 09/19/19 13:27 97.0 F 73 22 136/62 90 L Oxygen-Last 24 hours O2 Percentage 4 Liters = 36% O2 Percentage 2 Liters = 28% O2 Percentage 4 Liters = 36% O2 Percentage 4 Liters = 36% O2 Percentage 4 Liters = 36% O2 Percentage 4 Liters = 36% O2 Percentage 4 Liters = 36% O2 Percentage 4 Liters = 36% General Appearance: no apparent distress, alert Neurologic Exam: alert, oriented x 3, cooperative, normal mood/affect, nml cerebellar function, nml station & gait, sensation nml, No motor deficits Eye Exam: PERRL/EOMI, eyes nml inspection Ears, Nose, Throat Exam: normal ENT inspection, TMs normal, pharynx normal, moist mucous membranes Neck Exam: normal inspection, non-tender, supple, full range of motion Respiratory Exam: normal breath sounds, lungs clear, No respiratory distress Cardiovascular Exam: regular rate/rhythm, normal heart sounds, normal peripheral pulses Gastrointestinal/Abdomen Exam: soft, normal bowel sounds, No tenderness, No mass Back Exam: normal inspection, normal range of motion, No CVA tenderness, No vertebral tenderness Extremity Exam: normal inspection, normal range of motion, pelvis stable Skin Exam: normal color, warm, dry, No rash Lymphatic Exam: No adenopathy Results - Labs Lab/Micro Results: Accuchecks Date 09/20/19 Date 09/20/19 Date 09/19/19 Date 09/19/19 Time 11:30 Time 07:30 Time 22:00 Time 16:30 Accucheck Value: 249 Accucheck Value: 66 Accucheck Value: 135 Lab Results-Last 24 Hours 09/19/19 09/19/19 09/19/19 Range/Units 13:40 13:40 13:40 WBC 6.1 (4.0-10.5) K/mm3 RBC 2.40 L (4.1-5.6) M/mm3 Hgb 4.8 L* (12.5-18.0) gm/dl Hct 17.5 L (42-50) % MCV 72.9 L (78-100) fl MCH 20.0 L (26-32) pg MCHC 27.4 L (32-36) g/dl RDW 19.8 H (11.5-14.0) % Plt Count 163 (150-450) K/mm3 MPV 11.1 H (6-9.5) fl Gran % 78.6 H (36.0-66.0) % Eos # (Auto) 0.03 (0-0.5) Absolute Lymphs (auto) 0.74 L (1.0-4.6) Absolute Monos (auto) 0.51 (0.0-1.3) Lymphocytes % 12.2 L (24.0-44.0) % Monocytes % 8.4 (0.0-12.0) % Eosinophils % 0.5 (0.00-5.0) % Basophils % 0.3 (0.0-0.4) % Absolute Granulocytes 4.79 (1.4-6.9) Basophils # 0.02 (0-0.4) PT 14.5 H (8.83-12.87) SECONDS INR 1.28 (0.8-3.0) APTT 31.1 (24.1-36.1) SECONDS pO2/FiO2 Ratio % VBG pH (7.32-7.42) VBG pCO2 at Pat Temp (42-55) mm/Hg VBG pO2 at Pat Temp (25-40) mm/Hg VBG HCO3 (22-28) meq/L VBG O2 Sat (Stan) (95-100) VBG Base Excess (-2.0-2.0) VBG Hemoglobin VBG Carboxyhemoglobin (0.0-6.9) % T HGB POC Potassium (3.5-5.1) Sodium 145 (137-145) mmol/L Potassium 7.0 H* (3.5-5.1) mmol/L Chloride 109 H (98-107) mmol/L Carbon Dioxide 21 L (22-30) mmol/L Anion Gap 21.1 H (5-15) MEQ/L BUN 66 H (9-20) mg/dL Creatinine 1.91 H (0.66-1.25) mg/dL Estimated GFR 36.3 ML/MIN Glucose 135 H (74-106) mg/dL Lactic Acid (0.4-2.0) Calcium 9.6 (8.4-10.2) mg/dL Magnesium 2.2 (1.6-2.3) mg/dL Total Bilirubin 0.50 (0.2-1.3) mg/dL AST 15 L (17-59) U/L ALT 14 (0-50) U/L Alkaline Phosphatase 59 (38-126) U/L Creatine Kinase 22 L (55-170) U/L Troponin I (0.000-0.034) ng/mL NT-Pro-B Natriuret Pep 5170 H (0-1800) pg/mL Serum Total Protein 6.8 (6.3-8.2) g/dL Albumin 4.0 (3.5-5.0) g/dL Amylase 90 (30-110) U/L Lipase 271 (23-300) U/L Urine Color (YELLOW) Urine Appearance (CLEAR) Urine pH (5-6) Ur Specific Hitchcock (1.005-1.025) Urine Protein (Negative) Urine Ketones (NEGATIVE) Urine Blood (0-5) Crescencio/ul Urine Nitrite (NEGATIVE) Urine Bilirubin (NEGATIVE) Urine Urobilinogen (0-1) mg/dL Ur Leukocyte Esterase (NEGATIVE) Urine WBC (Auto) (0-5) /HPF Urine RBC (Auto) (0-2) /HPF U Epithel Cells (Auto) (FEW) /HPF Urine Bacteria (Auto) (NEGATIVE) /HPF Urine Mucus (Auto) (NEGATIVE) /HPF Urine Culture Reflexed (NO) Urine Glucose (NEGATIVE) mg/dL Slides for Path Review YES ABO Group Rh Factor Antibody Screen (NEGATIVE) Crossmatch (COMPATIBLE) 09/19/19 09/19/19 09/19/19 Range/Units 13:40 13:40 13:40 WBC (4.0-10.5) K/mm3 RBC (4.1-5.6) M/mm3 Hgb (12.5-18.0) gm/dl Hct (42-50) % MCV (78-100) fl MCH (26-32) pg MCHC (32-36) g/dl RDW (11.5-14.0) % Plt Count (150-450) K/mm3 MPV (6-9.5) fl Gran % (36.0-66.0) % Eos # (Auto) (0-0.5) Absolute Lymphs (auto) (1.0-4.6) Absolute Monos (auto) (0.0-1.3) Lymphocytes % (24.0-44.0) % Monocytes % (0.0-12.0) % Eosinophils % (0.00-5.0) % Basophils % (0.0-0.4) % Absolute Granulocytes (1.4-6.9) Basophils # (0-0.4) PT (8.83-12.87) SECONDS INR (0.8-3.0) APTT (24.1-36.1) SECONDS pO2/FiO2 Ratio % VBG pH (7.32-7.42) VBG pCO2 at Pat Temp (42-55) mm/Hg VBG pO2 at Pat Temp (25-40) mm/Hg VBG HCO3 (22-28) meq/L VBG O2 Sat (Stan) (95-100) VBG Base Excess (-2.0-2.0) VBG Hemoglobin VBG Carboxyhemoglobin (0.0-6.9) % T HGB POC Potassium (3.5-5.1) Sodium (137-145) mmol/L Potassium (3.5-5.1) mmol/L Chloride (98-107) mmol/L Carbon Dioxide (22-30) mmol/L Anion Gap (5-15) MEQ/L BUN (9-20) mg/dL Creatinine (0.66-1.25) mg/dL Estimated GFR ML/MIN Glucose (74-106) mg/dL Lactic Acid (0.4-2.0) Calcium (8.4-10.2) mg/dL Magnesium (1.6-2.3) mg/dL Total Bilirubin (0.2-1.3) mg/dL AST (17-59) U/L ALT (0-50) U/L Alkaline Phosphatase (38-126) U/L Creatine Kinase (55-170) U/L Troponin I < 0.012 (0.000-0.034) ng/mL NT-Pro-B Natriuret Pep (0-1800) pg/mL Serum Total Protein (6.3-8.2) g/dL Albumin (3.5-5.0) g/dL Amylase (30-110) U/L Lipase (23-300) U/L Urine Color (YELLOW) Urine Appearance (CLEAR) Urine pH (5-6) Ur Specific Hitchcock (1.005-1.025) Urine Protein (Negative) Urine Ketones (NEGATIVE) Urine Blood (0-5) Crescencio/ul Urine Nitrite (NEGATIVE) Urine Bilirubin (NEGATIVE) Urine Urobilinogen (0-1) mg/dL Ur Leukocyte Esterase (NEGATIVE) Urine WBC (Auto) (0-5) /HPF Urine RBC (Auto) (0-2) /HPF U Epithel Cells (Auto) (FEW) /HPF Urine Bacteria (Auto) (NEGATIVE) /HPF Urine Mucus (Auto) (NEGATIVE) /HPF Urine Culture Reflexed (NO) Urine Glucose (NEGATIVE) mg/dL Slides for Path Review ABO Group A Rh Factor POSITIVE Antibody Screen NEGATIVE (NEGATIVE) Crossmatch COMPATIBLE (COMPATIBLE) 09/19/19 09/19/19 09/19/19 Range/Units 13:40 13:40 13:40 WBC (4.0-10.5) K/mm3 RBC (4.1-5.6) M/mm3 Hgb (12.5-18.0) gm/dl Hct (42-50) % MCV (78-100) fl MCH (26-32) pg MCHC (32-36) g/dl RDW (11.5-14.0) % Plt Count (150-450) K/mm3 MPV (6-9.5) fl Gran % (36.0-66.0) % Eos # (Auto) (0-0.5) Absolute Lymphs (auto) (1.0-4.6) Absolute Monos (auto) (0.0-1.3) Lymphocytes % (24.0-44.0) % Monocytes % (0.0-12.0) % Eosinophils % (0.00-5.0) % Basophils % (0.0-0.4) % Absolute Granulocytes (1.4-6.9) Basophils # (0-0.4) PT (8.83-12.87) SECONDS INR (0.8-3.0) APTT (24.1-36.1) SECONDS pO2/FiO2 Ratio % VBG pH (7.32-7.42) VBG pCO2 at Pat Temp (42-55) mm/Hg VBG pO2 at Pat Temp (25-40) mm/Hg VBG HCO3 (22-28) meq/L VBG O2 Sat (Stan) (95-100) VBG Base Excess (-2.0-2.0) VBG Hemoglobin VBG Carboxyhemoglobin (0.0-6.9) % T HGB POC Potassium (3.5-5.1) Sodium (137-145) mmol/L Potassium (3.5-5.1) mmol/L Chloride (98-107) mmol/L Carbon Dioxide (22-30) mmol/L Anion Gap (5-15) MEQ/L BUN (9-20) mg/dL Creatinine (0.66-1.25) mg/dL Estimated GFR ML/MIN Glucose (74-106) mg/dL Lactic Acid (0.4-2.0) Calcium (8.4-10.2) mg/dL Magnesium (1.6-2.3) mg/dL Total Bilirubin (0.2-1.3) mg/dL AST (17-59) U/L ALT (0-50) U/L Alkaline Phosphatase (38-126) U/L Creatine Kinase (55-170) U/L Troponin I (0.000-0.034) ng/mL NT-Pro-B Natriuret Pep (0-1800) pg/mL Serum Total Protein (6.3-8.2) g/dL Albumin (3.5-5.0) g/dL Amylase (30-110) U/L Lipase (23-300) U/L Urine Color (YELLOW) Urine Appearance (CLEAR) Urine pH (5-6) Ur Specific Hitchcock (1.005-1.025) Urine Protein (Negative) Urine Ketones (NEGATIVE) Urine Blood (0-5) Crescencio/ul Urine Nitrite (NEGATIVE) Urine Bilirubin (NEGATIVE) Urine Urobilinogen (0-1) mg/dL Ur Leukocyte Esterase (NEGATIVE) Urine WBC (Auto) (0-5) /HPF Urine RBC (Auto) (0-2) /HPF U Epithel Cells (Auto) (FEW) /HPF Urine Bacteria (Auto) (NEGATIVE) /HPF Urine Mucus (Auto) (NEGATIVE) /HPF Urine Culture Reflexed (NO) Urine Glucose (NEGATIVE) mg/dL Slides for Path Review ABO Group Rh Factor Antibody Screen (NEGATIVE) Crossmatch COMPATIBLE COMPATIBLE C (COMPATIBLE) 09/19/19 09/19/19 09/19/19 Range/Units 15:10 15:10 17:10 WBC (4.0-10.5) K/mm3 RBC (4.1-5.6) M/mm3 Hgb (12.5-18.0) gm/dl Hct (42-50) % MCV (78-100) fl MCH (26-32) pg MCHC (32-36) g/dl RDW (11.5-14.0) % Plt Count (150-450) K/mm3 MPV (6-9.5) fl Gran % (36.0-66.0) % Eos # (Auto) (0-0.5) Absolute Lymphs (auto) (1.0-4.6) Absolute Monos (auto) (0.0-1.3) Lymphocytes % (24.0-44.0) % Monocytes % (0.0-12.0) % Eosinophils % (0.00-5.0) % Basophils % (0.0-0.4) % Absolute Granulocytes (1.4-6.9) Basophils # (0-0.4) PT (8.83-12.87) SECONDS INR (0.8-3.0) APTT (24.1-36.1) SECONDS pO2/FiO2 Ratio 21.0 % VBG pH 7.31 L (7.32-7.42) VBG pCO2 at Pat Temp 43 (42-55) mm/Hg VBG pO2 at Pat Temp 25 (25-40) mm/Hg VBG HCO3 21.7 L (22-28) meq/L VBG O2 Sat (Stan) 46.1 L (95-100) VBG Base Excess -4.1 L (-2.0-2.0) VBG Hemoglobin 5.3 L* VBG Carboxyhemoglobin 5.0 (0.0-6.9) % T HGB POC Potassium 7.0 H* (3.5-5.1) Sodium (137-145) mmol/L Potassium (3.5-5.1) mmol/L Chloride (98-107) mmol/L Carbon Dioxide (22-30) mmol/L Anion Gap (5-15) MEQ/L BUN (9-20) mg/dL Creatinine (0.66-1.25) mg/dL Estimated GFR ML/MIN Glucose (74-106) mg/dL Lactic Acid 5.1 H (0.4-2.0) Calcium (8.4-10.2) mg/dL Magnesium (1.6-2.3) mg/dL Total Bilirubin (0.2-1.3) mg/dL AST (17-59) U/L ALT (0-50) U/L Alkaline Phosphatase (38-126) U/L Creatine Kinase (55-170) U/L Troponin I (0.000-0.034) ng/mL NT-Pro-B Natriuret Pep (0-1800) pg/mL Serum Total Protein (6.3-8.2) g/dL Albumin (3.5-5.0) g/dL Amylase (30-110) U/L Lipase (23-300) U/L Urine Color STRAW (YELLOW) Urine Appearance CLEAR (CLEAR) Urine pH 5.0 (5-6) Ur Specific Hitchcock 1.008 (1.005-1.025) Urine Protein NEGATIVE (Negative) Urine Ketones NEGATIVE (NEGATIVE) Urine Blood NEGATIVE (0-5) Crescencio/ul Urine Nitrite NEGATIVE (NEGATIVE) Urine Bilirubin NEGATIVE (NEGATIVE) Urine Urobilinogen NEGATIVE (0-1) mg/dL Ur Leukocyte Esterase NEGATIVE (NEGATIVE) Urine WBC (Auto) NONE (0-5) /HPF Urine RBC (Auto) NONE SEEN (0-2) /HPF U Epithel Cells (Auto) RARE (FEW) /HPF Urine Bacteria (Auto) RARE (NEGATIVE) /HPF Urine Mucus (Auto) SLIGHT (NEGATIVE) /HPF Urine Culture Reflexed NO (NO) Urine Glucose NEGATIVE (NEGATIVE) mg/dL Slides for Path Review ABO Group Rh Factor Antibody Screen (NEGATIVE) Crossmatch (COMPATIBLE) 09/19/19 09/19/19 09/19/19 Range/Units 20:07 20:10 23:15 WBC (4.0-10.5) K/mm3 RBC (4.1-5.6) M/mm3 Hgb (12.5-18.0) gm/dl Hct (42-50) % MCV (78-100) fl MCH (26-32) pg MCHC (32-36) g/dl RDW (11.5-14.0) % Plt Count (150-450) K/mm3 MPV (6-9.5) fl Gran % (36.0-66.0) % Eos # (Auto) (0-0.5) Absolute Lymphs (auto) (1.0-4.6) Absolute Monos (auto) (0.0-1.3) Lymphocytes % (24.0-44.0) % Monocytes % (0.0-12.0) % Eosinophils % (0.00-5.0) % Basophils % (0.0-0.4) % Absolute Granulocytes (1.4-6.9) Basophils # (0-0.4) PT (8.83-12.87) SECONDS INR (0.8-3.0) APTT (24.1-36.1) SECONDS pO2/FiO2 Ratio % VBG pH (7.32-7.42) VBG pCO2 at Pat Temp (42-55) mm/Hg VBG pO2 at Pat Temp (25-40) mm/Hg VBG HCO3 (22-28) meq/L VBG O2 Sat (Stan) (95-100) VBG Base Excess (-2.0-2.0) VBG Hemoglobin VBG Carboxyhemoglobin (0.0-6.9) % T HGB POC Potassium (3.5-5.1) Sodium 144 (137-145) mmol/L Potassium 6.4 H* (3.5-5.1) mmol/L Chloride 107 (98-107) mmol/L Carbon Dioxide 22 (22-30) mmol/L Anion Gap 21.4 H (5-15) MEQ/L BUN 68 H (9-20) mg/dL Creatinine 1.89 H (0.66-1.25) mg/dL Estimated GFR 36.7 ML/MIN Glucose 192 H (74-106) mg/dL Lactic Acid 4.2 H 2.2 H (0.4-2.0) Calcium 9.7 (8.4-10.2) mg/dL Magnesium (1.6-2.3) mg/dL Total Bilirubin (0.2-1.3) mg/dL AST (17-59) U/L ALT (0-50) U/L Alkaline Phosphatase (38-126) U/L Creatine Kinase (55-170) U/L Troponin I < 0.012 (0.000-0.034) ng/mL NT-Pro-B Natriuret Pep (0-1800) pg/mL Serum Total Protein (6.3-8.2) g/dL Albumin (3.5-5.0) g/dL Amylase (30-110) U/L Lipase (23-300) U/L Urine Color (YELLOW) Urine Appearance (CLEAR) Urine pH (5-6) Ur Specific Hitchcock (1.005-1.025) Urine Protein (Negative) Urine Ketones (NEGATIVE) Urine Blood (0-5) Crescencio/ul Urine Nitrite (NEGATIVE) Urine Bilirubin (NEGATIVE) Urine Urobilinogen (0-1) mg/dL Ur Leukocyte Esterase (NEGATIVE) Urine WBC (Auto) (0-5) /HPF Urine RBC (Auto) (0-2) /HPF U Epithel Cells (Auto) (FEW) /HPF Urine Bacteria (Auto) (NEGATIVE) /HPF Urine Mucus (Auto) (NEGATIVE) /HPF Urine Culture Reflexed (NO) Urine Glucose (NEGATIVE) mg/dL Slides for Path Review ABO Group Rh Factor Antibody Screen (NEGATIVE) Crossmatch (COMPATIBLE) 09/19/19 09/20/19 09/20/19 Range/Units 23:17 02:37 07:20 WBC 6.4 (4.0-10.5) K/mm3 RBC 3.58 L (4.1-5.6) M/mm3 Hgb 8.4 L D (12.5-18.0) gm/dl Hct 27.7 L (42-50) % MCV 77.4 L D (78-100) fl MCH 23.4 L (26-32) pg MCHC 30.3 L (32-36) g/dl RDW 22.2 H (11.5-14.0) % Plt Count 152 (150-450) K/mm3 MPV 11.1 H (6-9.5) fl Gran % (36.0-66.0) % Eos # (Auto) (0-0.5) Absolute Lymphs (auto) (1.0-4.6) Absolute Monos (auto) (0.0-1.3) Lymphocytes % (24.0-44.0) % Monocytes % (0.0-12.0) % Eosinophils % (0.00-5.0) % Basophils % (0.0-0.4) % Absolute Granulocytes (1.4-6.9) Basophils # (0-0.4) PT (8.83-12.87) SECONDS INR (0.8-3.0) APTT (24.1-36.1) SECONDS pO2/FiO2 Ratio % VBG pH (7.32-7.42) VBG pCO2 at Pat Temp (42-55) mm/Hg VBG pO2 at Pat Temp (25-40) mm/Hg VBG HCO3 (22-28) meq/L VBG O2 Sat (Stan) (95-100) VBG Base Excess (-2.0-2.0) VBG Hemoglobin VBG Carboxyhemoglobin (0.0-6.9) % T HGB POC Potassium (3.5-5.1) Sodium (137-145) mmol/L Potassium (3.5-5.1) mmol/L Chloride (98-107) mmol/L Carbon Dioxide (22-30) mmol/L Anion Gap (5-15) MEQ/L BUN (9-20) mg/dL Creatinine (0.66-1.25) mg/dL Estimated GFR ML/MIN Glucose (74-106) mg/dL Lactic Acid (0.4-2.0) Calcium (8.4-10.2) mg/dL Magnesium (1.6-2.3) mg/dL Total Bilirubin (0.2-1.3) mg/dL AST (17-59) U/L ALT (0-50) U/L Alkaline Phosphatase (38-126) U/L Creatine Kinase (55-170) U/L Troponin I 0.043 H* 0.098 H* (0.000-0.034) ng/mL NT-Pro-B Natriuret Pep (0-1800) pg/mL Serum Total Protein (6.3-8.2) g/dL Albumin (3.5-5.0) g/dL Amylase (30-110) U/L Lipase (23-300) U/L Urine Color (YELLOW) Urine Appearance (CLEAR) Urine pH (5-6) Ur Specific Hitchcock (1.005-1.025) Urine Protein (Negative) Urine Ketones (NEGATIVE) Urine Blood (0-5) Crescencio/ul Urine Nitrite (NEGATIVE) Urine Bilirubin (NEGATIVE) Urine Urobilinogen (0-1) mg/dL Ur Leukocyte Esterase (NEGATIVE) Urine WBC (Auto) (0-5) /HPF Urine RBC (Auto) (0-2) /HPF U Epithel Cells (Auto) (FEW) /HPF Urine Bacteria (Auto) (NEGATIVE) /HPF Urine Mucus (Auto) (NEGATIVE) /HPF Urine Culture Reflexed (NO) Urine Glucose (NEGATIVE) mg/dL Slides for Path Review YES ABO Group Rh Factor Antibody Screen (NEGATIVE) Crossmatch (COMPATIBLE) 09/20/19 Range/Units 09:25 WBC (4.0-10.5) K/mm3 RBC (4.1-5.6) M/mm3 Hgb (12.5-18.0) gm/dl Hct (42-50) % MCV (78-100) fl MCH (26-32) pg MCHC (32-36) g/dl RDW (11.5-14.0) % Plt Count (150-450) K/mm3 MPV (6-9.5) fl Gran % (36.0-66.0) % Eos # (Auto) (0-0.5) Absolute Lymphs (auto) (1.0-4.6) Absolute Monos (auto) (0.0-1.3) Lymphocytes % (24.0-44.0) % Monocytes % (0.0-12.0) % Eosinophils % (0.00-5.0) % Basophils % (0.0-0.4) % Absolute Granulocytes (1.4-6.9) Basophils # (0-0.4) PT (8.83-12.87) SECONDS INR (0.8-3.0) APTT (24.1-36.1) SECONDS pO2/FiO2 Ratio % VBG pH (7.32-7.42) VBG pCO2 at Pat Temp (42-55) mm/Hg VBG pO2 at Pat Temp (25-40) mm/Hg VBG HCO3 (22-28) meq/L VBG O2 Sat (Stan) (95-100) VBG Base Excess (-2.0-2.0) VBG Hemoglobin VBG Carboxyhemoglobin (0.0-6.9) % T HGB POC Potassium (3.5-5.1) Sodium (137-145) mmol/L Potassium (3.5-5.1) mmol/L Chloride (98-107) mmol/L Carbon Dioxide (22-30) mmol/L Anion Gap (5-15) MEQ/L BUN (9-20) mg/dL Creatinine (0.66-1.25) mg/dL Estimated GFR ML/MIN Glucose (74-106) mg/dL Lactic Acid 2.2 H (0.4-2.0) Calcium (8.4-10.2) mg/dL Magnesium (1.6-2.3) mg/dL Total Bilirubin (0.2-1.3) mg/dL AST (17-59) U/L ALT (0-50) U/L Alkaline Phosphatase (38-126) U/L Creatine Kinase (55-170) U/L Troponin I (0.000-0.034) ng/mL NT-Pro-B Natriuret Pep (0-1800) pg/mL Serum Total Protein (6.3-8.2) g/dL Albumin (3.5-5.0) g/dL Amylase (30-110) U/L Lipase (23-300) U/L Urine Color (YELLOW) Urine Appearance (CLEAR) Urine pH (5-6) Ur Specific Hitchcock (1.005-1.025) Urine Protein (Negative) Urine Ketones (NEGATIVE) Urine Blood (0-5) Crescencio/ul Urine Nitrite (NEGATIVE) Urine Bilirubin (NEGATIVE) Urine Urobilinogen (0-1) mg/dL Ur Leukocyte Esterase (NEGATIVE) Urine WBC (Auto) (0-5) /HPF Urine RBC (Auto) (0-2) /HPF U Epithel Cells (Auto) (FEW) /HPF Urine Bacteria (Auto) (NEGATIVE) /HPF Urine Mucus (Auto) (NEGATIVE) /HPF Urine Culture Reflexed (NO) Urine Glucose (NEGATIVE) mg/dL Slides for Path Review ABO Group Rh Factor Antibody Screen (NEGATIVE) Crossmatch (COMPATIBLE) Accuchecks Date 09/20/19 Date 09/20/19 Date 09/19/19 Date 09/19/19 Time 11:30 Time 07:30 Time 22:00 Time 16:30 Accucheck Value: 249 Accucheck Value: 66 Accucheck Value: 135 - Radiology Impressions Radiology Exams & Impressions: Radiology Procedures Category Date Time Status CHEST 1 VIEW (PORTABLE) Routine Exams 09/20/19 08:00 Completed CHEST 1 VIEW (PORTABLE) Stat Exams 09/19/19 13:34 Completed - Other Procedures and Tests Respiratory Therapy 09/19/19 15:26 EKG Oxygen Nasal Cannula 3 lpm Assessment/Plan (1) Acute on chronic blood loss anemia Current Visit: Yes Status: Acute Assessment & Plan: s/p 3 units of blood transfusion Code(s): D62 - ACUTE POSTHEMORRHAGIC ANEMIA (2) Acute on chronic renal insufficiency Current Visit: Yes Status: Acute Code(s): N28.9 - DISORDER OF KIDNEY AND URETER, UNSPECIFIED; N18.9 - CHRONIC KIDNEY DISEASE, UNSPECIFIED (3) Essential hypertension Current Visit: Yes Status: Acute Code(s): I10 - ESSENTIAL (PRIMARY) HYPERTENSION (4) Generalized weakness Current Visit: Yes Status: Acute Code(s): R53.1 - WEAKNESS (5) Hyperkalemia Current Visit: Yes Status: Acute Code(s): E87.5 - HYPERKALEMIA (6) Chronic ischemic colitis, enteritis, or enterocolitis Current Visit: Yes Status: Chronic Code(s): K55.1 - CHRONIC VASCULAR DISORDERS OF INTESTINE (7) Anemia associated with chronic renal failure Current Visit: No Status: Acute Code(s): N18.9 - CHRONIC KIDNEY DISEASE, UNSPECIFIED; D63.1 - ANEMIA IN CHRONIC KIDNEY DISEASE (8) CAD (coronary artery disease) Current Visit: No Status: Acute Code(s): I25.10 - ATHSCL HEART DISEASE OF [place] CORONARY ARTERY W/O ANG PCTRS (9) Atrial fibrillation Current Visit: No Status: Chronic Qualifiers: Code(s): I48.91 - UNSPECIFIED ATRIAL FIBRILLATION
[2019-09-20] MEDS ORDERED: MEDICATION INTERVENTION MC SCH (18:45)
[2019-09-20 19:23] LABS: CREATININE,URINE RANDOM 34.2 MG/DL
[2019-09-20 19:26] LABS: Appearance CLEAR (CLEAR); Bilirubin NEGATIVE (NEGATIVE); Blood NEGATIVE Ery/ul (0-5); Glucose NEGATIVE (NEGATIVE); Hyaline Casts 0-2 /LPF (0-2); Ketones NEGATIVE (NEGATIVE); Leukocyte Esterase NEGATIVE (NEGATIVE); Mucus SLIGHT /HPF (NEGATIVE); Nitrite NEGATIVE (NEGATIVE); Protein,Urine Dip NEGATIVE (Negative); Specific Gravity 1.011 (1.005-1.025); Urobilinogen NEGATIVE mg/dL (0-1)
[2019-09-20] MEDS: Zocor 10MG PO SCH (22:03)
[2019-09-20] MEDS: Flomax 0.4 MG PO SCH (22:04)
[2019-09-21 04:55] LABS: Absolute Neutrophil Ct (ANC) 4.03 (1.4-6.9); BASOPHIL % 0.4 % (0.0-0.4); Basophil (Absolute #) 0.02 (0-0.4); Eosinophil % 2.5 % (0.00-5.0); Eosinophil (Absolute #) 0.14 (0-0.5); Hemoglobin 7.5 gm/dl (12.5-18.0); Lymphocyte (Absolute #) 0.68 (1.0-4.6); Lymphocytes % 12.1 % (24.0-44.0); Mean Cell Volume 78.1 fl (78-100); Mean Corpuscular Hemoglobin 23.4 pg (26-32); Mean Platelet Volume 11.1 fl (6-9.5); Monocyte (Absolute #) 0.74 (0.0-1.3); Monocytes % 13.2 % (0.0-12.0); Neutrophil % 71.8 % (36.0-66.0); Platelet Count 132 K/mm3 (150-450); Red Cell Distribution Width 22.4 % (11.5-14.0); White Blood Count 5.6 K/mm3 (4.0-10.5)
[2019-09-21 05:13] LABS: ALBUMIN 3.7 g/dL (3.5-5.0); ANION GAP 16.9 MEQ/L (5-15); BILIRUBIN,TOTAL 0.9 mg/dL (0.2-1.3); Calcium 9.5 mg/dL (8.4-10.2); Creatinine 1 1.87 mg/dL (0.66-1.25); MAGNESIUM 2.1 mg/dL (1.6-2.3); Total Protein 6.5 g/dL (6.3-8.2)
[2019-09-21 05:17] LABS: Potassium 4.3 mmol/L (3.5-5.1)
[2019-09-21 05:42] LABS: Slide Review 1 YES
--- NOTE | 2019-09-21 07:14 | PCM.NOTE ---
Date and Time: 09/21/19710 Subjective Assessment: doing ok - Review of Systems Constitutional: No Fever, No Chills Eyes: No Symptoms Ears, Nose, & Throat: No Symptoms Respiratory: No Cough, No Short Of Breath Cardiac: No Chest Pain, No Edema, No Syncope Abdominal/Gastrointestinal: No Abdominal Pain, No Nausea, No Vomiting, No Diarrhea Genitourinary Symptoms: No Dysuria Musculoskeletal: No Back Pain, No Neck Pain Skin: No Rash Neurological: No Dizziness, No Focal Weakness, No Sensory Changes Psychological: No Symptoms Endocrine: No Symptoms Hematologic/Lymphatic: No Symptoms Immunological/Allergic: No Symptoms Objective Exam General Appearance: no apparent distress, alert Neurologic Exam: alert, oriented x 3, cooperative, normal mood/affect, nml cerebellar function, sensation nml, No motor deficits Skin Exam: normal color, warm, dry Eye Exam: PERRL, EOMI, eyes nml inspection Ears, Nose, Throat Exam: normal ENT inspection, pharynx normal, moist mucous membranes Neck Exam: normal inspection, non-tender, supple, full range of motion Respiratory Exam: normal breath sounds, lungs clear, No respiratory distress Cardiovascular Exam: regular rate/rhythm, normal heart sounds Gastrointestinal/Abdomen Exam: soft, No tenderness, No mass Extremity Exam: normal inspection, normal range of motion Back Exam: normal inspection, normal range of motion, No CVA tenderness, No vertebral tenderness Male Genitalia Exam: deferred Rectal Exam: deferred OBJECTIVE DATA Vital Signs: Vital Signs - 24 hr Temp Pulse Resp BP Pulse Ox 09/21/19 04:00 98.4 F 58 L 18 137/59 99 09/21/19 00:00 98 F 57 L 18 130/63 100 09/20/19 22:30 98 09/20/19 20:00 98.3 F 67 20 161/72 98 09/20/19 16:00 97.6 F 58 L 24 143/65 99 09/20/19 12:14 97.2 F 59 L 20 151/64 98 09/20/19 08:57 98 Oxygen-Last 24 hours O2 Percentage 4 Liters = 36% O2 Percentage 4 Liters = 36% O2 Percentage 4 Liters = 36% O2 Percentage 4 Liters = 36% O2 Percentage 4 Liters = 36% Pain Assessment - Last Documented Pain Intensity 0 Pain Scale Used 0-10 Pain Scale Intake and Output: Intake & Output 09/18/19 09/19/19 09/20/19 09/21/19 12:59 11:59 11:59 11:59 Intake Total 1657 1500 Output Total 2150 9320 Balance -493 -350 Weight 101.2 kg Lab Results: Accuchecks Date 09/20/19 Date 09/20/19 Time 11:30 Time 07:30 Accucheck Value: 154 Accucheck Value: 249 Accucheck Value: 66 Lab Results-Last 24 Hours 09/20/19 09/20/19 09/20/19 Range/Units 05:00 07:20 09:25 WBC 6.4 (4.0-10.5) K/mm3 RBC 3.58 L (4.1-5.6) M/mm3 Hgb 8.4 L D (12.5-18.0) gm/dl Hct 27.7 L (42-50) % MCV 77.4 L D (78-100) fl MCH 23.4 L (26-32) pg MCHC 30.3 L (32-36) g/dl RDW 22.2 H (11.5-14.0) % Plt Count 152 (150-450) K/mm3 MPV 11.1 H (6-9.5) fl Gran % (36.0-66.0) % Eos # (Auto) (0-0.5) Absolute Lymphs (auto) (1.0-4.6) Absolute Monos (auto) (0.0-1.3) Lymphocytes % (24.0-44.0) % Monocytes % (0.0-12.0) % Eosinophils % (0.00-5.0) % Basophils % (0.0-0.4) % Absolute Granulocytes (1.4-6.9) Basophils # (0-0.4) Sodium (137-145) mmol/L Potassium (3.5-5.1) mmol/L Chloride (98-107) mmol/L Carbon Dioxide (22-30) mmol/L Anion Gap (5-15) MEQ/L BUN (9-20) mg/dL Creatinine (0.66-1.25) mg/dL Estimated GFR ML/MIN Glucose (74-106) mg/dL Hemoglobin A1c 5.75 (4.5-6.0) % Lactic Acid 2.2 H (0.4-2.0) Calcium (8.4-10.2) mg/dL Magnesium (1.6-2.3) mg/dL Total Bilirubin (0.2-1.3) mg/dL AST (17-59) U/L ALT (0-50) U/L Alkaline Phosphatase (38-126) U/L Serum Total Protein (6.3-8.2) g/dL Albumin (3.5-5.0) g/dL Urine Color (YELLOW) Urine Appearance (CLEAR) Urine pH (5-6) Ur Specific [place] (1.005-1.025) Urine Protein (Negative) Urine Ketones (NEGATIVE) Urine Blood (0-5) Crescencio/ul Urine Nitrite (NEGATIVE) Urine Bilirubin (NEGATIVE) Urine Urobilinogen (0-1) mg/dL Ur Leukocyte Esterase (NEGATIVE) Urine WBC (Auto) (0-5) /HPF Urine RBC (Auto) (0-2) /HPF U Hyaline Cast (Auto) (0-2) /LPF U Epithel Cells (Auto) (FEW) /HPF Urine Bacteria (Auto) (NEGATIVE) /HPF Urine Mucus (Auto) (NEGATIVE) /HPF Urine Culture Reflexed (NO) Ur Random Creatinine MG/DL U Random Total Protein (0-12) mg/dL Urine Glucose (NEGATIVE) mg/dL Slides for Path Review YES 09/20/19 09/20/19 09/21/19 Range/Units 19:00 19:00 04:30 WBC 5.6 (4.0-10.5) K/mm3 RBC 3.20 L (4.1-5.6) M/mm3 Hgb 7.5 L (12.5-18.0) gm/dl Hct 25.0 L (42-50) % MCV 78.1 (78-100) fl MCH 23.4 L (26-32) pg MCHC 30.0 L (32-36) g/dl RDW 22.4 H (11.5-14.0) % Plt Count 132 L (150-450) K/mm3 MPV 11.1 H (6-9.5) fl Gran % 71.8 H (36.0-66.0) % Eos # (Auto) 0.14 (0-0.5) Absolute Lymphs (auto) 0.68 L (1.0-4.6) Absolute Monos (auto) 0.74 (0.0-1.3) Lymphocytes % 12.1 L (24.0-44.0) % Monocytes % 13.2 H (0.0-12.0) % Eosinophils % 2.5 (0.00-5.0) % Basophils % 0.4 (0.0-0.4) % Absolute Granulocytes 4.03 (1.4-6.9) Basophils # 0.02 (0-0.4) Sodium (137-145) mmol/L Potassium (3.5-5.1) mmol/L Chloride (98-107) mmol/L Carbon Dioxide (22-30) mmol/L Anion Gap (5-15) MEQ/L BUN (9-20) mg/dL Creatinine (0.66-1.25) mg/dL Estimated GFR ML/MIN Glucose (74-106) mg/dL Hemoglobin A1c (4.5-6.0) % Lactic Acid (0.4-2.0) Calcium (8.4-10.2) mg/dL Magnesium (1.6-2.3) mg/dL Total Bilirubin (0.2-1.3) mg/dL AST (17-59) U/L ALT (0-50) U/L Alkaline Phosphatase (38-126) U/L Serum Total Protein (6.3-8.2) g/dL Albumin (3.5-5.0) g/dL Urine Color YELLOW (YELLOW) Urine Appearance CLEAR (CLEAR) Urine pH 5.0 (5-6) Ur Specific [place] 1.011 (1.005-1.025) Urine Protein NEGATIVE (Negative) Urine Ketones NEGATIVE (NEGATIVE) Urine Blood NEGATIVE (0-5) Crescencio/ul Urine Nitrite NEGATIVE (NEGATIVE) Urine Bilirubin NEGATIVE (NEGATIVE) Urine Urobilinogen NEGATIVE (0-1) mg/dL Ur Leukocyte Esterase NEGATIVE (NEGATIVE) Urine WBC (Auto) NONE (0-5) /HPF Urine RBC (Auto) NONE (0-2) /HPF U Hyaline Cast (Auto) 0-2 (0-2) /LPF U Epithel Cells (Auto) NONE (FEW) /HPF Urine Bacteria (Auto) NONE (NEGATIVE) /HPF Urine Mucus (Auto) SLIGHT (NEGATIVE) /HPF Urine Culture Reflexed NO (NO) Ur Random Creatinine 34.2 MG/DL U Random Total Protein 9 (0-12) mg/dL Urine Glucose NEGATIVE (NEGATIVE) mg/dL Slides for Path Review YES 09/21/19 Range/Units 04:30 WBC (4.0-10.5) K/mm3 RBC (4.1-5.6) M/mm3 Hgb (12.5-18.0) gm/dl Hct (42-50) % MCV (78-100) fl MCH (26-32) pg MCHC (32-36) g/dl RDW (11.5-14.0) % Plt Count (150-450) K/mm3 MPV (6-9.5) fl Gran % (36.0-66.0) % Eos # (Auto) (0-0.5) Absolute Lymphs (auto) (1.0-4.6) Absolute Monos (auto) (0.0-1.3) Lymphocytes % (24.0-44.0) % Monocytes % (0.0-12.0) % Eosinophils % (0.00-5.0) % Basophils % (0.0-0.4) % Absolute Granulocytes (1.4-6.9) Basophils # (0-0.4) Sodium 147 H (137-145) mmol/L Potassium 4.3 D (3.5-5.1) mmol/L Chloride 105 (98-107) mmol/L Carbon Dioxide 30 (22-30) mmol/L Anion Gap 16.9 H (5-15) MEQ/L BUN 59 H (9-20) mg/dL Creatinine 1.87 H (0.66-1.25) mg/dL Estimated GFR 37.2 ML/MIN Glucose 90 (74-106) mg/dL Hemoglobin A1c (4.5-6.0) % Lactic Acid (0.4-2.0) Calcium 9.5 (8.4-10.2) mg/dL Magnesium 2.1 (1.6-2.3) mg/dL Total Bilirubin 0.90 (0.2-1.3) mg/dL AST 21 (17-59) U/L ALT 15 (0-50) U/L Alkaline Phosphatase 57 (38-126) U/L Serum Total Protein 6.5 (6.3-8.2) g/dL Albumin 3.7 (3.5-5.0) g/dL Urine Color (YELLOW) Urine Appearance (CLEAR) Urine pH (5-6) Ur Specific [place] (1.005-1.025) Urine Protein (Negative) Urine Ketones (NEGATIVE) Urine Blood (0-5) Crescencio/ul Urine Nitrite (NEGATIVE) Urine Bilirubin (NEGATIVE) Urine Urobilinogen (0-1) mg/dL Ur Leukocyte Esterase (NEGATIVE) Urine WBC (Auto) (0-5) /HPF Urine RBC (Auto) (0-2) /HPF U Hyaline Cast (Auto) (0-2) /LPF U Epithel Cells (Auto) (FEW) /HPF Urine Bacteria (Auto) (NEGATIVE) /HPF Urine Mucus (Auto) (NEGATIVE) /HPF Urine Culture Reflexed (NO) Ur Random Creatinine MG/DL U Random Total Protein (0-12) mg/dL Urine Glucose (NEGATIVE) mg/dL Slides for Path Review Radiology Exams: Radiology Procedures Category Date Time Status CHEST 1 VIEW (PORTABLE) Routine Exams 09/20/19 08:00 Completed CHEST 1 VIEW (PORTABLE) Stat Exams 09/19/19 13:34 Completed Multi-Disciplinary Progress Notes: Multi-Disciplinary Progress Notes 09/20/19 14:10 Case Management Note by Belem Carroll PAPERWORK COMPLETE, FAXED TO [facility] Initialized on 09/20/19 14:10 - END OF NOTE 09/20/19 11:56 Case Management Note by Belem Carroll SPOKE WITH [facility], FAXED REFERRAL AT THIS TIME. Initialized on 09/20/19 11:56 - END OF NOTE 09/20/19 11:51 Case Management Note by Belem Carroll DISCHARGE PLAN REVIEWED WITH . REPORTS THAT THEY HAVE DISCUSSED GOING FOR A REHAB STAY ON DISCHARGE FROM HOSPITAL. REPORTS INCREASED WEAKNESS OVER LAST FEW WEEKS WITH INCREASED PAIN WITH MOVEMENT. REPORTS THAT SHE FEELS THAT PT CAN BENEFIT FROM SOME REHAB, REPORTS THAT SHE IS WANTING HIM TO COME HOME ONCE REHAB COMPLETE. REQUESTS REFERRAL TO [facility]. DENIES [facility] NEEDS AT PRESENT. WILL FOLLOW. Initialized on 09/20/19 11:51 - END OF NOTE Assessment/Plan (1) Acute on chronic blood loss anemia Current Visit: Yes Status: Acute Assessment & Plan: Last Vital Signs Temp 98.4 F 09/21/19 04:00 Pulse 58 L 09/21/19 04:00 Resp 18 09/21/19 04:00 BP 137/59 09/21/19 04:00 Pulse Ox 99 09/21/19 04:00 Allergies No Known Drug Allergies Allergy (Verified 09/19/19 13:39) Active Medications Acetaminophen (Tylenol 325 Mg) 325 mg PO Q4H PRN PRN PRN Reason: PAIN, FEVER, HEADACHE Stop: 10/19/19 15:25 Carvedilol (Coreg 12.5 Mg) 12.5 mg PO BID [facility] Stop: 10/19/19 21:59 Last Admin: 09/20/19 22:03 Dose: 12.5 mg Clonidine HCl (Catapres-Tts 1 Patch) 0.1 mg TD Mo [facility] Stop: 10/20/19 09:59 Last Admin: 09/20/19 11:19 Dose: 0.1 mg Docusate Sodium (Colace 100 Mg) 100 mg PO DAILY PRN PRN PRN Reason: CONSTIPATION Stop: 10/20/19 08:06 Famotidine (Pepcid 20 Mg) 20 mg PO BID [facility] Stop: 10/19/19 21:59 Last Admin: 09/20/19 22:03 Dose: 20 mg Furosemide (Lasix 40 Mg/4 Ml) 40 mg IV DAILY [facility] Stop: 10/21/19 09:59 Glimepiride (Amaryl 4 Mg) 4 mg PO DAILY@0800 [facility] Stop: 10/20/19 07:59 Last Admin: 09/20/19 08:25 Dose: Not Given Hydralazine HCl (Apresoline 25 Mg Tablet) 25 mg PO QID [facility] Stop: 10/19/19 21:59 Last Admin: 09/20/19 22:03 Dose: 25 mg Insulin Human Regular (Novolin R) 0 unit SQ UD PRN PRN Reason: ACCUCHEK Stop: 10/19/19 15:25 Last Admin: 09/20/19 23:05 Dose: 3 unit Metformin HCl (Glucophage 500 Mg) 1,000 mg PO BIDWM [facility] Stop: 10/20/19 07:59 Last Admin: 09/20/19 17:25 Dose: 1,000 mg Miscellaneous Information (Medication Intervention) 0 each .RN TO CHECK WITH DR GREGG Stop: 10/20/19 18:44 Pantoprazole Sodium (Protonix 40mg Tablet) 40 mg PO DAILY [facility] Stop: 10/20/19 09:59 Last Admin: 09/20/19 09:27 Dose: 40 mg Simvastatin (Zocor 10mg) 10 mg PO [facility] Stop: 10/19/19 21:59 Last Admin: 09/20/19 22:03 Dose: 10 mg Tamsulosin HCl (Flomax 0.4 Mg) 0.4 mg PO [facility] Stop: 10/20/19 21:59 Last Admin: 09/20/19 22:04 Dose: 0.4 mg Intake & Output 09/20/19 09/21/19 11:59 11:59 Intake Total 1657 1500 Output Total 2150 1850 Balance -493 -350 Weight 101.2 kg Orders 09/20/19 07:25 H&H 1 Hr Post Transfusion 1 HR POST TRANSFUS 09/20/19 08:00 Glimepiride 4 mg [Amaryl 4 mg] 4 mg PO DAILY@0800 Metformin HCl 500 mg [Glucophage 500 MG] 1,000 mg PO BIDWM 09/20/19 08:07 Docusate Sodium 100 mg [Colace 100 MG] 100 mg PO DAILY PRN PRN 09/20/19 10:00 Clonidine HCl Tts-1 Patch [Catapres-TTS 1 PATCH] 0.1 mg TD Mo PANTOPRAZOLE 40 mg Tablet [Protonix 40MG Tablet] 40 mg PO DAILY Lab Tests 09/20/19 09/20/19 09/20/19 05:00 07:20 09:25 WBC 6.4 RBC 3.58 L Hgb 8.4 L D Hct 27.7 L MCV 77.4 L D MCH 23.4 L MCHC 30.3 L RDW 22.2 H Plt Count 152 MPV 11.1 H Gran % Eos # (Auto) Absolute Lymphs (auto) Absolute Monos (auto) Lymphocytes % Monocytes % Eosinophils % Basophils % Absolute Granulocytes Basophils # Sodium Potassium Chloride Carbon Dioxide Anion Gap BUN Creatinine Estimated GFR Glucose Hemoglobin A1c 5.75 Lactic Acid 2.2 H Calcium Magnesium Total Bilirubin AST ALT Alkaline Phosphatase Serum Total Protein Albumin Urine Color Urine Appearance Urine pH Ur Specific [place] Urine Protein Urine Ketones Urine Blood Urine Nitrite Urine Bilirubin Urine Urobilinogen Ur Leukocyte Esterase Urine WBC (Auto) Urine RBC (Auto) U Hyaline Cast (Auto) U Epithel Cells (Auto) Urine Bacteria (Auto) Urine Mucus (Auto) Urine Culture Reflexed Ur Random Creatinine U Random Total Protein Urine Glucose Slides for Path Review YES 09/20/19 09/20/19 09/21/19 19:00 19:00 04:30 WBC 5.6 RBC 3.20 L Hgb 7.5 L Hct 25.0 L MCV 78.1 MCH 23.4 L MCHC 30.0 L RDW 22.4 H Plt Count 132 L MPV 11.1 H Gran % 71.8 H Eos # (Auto) 0.14 Absolute Lymphs (auto) 0.68 L Absolute Monos (auto) 0.74 Lymphocytes % 12.1 L Monocytes % 13.2 H Eosinophils % 2.5 Basophils % 0.4 Absolute Granulocytes 4.03 Basophils # 0.02 Sodium Potassium Chloride Carbon Dioxide Anion Gap BUN Creatinine Estimated GFR Glucose Hemoglobin A1c Lactic Acid Calcium Magnesium Total Bilirubin AST ALT Alkaline Phosphatase Serum Total Protein Albumin Urine Color YELLOW Urine Appearance CLEAR Urine pH 5.0 Ur Specific [place] 1.011 Urine Protein NEGATIVE Urine Ketones NEGATIVE Urine Blood NEGATIVE Urine Nitrite NEGATIVE Urine Bilirubin NEGATIVE Urine Urobilinogen NEGATIVE Ur Leukocyte Esterase NEGATIVE Urine WBC (Auto) NONE Urine RBC (Auto) NONE U Hyaline Cast (Auto) 0-2 U Epithel Cells (Auto) NONE Urine Bacteria (Auto) NONE Urine Mucus (Auto) SLIGHT Urine Culture Reflexed NO Ur Random Creatinine 34.2 U Random Total Protein 9 Urine Glucose NEGATIVE Slides for Path Review YES 09/21/19 04:30 WBC RBC Hgb Hct MCV MCH MCHC RDW Plt Count MPV Gran % Eos # (Auto) Absolute Lymphs (auto) Absolute Monos (auto) Lymphocytes % Monocytes % Eosinophils % Basophils % Absolute Granulocytes Basophils # Sodium 147 H Potassium 4.3 D Chloride 105 Carbon Dioxide 30 Anion Gap 16.9 H BUN 59 H Creatinine 1.87 H Estimated GFR 37.2 Glucose 90 Hemoglobin A1c Lactic Acid Calcium 9.5 Magnesium 2.1 Total Bilirubin 0.90 AST 21 ALT 15 Alkaline Phosphatase 57 Serum Total Protein 6.5 Albumin 3.7 Urine Color Urine Appearance Urine pH Ur Specific [place] Urine Protein Urine Ketones Urine Blood Urine Nitrite Urine Bilirubin Urine Urobilinogen Ur Leukocyte Esterase Urine WBC (Auto) Urine RBC (Auto) U Hyaline Cast (Auto) U Epithel Cells (Auto) Urine Bacteria (Auto) Urine Mucus (Auto) Urine Culture Reflexed Ur Random Creatinine U Random Total Protein Urine Glucose Slides for Path Review Code(s): D62 - ACUTE POSTHEMORRHAGIC ANEMIA (2) Acute on chronic renal insufficiency Current Visit: Yes Status: Acute Assessment & Plan: Chief Complaint Diagnosis Acute Blood Anemia, Hyperkalemia, HTN, Acute on Chronic Renal Insufficiency Allergies Allergy/AdvReac Type Severity Reaction Status Date / Time No Known Drug Allergies Allergy Verified 09/19/19 13:39 Vital Signs (Last 24 hours) Temp Pulse Resp BP Pulse Ox 09/21/19 04:00 98.4 F 58 L 18 137/59 99 09/21/19 00:00 98 F 57 L 18 130/63 100 09/20/19 22:30 98 09/20/19 20:00 98.3 F 67 20 161/72 98 09/20/19 16:00 97.6 F 58 L 24 143/65 99 09/20/19 12:14 97.2 F 59 L 20 151/64 98 09/20/19 08:57 98 Home Medications Medication Instructions Recorded Confirmed Last Taken Type Docusate Sodium 100 mg [Colace 100 mg PO DAILY PRN PRN 09/19/19 09/19/19 Unknown History 100 MG] HydrALAzine HCL 25 MG TAB 25 mg PO QID 09/19/19 09/19/19 Unknown History [Apresoline 25 MG TABLET] Current Medications Generic Name Dose Route Start Last Admin Trade Name Freq PRN Reason Stop Dose Admin Acetaminophen 325 mg 09/19/19 15:26 Tylenol 325 Mg PO 10/19/19 15:25 Q4H PRN PRN PAIN, FEVER, HEADACHE Carvedilol 12.5 mg 09/19/19 22:00 09/20/19 22:03 Coreg 12.5 Mg PO 10/19/19 21:59 12.5 mg BID CRISTINO Administration Clonidine HCl 0.1 mg 09/20/19 10:00 09/20/19 11:19 Catapres-Tts 1 Patch TD 10/20/19 09:59 0.1 mg Mo CRISTINO Administration Docusate Sodium 100 mg 09/20/19 08:07 Colace 100 Mg PO 10/20/19 08:06 DAILY PRN PRN CONSTIPATION Famotidine 20 mg 09/19/19 22:00 09/20/19 22:03 Pepcid 20 Mg PO 10/19/19 21:59 20 mg BID CRISTINO Administration Furosemide 40 mg 09/21/19 10:00 Lasix 40 Mg/4 Ml IV 10/21/19 09:59 DAILY CRISTINO Glimepiride 4 mg 09/20/19 08:00 09/20/19 08:25 Amaryl 4 Mg PO 10/20/19 07:59 Not Given DAILY@0800 C[facility]STINO Hydralazine HCl 25 mg 09/19/19 22:00 09/20/19 22:03 Apresoline 25 Mg Tablet PO 10/19/19 21:59 25 mg QID [facility] Administration Insulin Human Regular 0 unit 09/19/19 15:26 09/20/19 23:05 Novolin R SQ 10/19/19 15:25 3 unit UD PRN Administration ACCUCHEK Metformin HCl 1,000 mg 09/20/19 08:00 09/20/19 17:25 Glucophage 500 Mg PO 10/20/19 07:59 1,000 mg BIDWM [facility] Administration Miscellaneous Information 0 each 09/20/19 18:45 Medication Intervention 10/20/19 18:44 .RN TO CHECK WITH DR GREGG Pantoprazole Sodium 40 mg 09/20/19 10:00 09/20/19 09:27 Protonix 40mg Tablet PO 10/20/19 09:59 40 mg DAILY [facility] Administration Simvastatin 10 mg 09/19/19 22:00 09/20/19 22:03 Zocor 10mg PO 10/19/19 21:59 10 mg HS C[facility]STINO Administration Tamsulosin HCl 0.4 mg 09/20/19 22:00 09/20/19 22:04 Flomax 0.4 Mg PO 10/20/19 21:59 0.4 mg HS CRISTINO Administration Discontinued Medications Generic Name Dose Route Start Last Admin Trade Name Freq PRN Reason Stop Dose Admin Calcium Gluconate 1,000 mg 09/19/19 14:36 09/19/19 14:55 Calcium Gluconate 10% 1000 Mg IV 09/19/19 14:37 1,000 mg STAT ONE Administration Calcium Gluconate Confirm 09/19/19 14:44 Calcium Gluconate 10% 1000 Mg Administered 09/19/19 14:45 Dose 1,000 mg IV .STK-MED ONE Dextrose 50 ml 09/19/19 14:36 09/19/19 14:55 D50w 50 Ml Abboject IV 09/19/19 14:37 50 ml STAT ONE Administration Dextrose Confirm 09/19/19 14:46 D50w 50 Ml Abboject Administered 09/19/19 14:47 Dose 50 ml IV .STK-MED ONE Furosemide 40 mg 09/19/19 19:00 09/19/19 14:55 Lasix 40 Mg/4 Ml IV 09/19/19 19:01 40 mg STAT ONE Administration Furosemide Confirm 09/19/19 14:46 Lasix 40 Mg/4 Ml Administered 09/19/19 14:47 Dose 40 mg .ROUTE .STK-MED ONE Furosemide 40 mg 09/19/19 15:26 09/20/19 06:38 Lasix 40 Mg/4 Ml IV 09/20/19 12:00 40 mg AFTER EA UNIT BLOOD PRN Administration HYPERTENSION Furosemide Confirm 09/20/19 06:34 Lasix 40 Mg/4 Ml Administered 09/20/19 06:35 Dose 40 mg .ROUTE .STK-MED ONE Sodium Chloride 1,000 mls @ 50 mls/hr 09/19/19 16:15 09/20/19 02:51 Sodium Chloride 0.9% 1000 Ml IV 10/19/19 16:14 50 mls/hr .Q20H CRISTINO Administration Sodium Chloride Confirm 09/19/19 16:09 Sodium Chloride 0.9% 1000 Ml Administered 09/19/19 16:10 Dose 1,000 mls @ ud .ROUTE .STK-MED ONE Insulin Human Regular 10 unit 09/19/19 14:36 09/19/19 14:55 Novolin R IV 09/19/19 14:37 10 unit STAT ONE Administration Insulin Human Regular Confirm 09/19/19 14:46 Novolin R Administered 09/19/19 14:47 Dose 10 unit .ROUTE .STK-MED ONE Metformin HCl Confirm 09/19/19 19:46 Glucophage 500 Mg Administered 09/19/19 19:47 Dose 1,000 mg .ROUTE .STK-MED ONE Sodium Bicarbonate 50 meq 09/19/19 14:36 09/19/19 14:55 Sodium Bicarbonate 50 Meq/50 Ml Abboject IV 09/19/19 14:37 50 meq STAT ONE Administration Sodium Bicarbonate Confirm 09/19/19 14:47 Sodium Bicarbonate 50 Meq/50 Ml Abboject Administered 09/19/19 14:48 Dose 50 meq IV .STK-MED ONE Intake & Output (Last 24 hours) 09/18/19 09/19/19 09/20/19 09/21/19 12:59 11:59 11:59 11:59 Intake Total 1657 1500 Output Total 2150 1850 Balance -493 -350 Weight 101.2 kg Laboratory Results (Last 24 hours) 09/21/19 09/21/19 09/20/19 04:30 04:30 19:00 WBC 5.6 RBC 3.20 L Hgb 7.5 L Hct 25.0 L MCV 78.1 MCH 23.4 L MCHC 30.0 L RDW 22.4 H Plt Count 132 L MPV 11.1 H Gran % 71.8 H Eos # (Auto) 0.14 Absolute Lymphs (auto) 0.68 L Absolute Monos (auto) 0.74 Lymphocytes % 12.1 L Monocytes % 13.2 H Eosinophils % 2.5 Basophils % 0.4 Absolute Granulocytes 4.03 Basophils # 0.02 Sodium 147 H Potassium 4.3 D Chloride 105 Carbon Dioxide 30 Anion Gap 16.9 H BUN 59 H Creatinine 1.87 H Estimated GFR 37.2 Glucose 90 Hemoglobin A1c Lactic Acid Calcium 9.5 Magnesium 2.1 Total Bilirubin 0.90 AST 21 ALT 15 Alkaline Phosphatase 57 Serum Total Protein 6.5 Albumin 3.7 Urine Color Urine Appearance Urine pH Ur Specific [place] Urine Protein Urine Ketones Urine Blood Urine Nitrite Urine Bilirubin Urine Urobilinogen Ur Leukocyte Esterase Urine WBC (Auto) Urine RBC (Auto) U Hyaline Cast (Auto) U Epithel Cells (Auto) Urine Bacteria (Auto) Urine Mucus (Auto) Urine Culture Reflexed Ur Random Creatinine 34.2 U Random Total Protein 9 Urine Glucose Slides for Path Review YES 1109/20/19 09/20/19 19:00 09:25 07:20 WBC 6.4 RBC 3.58 L Hgb 8.4 L D Hct 27.7 L MCV 77.4 L D MCH 23.4 L MCHC 30.3 L RDW 22.2 H Plt Count 152 MPV 11.1 H Gran % Eos # (Auto) Absolute Lymphs (auto) Absolute Monos (auto) Lymphocytes % Monocytes % Eosinophils % Basophils % Absolute Granulocytes Basophils # Sodium Potassium Chloride Carbon Dioxide Anion Gap BUN Creatinine Estimated GFR Glucose Hemoglobin A1c Lactic Acid 2.2 H Calcium Magnesium Total Bilirubin AST ALT Alkaline Phosphatase Serum Total Protein Albumin Urine Color YELLOW Urine Appearance CLEAR Urine pH 5.0 Ur Specific [place] 1.011 Urine Protein NEGATIVE Urine Ketones NEGATIVE Urine Blood NEGATIVE Urine Nitrite NEGATIVE Urine Bilirubin NEGATIVE Urine Urobilinogen NEGATIVE Ur Leukocyte Esterase NEGATIVE Urine WBC (Auto) NONE Urine RBC (Auto) NONE U Hyaline Cast (Auto) 0-2 U Epithel Cells (Auto) NONE Urine Bacteria (Auto) NONE Urine Mucus (Auto) SLIGHT Urine Culture Reflexed NO Ur Random Creatinine U Random Total Protein Urine Glucose NEGATIVE Slides for Path Review YES 09/20/19 05:00 WBC RBC Hgb Hct MCV MCH MCHC RDW Plt Count MPV Gran % Eos # (Auto) Absolute Lymphs (auto) Absolute Monos (auto) Lymphocytes % Monocytes % Eosinophils % Basophils % Absolute Granulocytes Basophils # Sodium Potassium Chloride Carbon Dioxide Anion Gap BUN Creatinine Estimated GFR Glucose Hemoglobin A1c 5.75 Lactic Acid Calcium Magnesium Total Bilirubin AST ALT Alkaline Phosphatase Serum Total Protein Albumin Urine Color Urine Appearance Urine pH Ur Specific [place] Urine Protein Urine Ketones Urine Blood Urine Nitrite Urine Bilirubin Urine Urobilinogen Ur Leukocyte Esterase Urine WBC (Auto) Urine RBC (Auto) U Hyaline Cast (Auto) U Epithel Cells (Auto) Urine Bacteria (Auto) Urine Mucus (Auto) Urine Culture Reflexed Ur Random Creatinine U Random Total Protein Urine Glucose Slides for Path Review Orders (Last 24 hours) Category Date Time Status H&H 1 Hr Post Transfusion 1 HR POST TRANSFUS Care 09/20/19 07:25 Active Consult Nephrology ROUTINE Cons 09/20/19 14:30 Completed Fluid Restriction Diet 09/21/19 Breakfast Active CHEST 1 VIEW (PORTABLE) Routine Exams 09/20/19 08:00 Completed CBC AM.LAB Lab 09/20/19 07:20 Completed CBC W DIFF AM.LAB Lab 09/21/19 04:30 Completed CMP AM.LAB Lab 09/21/19 04:30 Completed CREATININE,URINE RANDOM Urgent Lab 09/20/19 19:00 Completed Lactic Acid AM.LAB Lab 09/20/19 09:25 Completed MAGNESIUM Routine Lab 09/21/19 04:30 Completed PROTEIN,URINE RANDOM Urgent Lab 09/20/19 19:00 Completed UA W/RFX UR CULTURE Urgent Lab 09/20/19 19:00 Completed Clonidine HCl Tts-1 Patch [Catapres-TTS 1 PATCH] Med 09/20/19 10:00 Active 0.1 mg TD Mo Docusate Sodium 100 mg [Colace 100 MG] Med 09/20/19 08:07 Active 100 mg PO DAILY PRN PRN Furosemide 40 mg/4 ml [Lasix 40 MG/4 ML] Med 09/20/19 06:34 Discontinued 40 mg .ROUTE .STK-MED ONE Furosemide 40 mg/4 ml [Lasix 40 MG/4 ML] Med 09/21/19 10:00 Active 40 mg IV DAILY Glimepiride 4 mg [Amaryl 4 mg] Med 09/20/19 08:00 Active 4 mg PO DAILY@0800 Medication Intervention Med 09/20/19 18:45 Active 0 each MC .RN TO CHECK WITH Metformin HCl 500 mg [Glucophage 500 MG] Med 09/20/19 08:00 Active 1,000 mg PO BIDWM PANTOPRAZOLE 40 mg Tablet [Protonix 40MG Tablet] Med 09/20/19 10:00 Active 40 mg PO DAILY Tamsulosin HCl 0.4 mg [Flomax 0.4 MG] Med 09/20/19 22:00 Active 0.4 mg PO HS Patient Care Notes (Last 24 hours) 09/20/19 14:10 Case Management Note by Belem Carroll PAPERWORK COMPLETE, FAXED TO [facility] Initialized on 09/20/19 14:10 - END OF NOTE 09/20/19 11:56 Case Management Note by Belem Carroll SPOKE WITH [facility], FAXED REFERRAL AT THIS TIME. Initialized on 09/20/19 11:56 - END OF NOTE 09/20/19 11:51 Case Management Note by Belem Carroll DISCHARGE PLAN REVIEWED WITH . REPORTS THAT THEY HAVE DISCUSSED GOING FOR A REHAB STAY ON DISCHARGE FROM HOSPITAL. REPORTS INCREASED WEAKNESS OVER LAST FEW WEEKS WITH INCREASED PAIN WITH MOVEMENT. REPORTS THAT SHE FEELS THAT PT CAN BENEFIT FROM SOME REHAB, REPORTS THAT SHE IS WANTING HIM TO COME HOME ONCE REHAB COMPLETE. REQUESTS REFERRAL TO [facility]. DENIES [facility] NEEDS AT PRESENT. WILL FOLLOW. Initialized on 09/20/19 11:51 - END OF NOTE Code(s): N28.9 - DISORDER OF KIDNEY AND URETER, UNSPECIFIED; N18.9 - CHRONIC KIDNEY DISEASE, UNSPECIFIED (3) Essential hypertension Current Visit: Yes Status: Acute Code(s): I10 - ESSENTIAL (PRIMARY) HYPERTENSION (4) Generalized weakness Current Visit: Yes Status: Acute Code(s): R53.1 - WEAKNESS (5) Hyperkalemia Current Visit: Yes Status: Acute Code(s): E87.5 - HYPERKALEMIA (6) Chronic ischemic colitis, enteritis, or enterocolitis Current Visit: Yes Status: Chronic Code(s): K55.1 - CHRONIC VASCULAR DISORDERS OF INTESTINE (7) Anemia associated with chronic renal failure Current Visit: No Status: Acute Code(s): N18.9 - CHRONIC KIDNEY DISEASE, UNSPECIFIED; D63.1 - ANEMIA IN CHRONIC KIDNEY DISEASE (8) CAD (coronary artery disease) Current Visit: Yes Status: Acute Qualifiers: Coronary Disease-Associated Artery/Lesion type: [place] artery Code(s): I25.10 - ATHSCL HEART DISEASE OF [place] CORONARY ARTERY W/O ANG PCTRS (9) Atrial fibrillation Current Visit: Yes Status: Chronic Qualifiers: Code(s): I48.91 - UNSPECIFIED ATRIAL FIBRILLATION
[2019-09-21] MEDS: AMARYL 4 MG PO SCH (08:14)
[2019-09-21] MEDS: Glucophage 500 MG PO SCH ×2 (08:14→17:49)
--- NOTE | 2019-09-21 09:30 | CONS ---
CONSULT DATE: 09/20/2019 REASON FOR CONSULT: 1) Evaluation of increased BUN and creatinine. 2) Fluid electrolyte management. HISTORY: Michelle Najera is a very pleasant 79 year-old gentleman who had seen me in the past. The patient has underlying possible chronic kidney disease stage III, baseline creatinine is not entirely clear. The patient was on Hospice. The patient has had history of GI bleed. He had black tarry stools. He came to the hospital. The patient has been on Hospice because of underlying cardiac and pulmonary issues. He has chronic respiratory failure and is on oxygen. His hemoglobin was less than 5. He received multiple units of blood transfusions. His initial creatinine was around 1.9. Renal consultation for fluid electrolyte management. REVIEW OF SYSTEMS: The patient states that he has difficulty in voiding, complains of urinary incontinence, remains on oxygen and has leg swelling. The patient is not hypotensive at this time. He is not on any nonsteroidal. Denies any chest pain or abdominal pain. No vomiting or diarrhea. Appetite has been fair. No skin rash or skin itching. All systems were reviewed in detail pertinent mentioned here and in history of present illness and the rest were negative. PAST MEDICAL HISTORY: On Hospice for six months. Hypertension. Diabetes mellitus type 2. Congestive heart failure. Chronic obstructive pulmonary disease. Chronic respiratory failure. Dyslipidemia. Tendency for fluid retention and edema. History of CVA. Peripheral vascular disease. History of prostate issues. History of urine incontinence. PAST SURGICAL HISTORY: Bilateral knee surgery. Colonoscopy. Stents. MEDICATIONS: Prehospital medications were reviewed which included carvedilol, atorvastatin, pantoprazole, clonidine, hydralazine, metformin, potassium, glyburide, glimepiride. The patient was also supposed to take diuretic. ALLERGIES: NKDA. SOCIAL HISTORY: Nonsmoker, nonalcoholic. No drug abuse. He was on Hospice. FAMILY HISTORY: No history of renal problems in the family. PHYSICAL EXAMINATION: Reveals a gentleman who is upright in bed visibly short of breath. Vital signs were reviewed. Vital signs stable on 3 to 4 liters nasal cannula at this time. HEENT: Normocephalic, atraumatic, pale conjunctivae. NECK: Supple, questionable JVD. Accessory muscles of respiration in use and talks in full sentences. CHEST: Bilateral occasional rales. CVS: S1, S2 normal. No rub or gallop. ABDOMEN: Soft, nontender. No organomegaly. EXTREMITIES: Edema present bilaterally. SKIN: No diffuse rash seen. Venous stasis changes noted. MUSCULOSKELETAL: No acute joint swelling, redness, nontender. NEUROLOGIC: Nonfocal exam, alert, awake, oriented x3. LAB DATA AND TESTS: Labs were reviewed. ASSESSMENT: 1) HYPERKALEMIA: Potassium was more than 7 at admission. It is already improving. Etiology is most likely because of underlying acute kidney injury on background of continued high dose potassium supplementation. The patient was not taking diuretics which caused possibly buildup of potassium. The patient was given concoction including calcium gluconate, insulin dextrose and on nebulization. Continue to monitor potassium level. Component of urine retention leading to hyperkalemia cannot be completely ruled out. Potassium is coming down. We will check in the morning and potassium level should be okay. 2) ACUTE KIDNEY INJURY ON CHRONIC KIDNEY DISEASE: Most likely stage III. Etiology of acute kidney injury because of blood loss, hemodynamic instability, component of urine retention cannot be ruled out. The patient is status post transfusion. Now appears to be more volume overloaded and cardioedema syndrome may be setting in. I recommended IV Lasix but he declined at this time. I will start the patient on Flomax. Will recommend post-void bladder scan as well as ultrasonogram of kidneys. 3) FLUID RETENTION AND EDEMA: The patient is very reluctant for IV Lasix but eventually agreed to take in the morning. I would recommend Lasix 40 mg IV b.i.d. In the meantime, I will start Myrbetriq in the morning and Flomax in the evening. 4) HYPERTENSION: Well controlled, continue present medications. 5) DIABETES MELLITUS TYPE 2: I would recommend to avoid long acting medications like Glyburide and Glimepiride. It is unclear whether he was on both of these medications or not. I recommend just Glipizide. Also given his age, comorbidities would recommend to stop Metformin. 6) ANEMIA SECONDARY TO GI BLEED: Continue to monitor hemoglobin. 7) URINE INCONTINENCE: Mainly urge incontinence. Flomax at night and Myrbetriq in the morning as mentioned above. All questions were answered. Closely follow the patient. We will follow the creatinine trend and see at what point it stabilizes.
[2019-09-21] MEDS: Lasix 40 MG/4 ML IV SCH (09:52)
[2019-09-21] MEDS: Pepcid 20 MG PO SCH ×2 (09:52→22:58)
[2019-09-21] MEDS: COREG 12.5 MG PO SCH ×2 (09:52→22:59)
[2019-09-21] MEDS: Protonix 40MG Tablet PO SCH (09:53)
[2019-09-21] MEDS: Apresoline 25 MG TABLET PO SCH ×4 (09:53→23:06)
[2019-09-21] MEDS: Flomax 0.4 MG PO SCH (22:59)
[2019-09-21] MEDS: Zocor 10MG PO SCH (22:59)
[2019-09-22 05:39] LABS: ALBUMIN 3.5 g/dL (3.5-5.0); ANION GAP 12.6 MEQ/L (5-15); BILIRUBIN,TOTAL 0.7 mg/dL (0.2-1.3); Creatinine 1 1.66 mg/dL (0.66-1.25); Total Protein 6.3 g/dL (6.3-8.2)
[2019-09-22 06:01] LABS: Hematocrit 25.3 % (42-50); Hemoglobin 7.5 gm/dl (12.5-18.0); Mean Cell Volume 78.8 fl (78-100); Mean Corpuscular Hgb Concent. 29.6 g/dl (32-36); Mean Platelet Volume 11.1 fl (6-9.5); Platelet Count 117 K/mm3 (150-450); Red Blood Count 3.21 M/mm3 (4.1-5.6); Red Cell Distribution Width 22.8 % (11.5-14.0); White Blood Count 5.5 K/mm3 (4.0-10.5)
[2019-09-22 06:02] LABS: Mean Corpuscular Hemoglobin 23.3 pg (26-32)
[2019-09-22 07:40] VITALS: BP 153/64; PULSE 59
[2019-09-22] MEDS: AMARYL 4 MG PO SCH (08:11)
[2019-09-22] MEDS: Glucophage 500 MG PO SCH (08:11)
[2019-09-22 08:32] LABS: Slide Review YES
[2019-09-22 09:05] VITALS: O2SAT 98
[2019-09-22] MEDS: COREG 12.5 MG PO SCH (10:11)
[2019-09-22] MEDS: Apresoline 25 MG TABLET PO SCH (10:12)
[2019-09-22] MEDS: Pepcid 20 MG PO SCH (10:12)
[2019-09-22] MEDS: Protonix 40MG Tablet PO SCH (10:12)
[2019-09-22] MEDS: Lasix 40 MG/4 ML IV SCH ×2 (10:15→12:27)
--- NOTE | 2019-09-23 20:02 | PCM.DS ---
Discharge Summary Date of Admission: 09/19/19 15:24 Admitting Physician: BRIDGET LAU Consults: Consults on Case 09/20/19 14:30 Consult Nephrology ROUTINE Primary Care Provider: BRIDGET LAU Allergies Allergies No Known Drug Allergies Allergy (Verified 09/19/19 13:39) Hospital Summary - Hospital Course Hospital Course: Chief Complaint Diagnosis Acute Blood Anemia, Hyperkalemia, HTN, Acute on Chronic Renal Insufficiency Allergies Allergy/AdvReac Type Severity Reaction Status Date / Time No Known Drug Allergies Allergy Verified 09/19/19 13:39 Home Medications Medication Instructions Recorded Confirmed Last Taken Type Docusate Sodium 100 mg [Colace 100 mg PO DAILY PRN PRN 09/19/19 09/19/19 Unknown History 100 MG] HydrALAzine HCL 25 MG TAB 25 mg PO QID 09/19/19 09/19/19 Unknown History [Apresoline 25 MG TABLET] Furosemide [Lasix] 40 mg PO DAILY #30 tablet 09/22/19 Unknown Rx Current Medications Discontinued Medications Generic Name Dose Route Start Last Admin Trade Name Freq PRN Reason Stop Dose Admin Acetaminophen 325 mg 09/19/19 15:26 Tylenol 325 Mg PO 10/19/19 15:25 Q4H PRN PRN PAIN, FEVER, HEADACHE Calcium Gluconate 1,000 mg 09/19/19 14:36 09/19/19 14:55 Calcium Gluconate 10% 1000 Mg IV 09/19/19 14:37 1,000 mg STAT ONE Administration Calcium Gluconate Confirm 09/19/19 14:44 Calcium Gluconate 10% 1000 Mg Administered 09/19/19 14:45 Dose 1,000 mg IV .STK-MED ONE Carvedilol 12.5 mg 09/19/19 22:00 09/22/19 10:11 Coreg 12.5 Mg PO 10/19/19 21:59 12.5 mg BID CRISTINO Administration Clonidine HCl 0.1 mg 09/20/19 10:00 09/20/19 11:19 Catapres-Tts 1 Patch TD 10/20/19 09:59 0.1 mg Mo CRISTINO Administration Dextrose 50 ml 09/19/19 14:36 09/19/19 14:55 D50w 50 Ml Abboject IV 09/19/19 14:37 50 ml STAT ONE Administration Dextrose Confirm 09/19/19 14:46 D50w 50 Ml Abboject Administered 09/19/19 14:47 Dose 50 ml IV .STK-MED ONE Docusate Sodium 100 mg 09/20/19 08:07 Colace 100 Mg PO 10/20/19 08:06 DAILY PRN PRN CONSTIPATION Famotidine 20 mg 09/19/19 22:00 09/22/19 10:12 Pepcid 20 Mg PO 10/19/19 21:59 20 mg BID CRISTINO Administration Furosemide 40 mg 09/19/19 19:00 09/19/19 14:55 Lasix 40 Mg/4 Ml IV 09/19/19 19:01 40 mg STAT ONE Administration Furosemide Confirm 09/19/19 14:46 Lasix 40 Mg/4 Ml Administered 09/19/19 14:47 Dose 40 mg .ROUTE .STK-MED ONE Furosemide 40 mg 09/19/19 15:26 09/20/19 06:38 Lasix 40 Mg/4 Ml IV 09/20/19 12:00 40 mg AFTER EA UNIT BLOOD PRN Administration HYPERTENSION Furosemide Confirm 09/20/19 06:34 Lasix 40 Mg/4 Ml Administered 09/20/19 06:35 Dose 40 mg .ROUTE .STK-MED ONE Furosemide 40 mg 09/21/19 10:00 09/22/19 12:27 Lasix 40 Mg/4 Ml IV 10/21/19 09:59 Not Given DAILY CRISTINO Glimepiride 4 mg 09/20/19 08:00 09/22/19 08:11 Amaryl 4 Mg PO 10/20/19 07:59 4 mg DAILY@0800 CRISTINO Administration Hydralazine HCl 25 mg 09/19/19 22:00 09/22/19 10:12 Apresoline 25 Mg Tablet PO 10/19/19 21:59 25 mg QID CRISTINO Administration Sodium Chloride 1,000 mls @ 50 mls/hr 09/19/19 16:15 09/20/19 02:51 Sodium Chloride 0.9% 1000 Ml IV 10/19/19 16:14 50 mls/hr .Q20H CRISTINO Administration Sodium Chloride Confirm 09/19/19 16:09 Sodium Chloride 0.9% 1000 Ml Administered 09/19/19 16:10 Dose 1,000 mls @ ud .ROUTE .STK-MED ONE Insulin Human Regular 10 unit 09/19/19 14:36 09/19/19 14:55 Novolin R IV 09/19/19 14:37 10 unit STAT ONE Administration Insulin Human Regular Confirm 09/19/19 14:46 Novolin R Administered 09/19/19 14:47 Dose 10 unit .ROUTE .STK-MED ONE Insulin Human Regular 0 unit 09/19/19 15:26 09/20/19 23:05 Novolin R SQ 10/19/19 15:25 3 unit UD PRN Administration ACCUCHEK Metformin HCl 1,000 mg 09/20/19 08:00 09/22/19 08:11 Glucophage 500 Mg PO 10/20/19 07:59 1,000 mg BIDWM CRISTINO Administration Metformin HCl Confirm 09/19/19 19:46 Glucophage 500 Mg Administered 09/19/19 19:47 Dose 1,000 mg .ROUTE .STK-MED ONE Miscellaneous Information 0 each 09/20/19 18:45 Medication Intervention MC 10/20/19 18:44 .RN TO CHECK WITH DR GREGG Pantoprazole Sodium 40 mg 09/20/19 10:00 09/22/19 10:12 Protonix 40mg Tablet PO 10/20/19 09:59 40 mg DAILY CRISTINO Administration Simvastatin 10 mg 09/19/19 22:00 09/21/19 22:59 Zocor 10mg PO 10/19/19 21:59 10 mg HS CRISTNIO Administration Sodium Bicarbonate 50 meq 09/19/19 14:36 09/19/19 14:55 Sodium Bicarbonate 50 Meq/50 Ml Abboject IV 09/19/19 14:37 50 meq STAT ONE Administration Sodium Bicarbonate Confirm 09/19/19 14:47 Sodium Bicarbonate 50 Meq/50 Ml Abboject Administered 09/19/19 14:48 Dose 50 meq IV .STK-MED ONE Tamsulosin HCl 0.4 mg 09/20/19 22:00 09/21/19 22:59 Flomax 0.4 Mg PO 10/20/19 21:59 0.4 mg HS CRISTINO Administration Intake & Output (Last 24 hours) 09/21/19 09/22/19 09/23/19 09/24/19 11:59 11:59 11:59 11:59 Intake Total 1979 1299 Output Total 2350 975 Balance -370 325 Weight 101.2 kg - Vitals & Intake/Output Vital Signs: Vital Signs Temperature 98.3 F 09/22/19 07:38 Pulse Rate 59 L 09/22/19 07:38 Respiratory Rate 18 09/22/19 07:38 Blood Pressure 153/64 09/22/19 07:38 O2 Sat by Pulse Oximetry 98 09/22/19 09:04 Oxygen-Last Documented O2 Percentage 2 Liters = 28% Intake & Output: Intake & Output 09/21/19 09/22/19 09/23/19 09/24/19 11:59 11:59 11:59 11:59 Intake Total 1979 1300 Output Total 2350 975 Balance -370 325 Weight 101.2 kg - Lab Result Diagrams: 09/22/19 05:10 09/22/19 05:10 - Procedures and Test Procedures and Tests throughout Hospitalization: Therapy Orders & Screens 09/19/19 15:26 EKG Comment: Oxygen Nasal Cannula 3 lpm Comment: 09/21/19 09:28 PT Eval & Treat (MD Order) ROUTINE Reason for Eval:: deconditioning r/t anemia, hyperkalemia, renal insufficiency Diagnosis: Acute Blood Anemia, Hyperkalemia, HTN, Acute on Chronic Renal Insufficiency Discharge Exam General Appearance: no apparent distress, alert Neurologic Exam: alert, oriented x 3, cooperative, normal mood/affect, nml cerebellar function, sensation nml, No motor deficits Eye Exam: PERRL, EOMI, eyes nml inspection Ears, Nose, Throat Exam: normal ENT inspection, pharynx normal, moist mucous membranes Neck Exam: normal inspection, non-tender, supple, full range of motion Respiratory Exam: normal breath sounds, lungs clear, No respiratory distress Cardiovascular Exam: regular rate/rhythm, normal heart sounds Gastrointestinal/Abdomen Exam: soft, No tenderness, No mass Male Genitalia Exam: deferred Rectal Exam: deferred Back Exam: normal inspection, normal range of motion, No CVA tenderness, No vertebral tenderness Extremity Exam: normal inspection, normal range of motion Skin Exam: normal color, warm, dry Final Diagnosis/Problem List - Final Discharge Diagnosis/Problem (1) Generalized weakness Status: Resolved Code(s): R53.1 - WEAKNESS (2) Acute on chronic blood loss anemia Status: Resolved Priority: High Code(s): D62 - ACUTE POSTHEMORRHAGIC ANEMIA (3) Acute on chronic renal insufficiency Status: Chronic Priority: High Code(s): N28.9 - DISORDER OF KIDNEY AND URETER, UNSPECIFIED; N18.9 - CHRONIC KIDNEY DISEASE, UNSPECIFIED (4) Essential hypertension Status: Chronic Code(s): I10 - ESSENTIAL (PRIMARY) HYPERTENSION (5) Hyperkalemia Status: Resolved Priority: High Code(s): E87.5 - HYPERKALEMIA (6) Chronic ischemic colitis, enteritis, or enterocolitis Status: Resolved Priority: High Code(s): K55.1 - CHRONIC VASCULAR DISORDERS OF INTESTINE (7) Anemia associated with chronic renal failure Status: Chronic Priority: High Code(s): N18.9 - CHRONIC KIDNEY DISEASE, UNSPECIFIED; D63.1 - ANEMIA IN CHRONIC KIDNEY DISEASE (8) CAD (coronary artery disease) Status: Chronic Priority: High Code(s): I25.10 - ATHSCL HEART DISEASE OF [place] CORONARY ARTERY W/O ANG PCTRS (9) Atrial fibrillation Status: Chronic Priority: High Code(s): I48.91 - UNSPECIFIED ATRIAL FIBRILLATION - Discharge Discharge Date: 09/22/19 Disposition: DC TO [facility] Condition: Stable Prescriptions: New Furosemide [Lasix] 40 mg PO DAILY #30 tablet Continue Carvedilol 12.5 mg [Coreg 12.5 mg] 12.5 mg PO BID PANTOPRAZOLE 40 mg Tablet [Protonix 40MG Tablet] 40 mg PO DAILY Atorvastatin Calcium [Lipitor] 10 mg PO HS Metformin HCl [Glucophage] 1,000 mg PO BID Clonidine [Catapres-Tts 1] 0.1 mg TD WEEKLY Potassium Chloride 10 Meq Tab* [Klor Con 10 MEQ] 20 meq PO BID Glimepiride 4 mg [Amaryl 4 mg] 4 mg PO DAILY Docusate Sodium 100 mg [Colace 100 MG] 100 mg PO DAILY PRN PRN PRN Reason: Constipation HydrALAzine HCL 25 MG TAB [Apresoline 25 MG TABLET] 25 mg PO QID Additional Instructions: TESS VELÁZQUEZ [facility] ORDERS: PT/OT EVAL AND TREAT REGULAR DIET 1500CC FLUID RESTRICTION (750 DIETARY, 450 DAY, 300 NIGHT) ACCU CHECK AC/HS 4L OXYGEN PER NC SEE ATTACHED MED LIST FOR CURRENT MED ORDERS CBC, BMP EVERY [address] LAU TO FOLLOW AT [facility] Follow up with: BRIDEGT LAU MD [Primary Care Provider] - 1 Week Forms: Transfer Record [employer]
== END 2019-09-22 11:00 | DRG 812 ==
LOC: ED 13:23 → MED SURG 15:24
PROVIDERS: ADMIT General Practice; ATTEND General Practice
DX: D62 Acute posthemorrhagic anemia (principal); N17.9 Acute kidney failure, unspecified; J96.10 Chronic respiratory failure, unspecified whether with hypoxia or hypercapnia; K55.1 Chronic vascular disorders of intestine; I12.9 Hypertensive chronic kidney disease with stage 1 through stage 4 chronic kidney disease, or unspecified chronic kidney disease; E11.22 Type 2 diabetes mellitus with diabetic chronic kidney disease; N18.3 Chronic kidney disease, stage 3 (moderate); E78.00 Pure hypercholesterolemia, unspecified; J44.9 Chronic obstructive pulmonary disease, unspecified; Z99.81 Dependence on supplemental oxygen; R32 Unspecified urinary incontinence; E87.5 Hyperkalemia; Z79.899 Other long term (current) drug therapy; R60.9 Edema, unspecified; I25.10 Atherosclerotic heart disease of native coronary artery without angina pectoris; I48.91 Unspecified atrial fibrillation
CPT/HCPCS: 36000; 36415; 36430; 71045; 80048; 80053; 81001; 82150; 82272; 82550; 82570; 82805; 82962; 83036; 83605; 83690; 83735; 83880; 84156; 84484; 85025; 85027; 85610; 85730; 86850; 86900; 86901; 86922; 93005; 93041; 94760; 96374; 96375; 99285; P9016; 99284; J0610; J1940; A9270-GY

== ENCOUNTER 2019-10-15 17:48 | Inpatient (IN) | payer MEDICARE ==
--- NOTE | 2019-10-15 18:20 | ERPHSYRPT ---
- History of Present Illness Source: patient, family Patient Subjective Stated Complaint: PATIENT STATES HAS HX OF CELLULITIS OVER LAST 3 YEARS. PATIENT CURRENTLY TAKING KEFLEX 500MG QID FOR CELLULITIS TO BILATERAL LOWER EXTREMITIES. PATIENT DAUGHTER STATES PATIENT HAS 15% KIDNEY FUNCTION. PATIENT STATES PAIN BECOMES UNBEARABLE TO LOWER EXTREMITIES FREQUENTLY. Triage Nursing Assessment: PATIENT ARRIVED PER EMT. PATIENT ALERT AND VOCAL UPON ARRIVAL. PATIENT REFUSED TO LET EMT START IV LINE. PATIENT WITH 3+ PITTING EDEMA TO LOWER EXTREMITIES UP TO BILATERAL THIGHS. BILATERAL LOWER EXTREMITIES RED IN COLOR, WARM TO TOUCH, MODERATE TO LARGE AMOUNTS OF CLEAR DRAINAGE NOTED. UPON SKIN ASSESSMENT RESIDENT WITH WOUNDS TO BILATERAL BUTTOCKS. ACCORDING TO STAFF AT [facility] RES[facility] VERY NON-COMPLIANT WITH TAKING LASIX AND ATB. PER [facility] PATIENT ONLY SLEEPS IN CHAIR. RESIDENT CURRENTLY RECEIVING ORAL KEFLIX 500MG QID FOR CELLULITIS. PATIENTS DAUGHTER AT BEDSIDE Timing/Duration: week(s) (1) Quality: burning, painful Severity: severe Location: extremities, genitalia Possible Causes: no cause identified Associated Symptoms: blisters, change in skin texture, edema, malaise Hx Tetanus, Diphtheria Vaccination/Date Given: No Hx Influenza Vaccination/Date Given: No Hx Pneumococcal Vaccination/Date Given: No <ELLIE GATES - Last Filed: 10/15/19 18:25> <ALAINA GILLIAM - Last Filed: 10/15/19 21:24> - History of Present Illness Time Seen by Provider: 10/15/19 18:00 Physician History: PATIENT STATES HAS HX OF CELLULITIS OVER LAST 3 YEARS. PATIENT CURRENTLY TAKING KEFLEX 500MG QID FOR CELLULITIS TO BILATERAL LOWER EXTREMITIES. PATIENT DAUGHTER STATES PATIENT HAS 15% KIDNEY FUNCTION. PATIENT STATES PAIN BECOMES UNBEARABLE TO LOWER EXTREMITIES FREQUENTLY. Non Compliant with care and treatment (ELLIE GATES) Allergies/Adverse Reactions: No Known Drug Allergies Allergy (Verified 10/15/19 18:45) Home Medications: Carvedilol 12.5 mg [Coreg 12.5 mg] 12.5 mg PO BID 05/01/15 [History] Atorvastatin Calcium [Lipitor] 10 mg PO HS 04/24/17 [History] PANTOPRAZOLE 40 mg Tablet [Protonix 40MG Tablet] 40 mg PO DAILY 04/24/17 [ History] Clonidine [Catapres-Tts 1] 0.1 mg TD WEEKLY 01/02/19 [History] Potassium Chloride 10 Meq Tab* [Klor Con 10 MEQ] 20 meq PO BID 01/02/19 [ History] Glimepiride 4 mg [Amaryl 4 mg] 4 mg PO DAILY 03/04/19 [History] Docusate Sodium 100 mg [Colace 100 MG] 100 mg PO DAILY PRN PRN 09/19/19 [ History] HydrALAzine HCL 25 MG TAB [Apresoline 25 MG TABLET] 25 mg PO QID 09/19/19 [History] Acetaminophen 325 mg [Tylenol 325 mg] 650 mg PO Q4H PRN 10/15/19 [History] Cephalexin Mh 500 mg [Keflex 500 mg] 500 mg PO QID 10/15/19 [History] - Review of Systems Constitutional: No Fever, No Chills Eyes: No Symptoms Ears, Nose, & Throat: No Symptoms Respiratory: No Cough, No Dyspnea Cardiac: No Chest Pain, No Edema, No Syncope Abdominal/Gastrointestinal: No Abdominal Pain, No Nausea, No Vomiting, No Diarrhea Genitourinary Symptoms: No Dysuria Musculoskeletal: Other (Painful, Red, Swollen, Draining area on both LEs and buttocks), No Back Pain, No Neck Pain Skin: Other (Painful, Red, Swollen, Draining area on both LEs and buttocks), No Rash Neurological: No Dizziness, No Focal Weakness, No Sensory Changes Psychological: No Symptoms Endocrine: No Symptoms All Other Systems: Reviewed and Negative <ELLIE GATES - Last Filed: 10/15/19 18:25> - Past Medical History Pertinent Past Medical History: Yes Neurological History: Stroke ENT History: Cataracts, Other Cardiac History: Arrhythmia, Congestive Heart Failure, High Cholesterol, Hypertension, Peripheral Vascular Disease Respiratory History: COPD Endocrine Medical History: Diabetes Type II Musculoskeletal History: No Pertinent History GI Medical History: GERD, GI Bleed, Hemorrhoids, Other History: Renal Disease Psycho-Social History: No Pertinent History Male Reproductive Disorders: Prostate Problems Other Medical History: cellulitis. kadeem cataracts. no polyps , but a cluster of veins, enlarge prostate.shingles. dermatitis. Myositis. right sided weakness from stroke. aquired hemolitic anemia. chronic vascular disorder of the kidneys. hx afib. hx pressure ulcer to left buttock - Past Surgical History Past Surgical History: Yes Neuro Surgical History: No Pertinent History Cardiac: Other Respiratory: No Pertinent History Gastrointestinal: No Pertinent History Genitourinary: No Pertinent History Musculoskeletal: Orthopedic Surgery Male Surgical History: No Pertinent History Other Surgical History: kadeem knee surgery. colonoscopy. 3 aortic stents - Social History Smoking Status: Former smoker How long have you smoked: 40 Exposure to second hand smoke: No Drug Use: none Patient Lives Alone: No <ELLIE GATES - Last Filed: 10/15/19 18:25> - Physical Exam General Appearance: no apparent distress, alert Eye Exam: PERRL/EOMI, eyes nml inspection Ears, Nose, Throat Exam: normal ENT inspection, pharynx normal, moist mucous membranes Neck Exam: normal inspection, non-tender, supple, full range of motion Respiratory Exam: normal breath sounds, lungs clear, No respiratory distress Cardiovascular Exam: regular rate/rhythm, normal heart sounds Gastrointestinal/Abdomen Exam: soft, mass, No tenderness Back Exam: normal inspection, normal range of motion, No CVA tenderness, No vertebral tenderness Extremity Exam: normal inspection, normal range of motion, other (Painful, Red, Swollen, Draining area on both LEs and buttocks C/W Cellulitis) Neurologic Exam: alert, oriented x 3, cooperative, normal mood/affect, sensation nml, No motor deficits Skin Exam: normal color, warm, dry, other (Painful, Red, Swollen, Draining area on both LEs and buttocks C/W Cellulitis) SpO2 Interpretation: normal SpO2: 100 O2 Delivery: Room Air <ELLIE GATES - Last Filed: 10/15/19 18:25> - Nursing Vital Signs Nursing Vital Signs: Initial Vital Signs Temperature 97.4 F 10/15/19 17:53 Pulse Rate 85 10/15/19 17:53 Respiratory Rate 20 10/15/19 17:53 Blood Pressure 120/55 10/15/19 17:53 O2 Sat by Pulse Oximetry 100 10/15/19 17:53 Pain Scale Pain Intensity 5 - Course Nursing assessment & vital signs reviewed: Yes <ELLIE GATES - Last Filed: 10/15/19 18:25> - Course Nursing assessment & vital signs reviewed: Yes EKG Interpreted by Me: A-fib, NORMAL AXIS, NORMAL INTERVALS, Non-specific ST Changes, Other (arrythmia/joselito similar to previous which is prev diag as afib) - Radiology Exams Chest X-ray Interpretation: Reviewed by me, No Pneumonia, Other (bprderline cardiomeg - no pulm edema) - Radiology Ultrasound Exam Venous Lower Extremity Ultrasound: Other (no DVTs - discussed with US tech) <ALAINA GILLIAM - Last Filed: 10/15/19 21:24> Ordered Tests: Active Orders 24 hr Category Date Time Status Swimming Pool Service Technician STAT Care 10/15/19 18:20 Active EKG-ER Only STAT Care 10/15/19 19:42 Active IV Insertion STAT Care 10/15/19 18:20 Active IV Insertion-2nd Peripheral STAT Care 10/15/19 19:23 Active Oxygen-ED Only Nasal Cannula 2 lpm Care 10/15/19 19:36 Active Pulse Oximetry (ED) STAT Care 10/15/19 18:20 Active CHEST 1 VIEW (PORTABLE) Stat Exams 10/15/19 19:59 Taken VENOUS BILATERAL EXTREMITY [US] Stat Exams 10/15/19 19:14 Taken BLOOD CULTURE Stat Lab 10/15/19 19:50 Received CBC W DIFF Stat Lab 10/15/19 18:05 Completed CMP Stat Lab 10/15/19 18:05 Completed CULTURE,URINE Stat Lab 10/15/19 18:45 Received LIPASE Stat Lab 10/15/19 18:05 Completed Lactic Acid Stat Lab 10/15/19 18:50 Completed Lactic Acid Stat Lab 10/15/19 20:56 Ordered NT PRO BNP Stat Lab 10/15/19 18:05 Completed PROTIME WITH INR Stat Lab 10/15/19 18:05 Completed PTT Stat Lab 10/15/19 18:05 Completed TROPONIN Q3H Lab 10/15/19 18:05 Completed TROPONIN Q3H Lab 10/15/19 22:45 Ordered TROPONIN Q3H Lab 10/16/19 01:45 Ordered TROPONIN Q3H Lab 10/16/19 04:45 Ordered TROPONIN Q3H Lab 10/16/19 07:45 Ordered UA W/RFX UR CULTURE Stat Lab 10/15/19 18:45 Completed Medication Summary Discontinued Medications Generic Name Dose Route Start Last Admin Trade Name Freq PRN Reason Stop Dose Admin Diphenhydramine HCl 12.5 mg 10/15/19 19:33 10/15/19 19:35 Benadryl 50 Mg/Ml IV 10/15/19 19:34 12.5 mg STAT ONE Administration Diphenhydramine HCl Confirm 10/15/19 19:34 Benadryl 50 Mg/Ml Administered 10/15/19 19:35 Dose 50 mg .ROUTE .STK-MED ONE Famotidine 20 mg 10/15/19 20:40 10/15/19 20:50 Pepcid 20 Mg Vial IV 10/15/19 20:41 20 mg STAT ONE Administration Famotidine Confirm 10/15/19 20:46 Pepcid 20 Mg Vial Administered 10/15/19 20:47 Dose 20 mg IV .STK-MED ONE Ceftriaxone Sodium/Dextrose 1 g in 50 mls @ 100 mls/hr 10/15/19 18:21 19:16 Rocephin 1 Gm-D5w 50 Ml Bag IV 10/15/19 18:50 Infused STAT STA Infusion Ceftriaxone Sodium/Dextrose Confirm 10/15/19 18:40 Rocephin 1 Gm-D5w 50 Ml Bag Administered 10/15/19 18:41 Dose 1 g in 50 mls @ ud IV .STK-MED ONE Vancomycin HCl 1 gm in 250 mls @ 167 mls/hr 10/15/19 19:06 10/15/19 19:14 Vancomycin 1gm/ Ns 250ml IV 10/15/19 20:35 167 mls/hr STAT ONE Administration Vancomycin HCl Confirm 10/15/19 19:13 Vancomycin 1gm/ Ns 250ml Administered 10/15/19 19:14 Dose 250 mls @ ud IV .STK-MED ONE Sodium Chloride Confirm 10/15/19 19:19 Sodium Chloride 0.9% 1000 Ml Administered 10/15/19 19:20 Dose 1,000 mls @ ud .ROUTE .STK-MED ONE Morphine Sulfate 4 mg 10/15/19 18:22 10/15/19 18:45 Morphine Sulfate 4 Mg Inj IV 10/15/19 18:23 4 mg STAT ONE Administration Morphine Sulfate Confirm 10/15/19 18:40 Morphine Sulfate 4 Mg Inj Administered 10/15/19 18:41 Dose 4 mg .ROUTE .STK-MED ONE Morphine Sulfate 4 mg 10/15/19 19:57 10/15/19 20:00 Morphine Sulfate 4 Mg Inj IV 10/15/19 19:58 4 mg STAT ONE Administration Morphine Sulfate Confirm 10/15/19 19:58 Morphine Sulfate 4 Mg Inj Administered 10/15/19 19:59 Dose 4 mg .ROUTE .STK-MED ONE Ondansetron HCl 4 mg 10/15/19 18:22 10/15/19 18:45 Zofran 4 Mg/2 Ml Vial IV 10/15/19 18:23 4 mg STAT ONE Administration Ondansetron HCl Confirm 10/15/19 18:40 Zofran 4 Mg/2 Ml Vial Administered 10/15/19 18:41 Dose 4 mg .ROUTE .STK-MED ONE Pantoprazole Sodium 40 mg 10/15/19 20:41 10/15/19 20:50 Protonix 40 Mg Iv IV 10/15/19 20:42 40 mg STAT ONE Administration Pantoprazole Sodium Confirm 10/15/19 20:46 Protonix 40 Mg Iv Administered 10/15/19 20:47 Dose 40 mg IV .STK-MED ONE Lab/Rad Data: Laboratory Result Diagrams 10/15/19 18:05 10/15/19 18:05 Laboratory Results 10/15/19 10/15/19 10/15/19 Range/Units 19:50 19:50 18:50 WBC (4.0-10.5) K/mm3 RBC (4.1-5.6) M/mm3 Hgb (12.5-18.0) gm/dl Hct (42-50) % MCV (78-100) fl MCH (26-32) pg MCHC (32-36) g/dl RDW (11.5-14.0) % Plt Count (150-450) K/mm3 MPV (6-9.5) fl Gran % (36.0-66.0) % Eos # (Auto) (0-0.5) Absolute Lymphs (auto) (1.0-4.6) Absolute Monos (auto) (0.0-1.3) Lymphocytes % (24.0-44.0) % Monocytes % (0.0-12.0) % Eosinophils % (0.00-5.0) % Basophils % (0.0-0.4) % Absolute Granulocytes (1.4-6.9) Basophils # (0-0.4) PT (8.83-12.87) SECONDS INR (0.8-3.0) APTT (24.1-36.1) SECONDS Sodium (137-145) mmol/L Potassium (3.5-5.1) mmol/L Chloride (98-107) mmol/L Carbon Dioxide (22-30) mmol/L Anion Gap (5-15) MEQ/L BUN (9-20) mg/dL Creatinine (0.66-1.25) mg/dL Estimated GFR ML/MIN Glucose (74-106) mg/dL Lactic Acid 2.1 H (0.4-2.0) Calcium (8.4-10.2) mg/dL Total Bilirubin (0.2-1.3) mg/dL AST (17-59) U/L ALT (0-50) U/L Alkaline Phosphatase (38-126) U/L Troponin I (0.000-0.034) ng/mL NT-Pro-B Natriuret Pep (0-1800) pg/mL Serum Total Protein (6.3-8.2) g/dL Albumin (3.5-5.0) g/dL Lipase (23-300) U/L Urine Color (YELLOW) Urine Appearance (CLEAR) Urine pH (5-6) Ur Specific [place] (1.005-1.025) Urine Protein (Negative) Urine Ketones (NEGATIVE) Urine Blood (0-5) Crescencio/ul Urine Nitrite (NEGATIVE) Urine Bilirubin (NEGATIVE) Urine Urobilinogen (0-1) mg/dL Ur Leukocyte Esterase (NEGATIVE) Urine WBC (Auto) (0-5) /HPF Urine RBC (Auto) (0-2) /HPF U Hyaline Cast (Auto) (0-2) /LPF U Epithel Cells (Auto) (FEW) /HPF Urine Bacteria (Auto) (NEGATIVE) /HPF Urine Mucus (Auto) (NEGATIVE) /HPF Urine Culture Reflexed (NO) Urine Glucose (NEGATIVE) mg/dL ABO Group A Rh Factor POSITIVE Antibody Screen NEGATIVE (NEGATIVE) Crossmatch COMPATIBLE COMPATIBLE (COMPATIBLE) 10/15/19 10/15/19 10/15/19 Range/Units 18:45 18:05 18:05 WBC (4.0-10.5) K/mm3 RBC (4.1-5.6) M/mm3 Hgb (12.5-18.0) gm/dl Hct (42-50) % MCV (78-100) fl MCH (26-32) pg MCHC (32-36) g/dl RDW (11.5-14.0) % Plt Count (150-450) K/mm3 MPV (6-9.5) fl Gran % (36.0-66.0) % Eos # (Auto) (0-0.5) Absolute Lymphs (auto) (1.0-4.6) Absolute Monos (auto) (0.0-1.3) Lymphocytes % (24.0-44.0) % Monocytes % (0.0-12.0) % Eosinophils % (0.00-5.0) % Basophils % (0.0-0.4) % Absolute Granulocytes (1.4-6.9) Basophils # (0-0.4) PT (8.83-12.87) SECONDS INR (0.8-3.0) APTT (24.1-36.1) SECONDS Sodium (137-145) mmol/L Potassium (3.5-5.1) mmol/L Chloride (98-107) mmol/L Carbon Dioxide (22-30) mmol/L Anion Gap (5-15) MEQ/L BUN (9-20) mg/dL Creatinine (0.66-1.25) mg/dL Estimated GFR ML/MIN Glucose (74-106) mg/dL Lactic Acid (0.4-2.0) Calcium (8.4-10.2) mg/dL Total Bilirubin (0.2-1.3) mg/dL AST (17-59) U/L ALT (0-50) U/L Alkaline Phosphatase (38-126) U/L Troponin I < 0.012 (0.000-0.034) ng/mL NT-Pro-B Natriuret Pep 7650 H (0-1800) pg/mL Serum Total Protein (6.3-8.2) g/dL Albumin (3.5-5.0) g/dL Lipase 506 H (23-300) U/L Urine Color YELLOW (YELLOW) Urine Appearance CLEAR (CLEAR) Urine pH 5.0 (5-6) Ur Specific [place] 1.016 (1.005-1.025) Urine Protein NEGATIVE (Negative) Urine Ketones NEGATIVE (NEGATIVE) Urine Blood NEGATIVE (0-5) Crescencio/ul Urine Nitrite NEGATIVE (NEGATIVE) Urine Bilirubin NEGATIVE (NEGATIVE) Urine Urobilinogen NEGATIVE (0-1) mg/dL Ur Leukocyte Esterase NEGATIVE (NEGATIVE) Urine WBC (Auto) NONE (0-5) /HPF Urine RBC (Auto) NONE (0-2) /HPF U Hyaline Cast (Auto) 0-2 (0-2) /LPF U Epithel Cells (Auto) NONE (FEW) /HPF Urine Bacteria (Auto) NONE (NEGATIVE) /HPF Urine Mucus (Auto) SLIGHT (NEGATIVE) /HPF Urine Culture Reflexed ORDERED SEPARATELY (NO) Urine Glucose NEGATIVE (NEGATIVE) mg/dL ABO Group Rh Factor Antibody Screen (NEGATIVE) Crossmatch (COMPATIBLE) 10/15/19 10/15/19 10/15/19 Range/Units 18:05 18:05 18:05 WBC 6.9 (4.0-10.5) K/mm3 RBC 2.85 L (4.1-5.6) M/mm3 Hgb 6.8 L* (12.5-18.0) gm/dl Hct 23.2 L (42-50) % MCV 81.4 (78-100) fl MCH 23.9 L (26-32) pg MCHC 29.3 L (32-36) g/dl RDW 22.9 H (11.5-14.0) % Plt Count 285 (150-450) K/mm3 MPV 10.1 H (6-9.5) fl Gran % 77.2 H (36.0-66.0) % Eos # (Auto) 0.23 (0-0.5) Absolute Lymphs (auto) 0.53 L (1.0-4.6) Absolute Monos (auto) 0.80 (0.0-1.3) Lymphocytes % 7.6 L (24.0-44.0) % Monocytes % 11.5 (0.0-12.0) % Eosinophils % 3.3 (0.00-5.0) % Basophils % 0.4 (0.0-0.4) % Absolute Granulocytes 5.35 (1.4-6.9) Basophils # 0.03 (0-0.4) PT 12.8 (8.83-12.87) SECONDS INR 1.13 (0.8-3.0) APTT 33.5 (24.1-36.1) SECONDS Sodium 143 (137-145) mmol/L Potassium 5.6 H (3.5-5.1) mmol/L Chloride 108 H (98-107) mmol/L Carbon Dioxide 25 (22-30) mmol/L Anion Gap 15.9 H (5-15) MEQ/L BUN 56 H (9-20) mg/dL Creatinine 1.72 H (0.66-1.25) mg/dL Estimated GFR 41.0 ML/MIN Glucose 268 H (74-106) mg/dL Lactic Acid (0.4-2.0) Calcium 8.7 (8.4-10.2) mg/dL Total Bilirubin 0.50 (0.2-1.3) mg/dL AST 31 (17-59) U/L ALT 31 (0-50) U/L Alkaline Phosphatase 119 (38-126) U/L Troponin I (0.000-0.034) ng/mL NT-Pro-B Natriuret Pep (0-1800) pg/mL Serum Total Protein 6.4 (6.3-8.2) g/dL Albumin 3.1 L (3.5-5.0) g/dL Lipase (23-300) U/L Urine Color (YELLOW) Urine Appearance (CLEAR) Urine pH (5-6) Ur Specific [place] (1.005-1.025) Urine Protein (Negative) Urine Ketones (NEGATIVE) Urine Blood (0-5) Crescencio/ul Urine Nitrite (NEGATIVE) Urine Bilirubin (NEGATIVE) Urine Urobilinogen (0-1) mg/dL Ur Leukocyte Esterase (NEGATIVE) Urine WBC (Auto) (0-5) /HPF Urine RBC (Auto) (0-2) /HPF U Hyaline Cast (Auto) (0-2) /LPF U Epithel Cells (Auto) (FEW) /HPF Urine Bacteria (Auto) (NEGATIVE) /HPF Urine Mucus (Auto) (NEGATIVE) /HPF Urine Culture Reflexed (NO) Urine Glucose (NEGATIVE) mg/dL ABO Group Rh Factor Antibody Screen (NEGATIVE) Crossmatch (COMPATIBLE) <ELLIE GATES - Last Filed: 10/15/19 18:25> - Progress Progress: improved, re-examined Discussed with : Laura Will see patient in: hospital (full admit) Counseled pt/family regarding: lab results, diagnosis, need for follow-up, rad results <ALAINA GILLIAM - Last Filed: 10/15/19 21:24> - Progress Progress Note: 10/15/19 18:40 pt received in [facility] tubbs of shift from Dr. Gates after discussion of findings , pending studies and intro to pt ; 10/15/19 19:16 discussed risk and benefit of transfusion with pt and family and they wish to proceed; discussed options and risk for DVT adn they choose US and will decide tx if DVT found later - he is with many risks such as tries to avoid blood thinners due to hx LGI bleeding; He has hx CVA in past but no new focal deficits since CVA in 2018; chronic right sided weakness without change; 10/15/19 19:33 pt has itch from morphine , will give reduced dose of benadryl' 10/15/19 20:03 pt is in chronic afib but cannot yadira AC due to colonic bleeding even on ASA. the rate is well controlled on meds; the pt and family are aware of and accept the afib risk for additional CVA and complications. 10/15/19 20:08 10/15/19 20:11 code status was discussed with daughter and and pt and they still wish full code at this time; 10/15/19 21:22 discussed with pt, , adn Dr. Munguia covering for Dr. Thomson and all agre best to place the pt in on full admit and begin therapy for multiple conditions (ALAINA GILLIAM) <ELLIE GATES - Last Filed: 10/15/19 18:25> - Departure Departure Disposition: In-patient Admission Critical Care Time: No <ALAINA GILLIAM - Last Filed: 10/15/19 21:24> - Departure Clinical Impression: Bilateral cellulitis of lower leg, Atrial fibrillation, Renal insufficiency, Pancreatitis, Intractable pain, Chronic anemia, Diabetes mellitus Condition: Fair Referrals: BENEDICTO VELÁZQUEZ [Primary Care Provider] -
[2019-10-15] MEDS ORDERED: ROCEPHIN 1 Gm-D5w 50 ml Bag** 1 G/50 ML IVPB IV STA (18:21)
[2019-10-15] MEDS ORDERED: MORPHINE SULFATE 4 MG INJ IV ONE ×2 (18:22→19:57)
[2019-10-15] MEDS ORDERED: Zofran 4 MG/2 ML VIAL IV ONE (18:22)
[2019-10-15] MEDS ORDERED: ROCEPHIN 1 Gm-D5w 50 ml Bag** 1 G/50 ML IVPB IV ONE (18:40)
[2019-10-15] MEDS ORDERED: MORPHINE SULFATE 4 MG INJ ONE ×2 (18:40→19:58)
[2019-10-15] MEDS ORDERED: Zofran 4 MG/2 ML VIAL ONE (18:40)
[2019-10-15 18:41] LABS: INR 1.13 (0.8-3.0); PROTIME 12.8 SECONDS (8.83-12.87)
[2019-10-15 18:44] LABS: Absolute Neutrophil Ct (ANC) 5.35 (1.4-6.9); BASOPHIL % 0.4 % (0.0-0.4); Basophil (Absolute #) 0.03 (0-0.4); Eosinophil % 3.3 % (0.00-5.0); Eosinophil (Absolute #) 0.23 (0-0.5); Hematocrit 23.2 % (42-50); Lymphocyte (Absolute #) 0.53 (1.0-4.6); Lymphocytes % 7.6 % (24.0-44.0); Mean Cell Volume 81.4 fl (78-100); Mean Corpuscular Hemoglobin 23.9 pg (26-32); Mean Corpuscular Hgb Concent. 29.3 g/dl (32-36); Mean Platelet Volume 10.1 fl (6-9.5); Monocytes % 11.5 % (0.0-12.0); Neutrophil % 77.2 % (36.0-66.0); PTT 33.5 SECONDS (24.1-36.1); Platelet Count 285 K/mm3 (150-450); Red Blood Count 2.85 M/mm3 (4.1-5.6); Red Cell Distribution Width 22.9 % (11.5-14.0); White Blood Count 6.9 K/mm3 (4.0-10.5)
[2019-10-15 18:46] LABS: ALBUMIN 3.1 g/dL (3.5-5.0); ANION GAP 15.9 MEQ/L (5-15); BILIRUBIN,TOTAL 0.5 mg/dL (0.2-1.3); Calcium 8.7 mg/dL (8.4-10.2); Creatinine 1 1.72 mg/dL (0.66-1.25); Potassium 5.6 mmol/L (3.5-5.1); Total Protein 6.4 g/dL (6.3-8.2)
[2019-10-15 18:50] LABS: Hemoglobin 6.8 gm/dl (12.5-18.0)
[2019-10-15 18:56] LABS: Appearance CLEAR (CLEAR); Bilirubin NEGATIVE (NEGATIVE); Blood NEGATIVE Ery/ul (0-5); Glucose NEGATIVE (NEGATIVE); Hyaline Casts 0-2 /LPF (0-2); Ketones NEGATIVE (NEGATIVE); Leukocyte Esterase NEGATIVE (NEGATIVE); Mucus SLIGHT /HPF (NEGATIVE); Nitrite NEGATIVE (NEGATIVE); Protein,Urine Dip NEGATIVE (Negative); Specific Gravity 1.016 (1.005-1.025); Urobilinogen NEGATIVE mg/dL (0-1)
[2019-10-15 18:56] LABS: Lactic Acid 2.1 (0.4-2.0)
[2019-10-15] MEDS ORDERED: Vancomycin 1GM/ Ns 250ML*** 1 GM/250 ML IVPB IV ONE (19:06)
[2019-10-15] MEDS ORDERED: Vancomycin 1GM/ Ns 250ML*** 250 ML IV ONE (19:13)
[2019-10-15] MEDS ORDERED: Sodium Chloride 0.9% 1000 ML 1,000 ML ONE (19:19)
[2019-10-15] MEDS ORDERED: BENADRYL 50 MG/ML IV ONE (19:33)
[2019-10-15] MEDS ORDERED: BENADRYL 50 MG/ML ONE (19:34)
[2019-10-15 20:13] LABS: LIPASE 506 U/L (23-300); NT PRO BNP 7650 pg/mL (0-1800)
[2019-10-15 20:32] LABS: ABO TYPING A; Antibody Screen NEGATIVE (NEGATIVE); RH TYPING POSITIVE
[2019-10-15 20:35] LABS: CROSS MATCH (PRBC) COMPATIBLE (COMPATIBLE)
[2019-10-15] MEDS ORDERED: Pepcid 20 MG VIAL IV ONE ×2 (20:40→20:46)
[2019-10-15] MEDS ORDERED: PROTONIX 40 MG IV IV ONE ×2 (20:41→20:46)
[2019-10-15] MEDS ORDERED: DILAUDID 2 MG INJECTION IV PRN (21:51)
[2019-10-15] MEDS ORDERED: Zofran 4 MG/2 ML VIAL IV PRN (21:51)
[2019-10-15] MEDS ORDERED: MORPHINE SULFATE 4 MG INJ IV PRN (21:51)
[2019-10-15] MEDS ORDERED: Lasix 20 MG/2 ML IV PRN (23:07)
[2019-10-15] MEDS: VANCOCIN 1 GM VIAL*** 1 GM in Sodium Chloride 0.9% 250 ML 250 ML IV SCH (23:34)
[2019-10-15] MEDS: Apresoline 25 MG TABLET PO SCH (23:41)
[2019-10-15] MEDS: COREG 12.5 MG PO SCH (23:41)
[2019-10-15] MEDS: Zosyn 3.375GM/100 Ml D5W 3.375 GM/100 ML IVPB IV SCH (23:41)
[2019-10-15] MEDS: Pepcid 20 MG VIAL IV SCH (23:44)
[2019-10-15 23:47] LABS: Slide Review 1 YES
[2019-10-16] MEDS: Zosyn 3.375GM/100 Ml D5W 3.375 GM/100 ML IVPB IV SCH ×2 (06:26→14:02)
[2019-10-16 06:29] LABS: Hematocrit 30.3 % (42-50); Hemoglobin 9.1 gm/dl (12.5-18.0); Mean Corpuscular Hemoglobin 24.9 pg (26-32); Mean Platelet Volume 10.6 fl (6-9.5); Platelet Count 251 K/mm3 (150-450); Red Blood Count 3.65 M/mm3 (4.1-5.6); Red Cell Distribution Width 21.8 % (11.5-14.0); White Blood Count 7.5 K/mm3 (4.0-10.5)
[2019-10-16 06:49] LABS: ALBUMIN 3.1 g/dL (3.5-5.0); ANION GAP 14.9 MEQ/L (5-15); BILIRUBIN,TOTAL 0.7 mg/dL (0.2-1.3); Calcium 8.6 mg/dL (8.4-10.2); Creatinine 1 1.8 mg/dL (0.66-1.25); Potassium 5.6 mmol/L (3.5-5.1); Total Protein 6.5 g/dL (6.3-8.2)
[2019-10-16 07:45] LABS: ANISOCYTOSIS 2+; BAND 3 % (0.0-2.0); Basophil 1 % (0.0-1.0); Eosinophil 6 % (0.00-3.0); Hypochromia 1+; Lymphocytes 9 % (24-44); Monocyte 13 % (0.0-12.0); Neutrophils 68 % (36.-66.); Platelet Estimate NORMAL (NORMAL); Poikilocytosis 2+; Polychromasia 1+; Total Cells Counted 100
[2019-10-16] MEDS ORDERED: AMARYL 4 MG PO SCH (08:00)
--- NOTE | 2019-10-16 08:41 | XRAY ---
Indication: Bilateral lower extremity swelling, erythema, and cellulitis. 2-dimensional sonogram and color Doppler imaging of the major venous vessels of the left and right leg was performed. Comparison: None Liaison Planner notes technically difficult exam due to patient's pain/discomfort. No thrombus seen in the examined deep venous vessels of the left and right leg including greater saphenous vein. Veins demonstrate normal compressibility. Venous waveforms are normal with and without augmentation. Impression: Left and right legs negative for DVT. Comment: Preliminary report was given.
--- NOTE | 2019-10-16 08:44 | XRAY ---
Indication: Right lung rales. Comparison: September 20, 2019. Portable chest again demonstrates right costophrenic angle blunting favoring mild pleural effusion/pleural thickening and stable cardiomegaly. Remaining lungs clear. No new/acute findings.
[2019-10-16] MEDS: COREG 12.5 MG PO SCH ×2 (09:56→21:54)
[2019-10-16] MEDS: Apresoline 25 MG TABLET PO SCH ×4 (09:57→21:53)
[2019-10-16] MEDS: Pepcid 20 MG VIAL IV SCH ×2 (09:57→21:58)
[2019-10-16] MEDS ORDERED: PROTONIX 40 MG IV IV SCH (10:00)
[2019-10-16] MEDS ORDERED: Colace 100 MG PO SCH (10:00)
[2019-10-16] MEDS ORDERED: Lasix 40 MG PO SCH (10:00)
[2019-10-16] MEDS ORDERED: TYLENOL 325 MG PO PRN (11:57)
[2019-10-16] MEDS: NovoLIN R SQ PRN ×3 (14:03→22:04)
[2019-10-16] MEDS ORDERED: Colace 100 MG PO PRN (15:25)
[2019-10-16] MEDS: Klor Con 10 MEQ PO SCH (21:54)
[2019-10-16] MEDS: Zocor 10MG PO SCH (21:54)
[2019-10-16] MEDS ORDERED: NON-FORMULARY ITEM (Atorvastatin Calcium [Lipitor] 10 MG) PO SCH (22:00)
[2019-10-16] MEDS ORDERED: Zocor 10MG PO SCH (22:00)
[2019-10-16] MEDS: VANCOCIN 1 GM VIAL*** 1 GM in Sodium Chloride 0.9% 250 ML 250 ML IV SCH (22:01)
[2019-10-17] MEDS: Zosyn 3.375GM/100 Ml D5W 3.375 GM/100 ML IVPB IV SCH ×4 (00:25→23:48)
[2019-10-17 06:26] LABS: Hematocrit 27.9 % (42-50); Hemoglobin 8.5 gm/dl (12.5-18.0); Mean Cell Volume 81.6 fl (78-100); Mean Corpuscular Hemoglobin 24.9 pg (26-32); Mean Corpuscular Hgb Concent. 30.5 g/dl (32-36); Mean Platelet Volume 10.3 fl (6-9.5); Platelet Count 252 K/mm3 (150-450); Red Blood Count 3.42 M/mm3 (4.1-5.6); Red Cell Distribution Width 21.9 % (11.5-14.0); White Blood Count 9.3 K/mm3 (4.0-10.5)
[2019-10-17 06:52] LABS: ALBUMIN 2.9 g/dL (3.5-5.0); ANION GAP 14.9 MEQ/L (5-15); BILIRUBIN,TOTAL 0.7 mg/dL (0.2-1.3); Calcium 8.5 mg/dL (8.4-10.2); Creatinine 1 2.14 mg/dL (0.66-1.25); Potassium 5.3 mmol/L (3.5-5.1); Total Protein 6.3 g/dL (6.3-8.2)
[2019-10-17] MEDS: COREG 12.5 MG PO SCH ×2 (10:03→21:15)
[2019-10-17] MEDS: Apresoline 25 MG TABLET PO SCH ×4 (10:03→21:14)
[2019-10-17] MEDS: Protonix 40MG Tablet PO SCH (10:03)
[2019-10-17] MEDS: Klor Con 10 MEQ PO SCH ×2 (10:04→21:15)
[2019-10-17] MEDS: Pepcid 20 MG VIAL IV SCH ×2 (10:04→21:09)
[2019-10-17] MEDS: Sodium Chloride 0.9% 1000 ML 1,000 ML IV SCH (10:12)
[2019-10-17] MEDS: NovoLIN R SQ PRN ×2 (17:05→21:17)
[2019-10-17] MEDS: VANCOCIN 1 GM VIAL*** 1 GM in Sodium Chloride 0.9% 250 ML 250 ML IV SCH (21:04)
[2019-10-17] MEDS: Zocor 10MG PO SCH (21:15)
[2019-10-18 05:25] LABS: Hematocrit 28.4 % (42-50); Hemoglobin 8.6 gm/dl (12.5-18.0); Mean Cell Volume 82.3 fl (78-100); Mean Corpuscular Hemoglobin 24.9 pg (26-32); Mean Corpuscular Hgb Concent. 30.3 g/dl (32-36); Mean Platelet Volume 10.2 fl (6-9.5); Platelet Count 247 K/mm3 (150-450); Red Blood Count 3.45 M/mm3 (4.1-5.6); Red Cell Distribution Width 22.4 % (11.5-14.0); White Blood Count 8.6 K/mm3 (4.0-10.5)
[2019-10-18 05:30] LABS: ALBUMIN 3.1 g/dL (3.5-5.0); BILIRUBIN,TOTAL 0.6 mg/dL (0.2-1.3); Calcium 8.6 mg/dL (8.4-10.2); Creatinine 1 1.95 mg/dL (0.66-1.25); Potassium 5.3 mmol/L (3.5-5.1); Total Protein 6.7 g/dL (6.3-8.2)
[2019-10-18 05:59] LABS: Slide Review YES
[2019-10-18] MEDS: Zosyn 3.375GM/100 Ml D5W 3.375 GM/100 ML IVPB IV SCH ×3 (06:28→21:20)
--- NOTE | 2019-10-18 08:11 | HP ---
CHIEF COMPLAINT: Leg swelling and pain. HISTORY OF PRESENT ILLNESS: The patient is a 79 year-old white male patient living at [facility]. He has had problems with cellulitis previously over his lower extremities. He also has decubitus ulcers on his buttocks from being unable to ambulate on his own. The patient had been treated fairly recently for similar problems with cellulitis with IV antibiotics and recently released back to [facility]. The patient has been admitted for IV Zosyn and Vancomycin. PAST MEDICAL/SURGICAL HISTORY: The patient's medical history otherwise significant for diabetes mellitus type 2. He has had previous knee surgery, history of lower GI bleeds. He has had previous deep venous thrombosis and atrial fibrillation but he is not on anticoagulant due to the fact that he has been anemic receiving transfusions about every two weeks for what appears to be lower GI bleed that is just intermittent. The patient also previously had three aortic stents placed. HOME MEDICATIONS: Carvedilol 12.5 mg b.i.d., Atorvastatin 10 mg a day, pantoprazole 40 mg a day, Catapres 0.1 mg patch weekly, potassium 20 mEq b.i.d., glimepiride 4 mg a day, Colace 100 mg b.i.d., hydralazine 25 mg four times a day, Keflex 500 mg q.i.d. ALLERGIES: NKDA. PHYSICAL EXAMINATION: His vital signs on admission showed temperature 97.4F, pulse 85, respiratory rate 20, blood pressure 120/55. O2 saturation 100%. HEENT: Normocephalic, atraumatic. Pupils equal round reactive to light. He was noted to be very hard of hearing. NECK: Supple without lymphadenopathy, thyromegaly or JVD. CHEST: Clear to auscultation. HEART: Currently irregular but controlled. ABDOMEN: Soft without palpable masses. EXTREMITIES: Lower extremities showed lymphedema and cellulitis extending upwards to the posterior thigh and buttocks area. LAB DATA AND TESTS: His labs initially showed his hemoglobin to be 6.8, white count 6,900 and his PLT count 285,000. The patient's hemoglobin sonya to 9.1 after treating with some packed red blood cells. His sugar nonfasting was 268, BUN 56, creatinine 1.72. Potassium was elevated at 5.6 initially. Liver enzymes were normal. International normalized ratio was 1.13. UA was normal. Lactic acid was 2.1 initially. ProBNP was 7,650. Lipase slightly elevated to 506. Troponin was less than 0.012. ASSESSMENT: A patient with cellulitis, lymphedema. He has improved after IV Lasix and IV antibiotics. The patient reports the pain is much better but the legs are peeling and quite red otherwise. We will continue the IV antibiotic course. We will be checking the sugars, moderate dose sliding scale coverage and monitoring closely for the potential development of Marleen's gangrene.
[2019-10-18] MEDS: Sodium Chloride 0.9% 1000 ML 1,000 ML IV SCH (09:50)
[2019-10-18] MEDS: Apresoline 25 MG TABLET PO SCH ×4 (09:51→21:20)
[2019-10-18] MEDS: Protonix 40MG Tablet PO SCH (09:52)
[2019-10-18] MEDS: COREG 12.5 MG PO SCH ×2 (09:52→21:57)
[2019-10-18] MEDS: Pepcid 20 MG VIAL IV SCH ×2 (09:52→21:57)
[2019-10-18] MEDS: Klor Con 10 MEQ PO SCH ×2 (09:52→21:20)
[2019-10-18] MEDS ORDERED: Catapres-TTS 1 PATCH TD SCH (10:00)
[2019-10-18] MEDS: NovoLIN R SQ PRN ×2 (12:48→18:26)
--- NOTE | 2019-10-18 13:09 | PCM.NOTE ---
Date and Time: 10/18/19 1309 Subjective Assessment: doing ok - Review of Systems Constitutional: No Fever, No Chills Eyes: No Symptoms Ears, Nose, & Throat: No Symptoms Respiratory: Orthopnea, Short Of Breath, Wheezing, No Cough Cardiac: No Chest Pain, No Edema, No Syncope Abdominal/Gastrointestinal: No Abdominal Pain, No Nausea, No Vomiting, No Diarrhea Genitourinary Symptoms: No Dysuria Musculoskeletal: No Back Pain, No Neck Pain Skin: No Rash Neurological: Focal Weakness, No Dizziness, No Sensory Changes Psychological: No Symptoms Endocrine: No Symptoms Hematologic/Lymphatic: No Symptoms Immunological/Allergic: No Symptoms Objective Exam General Appearance: no apparent distress, alert Neurologic Exam: alert, oriented x 3, cooperative, normal mood/affect, nml cerebellar function, sensation nml, No motor deficits Skin Exam: normal color, warm, dry Wound Assessment: Skin/Wound Assessment Wound/Incision Assessment Start: 10/15/19 21: 34 Text: Status: Active Freq: Q6H Protocol: Document 10/18/19 08:00 BE (Rec: 10/18/19 11:48 BE [id number]) Wound/Incision Assessment Calf Wound Assessment Shift Assessment Wound Stage Non Pressure Wound Drainage Amount Moderate Drainage Description Serous General Appearance Open to air Wound Bed Greatest Portion Red (Granulation) Wound Bed Lesser Portion Red (Granulation) Shiny Surrounding Tissue Dark Red Edematous Weeping Comment BLE erythema, draining moderate amount of clear fluid , open to air, barrier cream applied by staff. Posterior Buttock Wound Assessment Shift Assessment Wound Type Pressure Ulcer Wound Stage Stage II Drainage Amount None General Appearance Open to air Reddened Wound Bed Greatest Portion Red (Granulation) Surrounding Tissue Bright Red Purple Comment open areas to buttocks and scrotum, skin sloughing off, open to air, zinc/barrier applied and weight shift and repositioning encouraged. Eye Exam: PERRL, EOMI, eyes nml inspection Ears, Nose, Throat Exam: normal ENT inspection, pharynx normal, moist mucous membranes Neck Exam: normal inspection, non-tender, supple, full range of motion Respiratory Exam: diminished breath sounds, No respiratory distress Cardiovascular Exam: capillary refill 2-3 sec, edema, pulse deficit Gastrointestinal/Abdomen Exam: soft, No tenderness, No mass Extremity Exam: normal inspection, normal range of motion Back Exam: normal inspection, normal range of motion, No CVA tenderness, No vertebral tenderness Male Genitalia Exam: deferred Rectal Exam: deferred OBJECTIVE DATA Vital Signs: Vital Signs - 24 hr Temp Pulse Resp BP Pulse Ox 10/18/19 11:42 98.4 F 74 18 129/71 96 10/18/19 08:01 99 10/18/19 07:16 98.3 F 71 18 136/63 94 L 10/18/19 04:00 97.9 F 74 20 146/75 97 10/18/19 01:04 96 10/17/19 23:50 97.9 F 72 18 130/60 98 10/17/19 19:59 98.1 F 73 20 130/60 98 10/17/19 16:00 98.0 F 74 18 136/62 98 Oxygen-Last 24 hours O2 Percentage 3 Liters = 32% O2 Percentage 3 Liters = 32% O2 Percentage 3 Liters = 32% O2 Percentage 3 Liters = 32% O2 Percentage 3 Liters = 32% O2 Percentage 3 Liters = 32% Pain Assessment - Last Documented Pain Intensity 1 Pain Scale Used FLACC Intake and Output: Intake & Output 10/16/19 10/17/19 10/18/19 10/19/19 11:59 11:59 11:59 11:59 Intake Total 2324 2424 2461 Output Total 510 1405 1175 Balance 1814 1019 1286 Weight 101 kg 99.6 kg Lab Results: Accuchecks Date 10/18/19 Date 10/18/19 Date 10/17/19 Date 10/17/19 Time 11:30 Time 07:30 Time 22:00 Time 16:30 Accucheck Value: 362 Accucheck Value: 118 Accucheck Value: 257 Accucheck Value: 334 Lab Results-Last 24 Hours 10/18/19 10/18/19 Range/Units 04:43 04:43 WBC 8.6 (4.0-10.5) K/mm3 RBC 3.45 L (4.1-5.6) M/mm3 Hgb 8.6 L (12.5-18.0) gm/dl Hct 28.4 L (42-50) % MCV 82.3 (78-100) fl MCH 24.9 L (26-32) pg MCHC 30.3 L (32-36) g/dl RDW 22.4 H (11.5-14.0) % Plt Count 247 (150-450) K/mm3 MPV 10.2 H (6-9.5) fl Sodium 142 (137-145) mmol/L Potassium 5.3 H (3.5-5.1) mmol/L Chloride 109 H (98-107) mmol/L Carbon Dioxide 22 (22-30) mmol/L Anion Gap 16.0 H (5-15) MEQ/L BUN 55 H (9-20) mg/dL Creatinine 1.95 H (0.66-1.25) mg/dL Estimated GFR 35.4 ML/MIN Glucose 118 H (74-106) mg/dL Calcium 8.6 (8.4-10.2) mg/dL Total Bilirubin 0.60 (0.2-1.3) mg/dL AST 24 (17-59) U/L ALT 27 (0-50) U/L Alkaline Phosphatase 121 (38-126) U/L Serum Total Protein 6.7 (6.3-8.2) g/dL Albumin 3.1 L (3.5-5.0) g/dL Slides for Path Review YES Assessment/Plan (1) Bilateral cellulitis of lower leg Current Visit: Yes Status: Acute Assessment & Plan: Last Vital Signs Temp 98.4 F 10/18/19 11:42 Pulse 74 10/18/19 11:42 Resp 18 10/18/19 11:42 BP 129/71 10/18/19 11:42 Pulse Ox 96 10/18/19 11:42 Allergies No Known Drug Allergies Allergy (Verified 10/15/19 22:49) Active Medications Acetaminophen (Tylenol 325 Mg) 650 mg PO Q4H PRN PRN Reason: PAIN Stop: 11/15/19 11:56 Carvedilol (Coreg 12.5 Mg) 12.5 mg PO BID CRISTINO Stop: 11/15/19 21:59 Last Admin: 10/18/19 09:52 Dose: 12.5 mg Clonidine HCl (Catapres-Tts 1 Patch) 0.1 mg TD WEEKLY CRISTINO Stop: 11/17/19 09:59 Device (Trough Drug Levels) 1 IJ 1XONLY ONE Stop: 10/18/19 21:01 Docusate Sodium (Colace 100 Mg) 100 mg PO DAILY PRN PRN Reason: CONSTIPATION Stop: 11/15/19 09:59 Last Admin: 10/17/19 10:04 Dose: 100 mg Famotidine (Pepcid 20 Mg Vial) 20 mg IV Q12HT [facility] [place] Stop: 11/14/19 21:59 Last Admin: 10/18/19 09:52 Dose: 20 mg Hydralazine HCl (Apresoline 25 Mg Tablet) 25 mg PO QID [facility] [place] Stop: 11/14/19 21:59 Last Admin: 10/18/19 09:51 Dose: 25 mg Hydromorphone HCl (Dilaudid 2 Mg Injection) 0.5 mg IV Q4H PRN PRN PRN Reason: PAIN Stop: 10/20/19 21:50 Vancomycin HCl 1 gm/ Sodium (Chloride) 250 mls @ 167 mls/hr IV Q24H [facility] [place] Stop: 11/14/19 21:50 Last Admin: 10/17/19 21:04 Dose: 167 mls/hr Piperacillin Sod/Tazobactam Sod (Zosyn 3.375gm/100 Ml D5w) 3.375 gm in 100 mls @ 200 mls/hr IV Q8HT [facility] [place] Stop: 11/15/19 00:00 Last Admin: 10/18/19 06:28 Dose: 200 mls/hr Sodium Chloride (Sodium Chloride 0.9% 1000 Ml) 1,000 mls @ 125 mls/hr IV .Q8H [facility] [place] Stop: 11/16/19 09:14 Last Admin: 10/18/19 09:50 Dose: 125 mls/hr Insulin Human Regular (Novolin R) 0 unit SQ UD PRN PRN Reason: HYPERGLYCEMIA Stop: 11/14/19 21:50 Last Admin: 10/18/19 12:48 Dose: 11 unit Morphine Sulfate (Morphine Sulfate 4 Mg Inj) 4 mg IV Q3H/PRN PRN PRN Reason: PAIN Stop: 10/20/19 21:50 Last Admin: 10/16/19 22:41 Dose: 4 mg Ondansetron HCl (Zofran 4 Mg/2 Ml Vial) 4 mg IV Q6H PRN PRN PRN Reason: NAUSEA/VOMITING Stop: 11/14/19 21:50 Pantoprazole Sodium (Protonix 40mg Tablet) 40 mg PO DAILY [facility] [place] Stop: 11/16/19 09:59 Last Admin: 10/18/19 09:52 Dose: 40 mg Potassium Chloride (Klor Con 10 Meq) 20 meq PO BID CRISTINO Stop: 11/15/19 21:59 Last Admin: 10/18/19 09:52 Dose: 20 meq Simvastatin (Zocor 10mg) 10 mg PO HS CRISTINO Stop: 11/15/19 21:59 Last Admin: 10/17/19 21:15 Dose: 10 mg Intake & Output 10/18/19 10/19/19 11:59 11:59 Intake Total 2461 Output Total 1175 Balance 1286 Orders 10/18/19 21:00 Vancomycin, Trough Urgent Therapuetic Drug Level Monitor [Trough Drug Levels] 1 IJ 1XONLY ONE Lab Tests 10/18/19 10/18/19 04:43 04:43 WBC 8.6 RBC 3.45 L Hgb 8.6 L Hct 28.4 L MCV 82.3 MCH 24.9 L MCHC 30.3 L RDW 22.4 H Plt Count 247 MPV 10.2 H Sodium 142 Potassium 5.3 H Chloride 109 H Carbon Dioxide 22 Anion Gap 16.0 H BUN 55 H Creatinine 1.95 H Estimated GFR 35.4 Glucose 118 H Calcium 8.6 Total Bilirubin 0.60 AST 24 ALT 27 Alkaline Phosphatase 121 Serum Total Protein 6.7 Albumin 3.1 L Slides for Path Review YES Microbiology 10/15/19 18:45 Clean Catch Midstream Urine Culture - Final Pseudomonas Aeruginosa Code(s): L03.116 - CELLULITIS OF LEFT LOWER LIMB; L03.115 - CELLULITIS OF RIGHT LOWER LIMB (2) Chronic anemia Current Visit: Yes Status: Acute Code(s): D64.9 - ANEMIA, UNSPECIFIED (3) Acute on chronic renal insufficiency Current Visit: No Status: Chronic Code(s): N28.9 - DISORDER OF KIDNEY AND URETER, UNSPECIFIED; N18.9 - CHRONIC KIDNEY DISEASE, UNSPECIFIED (4) Anemia associated with chronic renal failure Current Visit: No Status: Chronic Code(s): N18.9 - CHRONIC KIDNEY DISEASE, UNSPECIFIED; D63.1 - ANEMIA IN CHRONIC KIDNEY DISEASE (5) CAD (coronary artery disease) Current Visit: No Status: Chronic Code(s): I25.10 - ATHSCL HEART DISEASE OF [place] CORONARY ARTERY W/O ANG PCTRS (6) Essential hypertension Current Visit: No Status: Chronic Code(s): I10 - ESSENTIAL (PRIMARY) HYPERTENSION
[2019-10-18] MEDS: LASIX 20 MG PO SCH (16:04)
[2019-10-18] MEDS ORDERED: TROUGH DRUG LEVELS IJ ONE (21:00)
[2019-10-18] MEDS: Zocor 10MG PO SCH (21:20)
[2019-10-19] MEDS: Zosyn 3.375GM/100 Ml D5W 3.375 GM/100 ML IVPB IV SCH (06:46)
[2019-10-19] MEDS: LASIX 20 MG PO SCH ×2 (06:48→13:48)
[2019-10-19] MEDS: Sodium Chloride 0.9% 1000 ML 1,000 ML IV SCH (06:49)
[2019-10-19] MEDS: Pepcid 20 MG VIAL IV SCH (09:26)
[2019-10-19] MEDS: Klor Con 10 MEQ PO SCH (09:26)
[2019-10-19] MEDS: Apresoline 25 MG TABLET PO SCH ×2 (09:26→13:49)
[2019-10-19] MEDS: Protonix 40MG Tablet PO SCH (09:26)
[2019-10-19] MEDS: COREG 12.5 MG PO SCH (09:26)
[2019-10-19] MEDS: NovoLIN R SQ PRN (12:08)
[2019-10-19 12:18] VITALS: PULSE 85; O2SAT 94
[2019-10-19 12:21] VITALS: BP 156/73
--- NOTE | 2019-10-19 12:58 | PCM.DS ---
Discharge Summary Date of Admission: 10/15/19 21:27 Admitting Physician: BRIDGET LAU Primary Care Provider: BENEDICTO VELÁZQUEZ Allergies Allergies No Known Drug Allergies Allergy (Verified 10/15/19 22:49) Hospital Summary - Hospital Course Hospital Course: Chief Complaint Diagnosis Cellulitis of Bilateral Lower Extrimities Allergies Allergy/AdvReac Type Severity Reaction Status Date / Time No Known Drug Allergies Allergy Verified 10/15/19 22:49 Vital Signs (Last 24 hours) Temp Pulse Resp BP Pulse Ox 10/19/19 12:17 98 F 85 20 156/73 94 L 10/19/19 07:08 97.8 F 76 20 138/78 93 L 10/19/19 04:00 97.8 F 73 18 143/74 99 10/19/19 00:00 97.6 F 76 20 166/78 95 10/18/19 23:52 95 10/18/19 21:58 99 10/18/19 19:54 97.4 F 73 22 156/72 96 10/18/19 16:00 98.4 F 73 18 139/65 100 Home Medications Medication Instructions Recorded Confirmed Last Taken Type Acetaminophen 325 mg [Tylenol 650 mg PO Q4H PRN 10/15/19 10/15/19 10/15/19 History 325 mg] 650MG Cephalexin Mh 500 mg [Keflex 500 500 mg PO QID 10/15/19 10/15/19 10/15/19 History mg] Glucagon 1 mg [GlucaGen 1 MG] 1 mg IM UD PRN 10/15/19 10/15/19 Unknown History Current Medications Generic Name Dose Route Start Last Admin Trade Name Freq PRN Reason Stop Dose Admin Acetaminophen 650 mg 10/16/19 11:57 Tylenol 325 Mg PO 11/15/19 11:56 Q4H PRN PAIN Carvedilol 12.5 mg 10/16/19 22:00 10/19/19 09:26 Coreg 12.5 Mg PO 11/15/19 21:59 12.5 mg BID CRISTINO Administration Clonidine HCl 0.1 mg 10/18/19 10:00 Catapres-Tts 1 Patch TD 11/17/19 09:59 WEEKLY CRISTINO Docusate Sodium 100 mg 10/16/19 15:25 10/17/19 10:04 Colace 100 Mg PO 11/15/19 09:59 100 mg DAILY PRN Administration CONSTIPATION Famotidine 20 mg 10/15/19 22:00 10/19/19 09:26 Pepcid 20 Mg Vial IV 11/14/19 21:59 20 mg Q12HT CRISTINO Administration Furosemide 20 mg 10/18/19 15:15 10/19/19 06:48 Lasix 20 Mg PO 11/17/19 15:14 20 mg 0600,1300 CRISTINO Administration Hydralazine HCl 25 mg 10/15/19 22:00 10/19/19 09:26 Apresoline 25 Mg Tablet PO 11/14/19 21:59 25 mg QID CRISTINO Administration Hydromorphone HCl 0.5 mg 10/15/19 21:51 Dilaudid 2 Mg Injection IV 10/20/19 21:50 Q4H PRN PRN PAIN Piperacillin Sod/Tazobactam Sod 3.375 gm in 100 mls @ 200 mls/hr 10/16/19 14: 00 10/19/19 06:46 Zosyn 3.375gm/100 Ml D5w IV 11/15/19 00:00 200 mls/hr Q8HT CRISTINO Administration Sodium Chloride 1,000 mls @ 30 mls/hr 10/17/19 09:15 10/19/19 06:49 Sodium Chloride 0.9% 1000 Ml IV 11/16/19 09:14 125 mls/hr .Q24H CRISTINO Administration Insulin Human Regular 0 unit 10/15/19 21:51 10/19/19 12:08 Novolin R SQ 11/14/19 21:50 5 unit UD PRN Administration HYPERGLYCEMIA Morphine Sulfate 4 mg 10/15/19 21:51 10/16/19 22:41 Morphine Sulfate 4 Mg Inj IV 10/20/19 21:50 4 mg Q3H/PRN PRN Administration PAIN Ondansetron HCl 4 mg 10/15/19 21:51 Zofran 4 Mg/2 Ml Vial IV 11/14/19 21:50 Q6H PRN PRN NAUSEA/VOMITING Pantoprazole Sodium 40 mg 10/17/19 10:00 10/19/19 09:26 Protonix 40mg Tablet PO 11/16/19 09:59 40 mg DAILY CRISTINO Administration Potassium Chloride 20 meq 10/16/19 22:00 10/19/19 09:26 Klor Con 10 Meq PO 11/15/19 21:59 20 meq BID CRISTINO Administration Simvastatin 10 mg 10/16/19 22:00 10/18/19 21:20 Zocor 10mg PO 11/15/19 21:59 10 mg HS CRISTINO Administration Discontinued Medications Generic Name Dose Route Start Last Admin Trade Name Freq PRN Reason Stop Dose Admin Carvedilol 12.5 mg 10/15/19 22:00 10/16/19 09:56 Coreg 12.5 Mg PO 11/14/19 21:59 12.5 mg BID CRISTINO Administration Diphenhydramine HCl 12.5 mg 10/15/19 19:33 10/15/19 19:35 Benadryl 50 Mg/Ml IV 10/15/19 19:34 12.5 mg STAT ONE Administration Diphenhydramine HCl Confirm 10/15/19 19:34 Benadryl 50 Mg/Ml Administered 10/15/19 19:35 Dose 50 mg .ROUTE .STK-MED ONE Docusate Sodium 100 mg 10/16/19 10:00 10/16/19 09:57 Colace 100 Mg PO 11/15/19 09:59 100 mg DAILY CRISTINO Administration Famotidine 20 mg 10/15/19 20:40 10/15/19 20:50 Pepcid 20 Mg Vial IV 10/15/19 20:41 20 mg STAT ONE Administration Famotidine Confirm 10/15/19 20:46 Pepcid 20 Mg Vial Administered 10/15/19 20:47 Dose 20 mg IV .STK-MED ONE Furosemide 40 mg 10/16/19 10:00 10/16/19 09:56 Lasix 40 Mg PO 11/15/19 09:59 40 mg DAILY CRISTINO Administration Furosemide 20 mg 10/15/19 23:07 10/15/19 23:56 Lasix 20 Mg/2 Ml IV 11/14/19 23:06 20 mg BETWEEN UNITS PRN Administration edema Glimepiride 4 mg 10/16/19 08:00 10/16/19 08:45 Amaryl 4 Mg PO 11/15/19 07:59 4 mg BREAKFAST CRISTINO Administration Ceftriaxone Sodium/Dextrose 1 g in 50 mls @ 100 mls/hr 10/15/19 18:21 19:16 Rocephin 1 Gm-D5w 50 Ml Bag IV 10/15/19 18:50 Infused STAT STA Infusion Ceftriaxone Sodium/Dextrose Confirm 10/15/19 18:40 Rocephin 1 Gm-D5w 50 Ml Bag Administered 10/15/19 18:41 Dose 1 g in 50 mls @ ud IV .STK-MED ONE Vancomycin HCl 1 gm in 250 mls @ 167 mls/hr 10/15/19 19:06 10/15/19 19:14 Vancomycin 1gm/ Ns 250ml IV 10/15/19 20:35 167 mls/hr STAT ONE Administration Vancomycin HCl Confirm 10/15/19 19:13 Vancomycin 1gm/ Ns 250ml Administered 10/15/19 19:14 Dose 250 mls @ ud IV .STK-MED ONE Sodium Chloride Confirm 10/15/19 19:19 Sodium Chloride 0.9% 1000 Ml Administered 10/15/19 19:20 Dose 1,000 mls @ ud .ROUTE .STK-MED ONE Piperacillin Sod/Tazobactam Sod 3.375 gm in 100 mls @ 200 mls/hr 10/16/19 00: 00 10/16/19 06:26 Zosyn 3.375gm/100 Ml D5w IV 11/15/19 00:00 200 mls/hr Q6HT CRISTINO Administration Vancomycin HCl 1 gm/ Sodium 250 mls @ 167 mls/hr 10/15/19 21:51 10/17/19 21: 04 Chloride IV 11/14/19 21:50 167 mls/hr Q24H CRISTINO Administration Morphine Sulfate 4 mg 10/15/19 18:22 10/15/19 18:45 Morphine Sulfate 4 Mg Inj IV 10/15/19 18:23 4 mg STAT ONE Administration Morphine Sulfate Confirm 10/15/19 18:40 Morphine Sulfate 4 Mg Inj Administered 10/15/19 18:41 Dose 4 mg .ROUTE .STK-MED ONE Morphine Sulfate 4 mg 10/15/19 19:57 10/15/19 20:00 Morphine Sulfate 4 Mg Inj IV 10/15/19 19:58 4 mg STAT ONE Administration Morphine Sulfate Confirm 10/15/19 19:58 Morphine Sulfate 4 Mg Inj Administered 10/15/19 19:59 Dose 4 mg .ROUTE .STK-MED ONE Ondansetron HCl 4 mg 10/15/19 18:22 10/15/19 18:45 Zofran 4 Mg/2 Ml Vial IV 10/15/19 18:23 4 mg STAT ONE Administration Ondansetron HCl Confirm 10/15/19 18:40 Zofran 4 Mg/2 Ml Vial Administered 10/15/19 18:41 Dose 4 mg .ROUTE .STK-MED ONE Pantoprazole Sodium 40 mg 10/15/19 20:41 10/15/19 20:50 Protonix 40 Mg Iv IV 10/15/19 20:42 40 mg STAT ONE Administration Pantoprazole Sodium Confirm 10/15/19 20:46 Protonix 40 Mg Iv Administered 10/15/19 20:47 Dose 40 mg IV .STK-MED ONE Pantoprazole Sodium 40 mg 10/16/19 10:00 10/16/19 09:57 Protonix 40 Mg Iv IV 11/15/19 09:59 40 mg Q24H10 CRISTINO Administration Simvastatin 10 mg 10/16/19 22:00 Zocor 10mg PO 11/15/19 21:59 HS CRISTINO Intake & Output (Last 24 hours) 10/17/19 10/18/19 10/19/19 10/20/19 11:59 11:59 11:59 11:59 Intake Total 2424 2461 3733 Output Total 1405 1175 1600 100 Balance 1019 1286 2133 -100 Weight 99.6 kg Orders (Last 24 hours) Category Date Time Status Code Status Change Order ROUTINE Care 10/18/19 15:13 Active Miscellaneous Nursing Order ROUTINE Care 10/18/19 15:14 Active Furosemide 20 mg [Lasix 20 mg] Med 10/18/19 15:15 Active 20 mg PO 0600,1300 PT Eval & Treat ( Order) ROUTINE PT 10/18/19 15:06 Completed Patient Care Notes (Last 24 hours) 10/18/19 15:02 Physical Therapy Note by Waleska Yusuf PT'S OVERALL SKIN CONDITION HAS IMPROVED W/ REGULAR NURSING CARE DURING STAY I.E. CLEANSING AND COPIUS APPLICATION OF BARRIER OINTMENT. UPON D/C BACK TO SNF , PT. NEEDS CLEANSING OF BILATERAL LLS W/ SOAP AND WATER W/ WASHCLOTH FOLLOWED BY DRYING SKIN THOROUGHLY. APPLY COPIOUS BARRIER OINTMENT TO ENTIRE BILATERAL LOWER LEGS AND FEET. THIS SHOULD BE REPEATED AT LEAST 5X/WK. LES CAN BE DRESSSED W/ 4X4S AND FLUFFY GAUZE TO CONTROL DRAINAGE NEEDED. NSG CAN USE TUBIGRIP/STOCKINETTE PRN FOR COMPRESSION TOLERATED. WALESKA YUSUF, PT Initialized on 10/18/19 15:02 - END OF NOTE 10/18/19 13:00 (created 10/18/19 15:08) Case Management Note by Belem Carroll DR. ROUNDED AND EVALUATED, DISCUSSED TREATMENT AND PLAN OF CARE WITH PT/ . ATTEMPTED TO EDUCATE TO CHRONICITY OF SYMPTOMS AND CO-MORBIDITIES. ALL QUESTIONS ANSWERED BY DR. LAU. PLAN FOR PT TO RETURN TO [facility]IDENTIAL TOMORROW, WANTS ONE MORE DAY OF IV ABX AND PO LASIX. NO CHANGE IN DISCHARGE PLAN NOTED AT PRESENT TIME. Initialized on 10/18/19 15:08 - END OF NOTE - Vitals & Intake/Output Vital Signs: Vital Signs Temperature 98 F 10/19/19 12:17 Pulse Rate 85 10/19/19 12:17 Respiratory Rate 20 10/19/19 12:17 Blood Pressure 156/73 10/19/19 12:17 O2 Sat by Pulse Oximetry 94 L 10/19/19 12:17 Oxygen-Last Documented O2 Percentage 3 Liters = 32% Intake & Output: Intake & Output 10/17/19 10/18/19 10/19/19 10/20/19 11:59 11:59 11:59 11:59 Intake Total 2424 2461 3733 Output Total 1405 1175 1600 100 Balance 1019 1286 2133 -100 Weight 99.6 kg - Lab Result Diagrams: 10/18/19 04:43 10/18/19 04:43 Lab Results-Last 24 Hrs: Accuchecks Date 10/18/19 Date 10/18/19 Time 21:00 Time 16:30 Accucheck Value: 228 Accucheck Value: 126 Accucheck Value: 213 Accucheck Value: 292 Micro Results-Entire Visit: Microbiology 10/15/19 18:45 Urine Culture - Final Clean Catch Midstream Pseudomonas Aeruginosa 10/15/19 19:50 Blood Culture - Preliminary Blood NO GROWTH TO DATE 10/15/19 18:45 Blood Culture - Preliminary Blood NO GROWTH TO DATE Accuchecks Date 10/18/19 Date 10/18/19 Time 21:00 Time 16:30 Accucheck Value: 228 Accucheck Value: 126 Accucheck Value: 213 Accucheck Value: 292 - Procedures and Test Procedures and Tests throughout Hospitalization: Therapy Orders & Screens 10/16/19 02:09 OT Screen per Nursing Assess ONCE Comment: Protocol Order Physician Instructions: Greater than 3 points order OT Admission Screening Reason For Exam: Triggered on Admission Diagnosis: Cellulitis of Bilateral Lower Extrimities Open Wound/Cellutlitis/Pressure Ulcers: Yes Acute Fx/ORIF/Change in wt bearing status: No Severe MUSCULOSKELETAL pain: Yes ADL Dysfunction: Yes Acute CVA w/Hemiparesis/Hemiplegia: No: past hx Decreased Functional Mobility/Strength: Yes Sprain/Strain: No Acute Post-op Mobility Dysfunction: No Total Points: 14 10/16/19 05:01 Oxygen Nasal Cannula 4 lpm Comment: Diagnosis: Cellulitis of Bilateral Lower Extrimities 10/16/19 09:00 PT Screen per Nursing Assess ONCE Comment: Protocol Order Physician Instructions: Greater than 3 points order PT Admission Screenin Reason For Exam: Triggered on Admission Diagnosis: Cellulitis of Bilateral Lower Extrimities Open Wound/Cellutlitis/Pressure Ulcers: Yes Acute Fx/ORIF/Change in wt bearing status: No Severe MUSCULOSKELETAL pain: Yes ADL Dysfunction: Yes Acute CVA w/Hemiparesis/Hemiplegia: No: past hx Decreased Functional Mobility/Strength: Yes Sprain/Strain: No Acute Post-op Mobility Dysfunction: No Total Points: 14 RT Screen per Nursing Assess ONCE Comment: Protocol Order Physician Instructions: Greater than 3 points order RT Admission Screen Reason For Exam: Triggered on Admission Diagnosis: Cellulitis of Bilateral Lower Extrimities Diagnosis: Cellulitis of Bilateral Lower Extrimities Pneumonia: No Home O2: Yes Asthma: No CHF: Yes Home CPAP/BIPAP: No Home Nebs/MDI: No Total Points: 8 ST Screen per Nursing Assess once Comment: Protocol Order Physician Instructions: Greater than [address] Admission Screening Reason For Exam: Triggered on Admission Diagnosis: Cellulitis of Bilateral Lower Extrimities CVA/Dyshpagia/Aphasia: No Cognitive Deficits: No Dehydration/Nutrition Deficit: No Reflux: No Oral-Motor Difficulties: Yes Pneumonia: No Group Home Resident: Yes Total Points: 8 10/18/19 15:06 PT Eval & Treat (MD Order) ROUTINE Reason for Eval:: EVAL FOR DRESSING CHANGE RECOMMENDATIONS FOR RESIDENTIAL TREATMENT Diagnosis: Cellulitis of Bilateral Lower Extrimities Discharge Exam General Appearance: no apparent distress, alert Neurologic Exam: alert, oriented x 3, cooperative, normal mood/affect, nml cerebellar function, sensation nml, No motor deficits Eye Exam: PERRL, EOMI, eyes nml inspection Ears, Nose, Throat Exam: normal ENT inspection, pharynx normal, moist mucous membranes Neck Exam: normal inspection, non-tender, supple, full range of motion Respiratory Exam: normal breath sounds, diminished breath sounds, crackles/rales , rhonchi, wheezing, No respiratory distress Cardiovascular Exam: regular rate/rhythm, normal heart sounds, capillary refill 2-3 sec Gastrointestinal/Abdomen Exam: soft, No tenderness, No mass Male Genitalia Exam: deferred Rectal Exam: deferred Back Exam: normal inspection, normal range of motion, No CVA tenderness, No vertebral tenderness Extremity Exam: normal inspection, normal range of motion, joint swelling Skin Exam: normal color, warm, dry Wound Assessment: Skin/Wound Assessment Wound/Incision Assessment Start: 10/15/19 21: 34 Text: Status: Active Freq: Q6H Protocol: Document 10/19/19 07:57 HALEY (Rec: 10/19/19 08:13 HALEY [id number]) Wound/Incision Assessment Calf Wound Assessment Shift Assessment Wound Type CELLULITIS Wound Stage Non Pressure Wound Primary Dressing Gauze Pads Secondary Dressing Stockinette Comment DRESSING CLEAN DRY AND INTACT Posterior Buttock Wound Assessment Shift Assessment Wound Type Pressure Ulcer Wound Stage Stage II Drainage Amount None General Appearance Open to air Reddened Wound Bed Greatest Portion Red (Granulation) Surrounding Tissue Bright Red Purple Comment MULTIPLE OPEN AREAS NOTED, BARRIER CREAM APPLIED Wound Photo Comment: PICTURE ALREADY IN CHART Final Diagnosis/Problem List - Final Discharge Diagnosis/Problem (1) Bilateral cellulitis of lower leg Current Visit: Yes Status: Acute Assessment & Plan: improved Code(s): L03.116 - CELLULITIS OF LEFT LOWER LIMB; L03.115 - CELLULITIS OF RIGHT LOWER LIMB (2) Chronic anemia Current Visit: Yes Status: Chronic Code(s): D64.9 - ANEMIA, UNSPECIFIED (3) Acute on chronic renal insufficiency Current Visit: No Status: Acute Priority: High Code(s): N28.9 - DISORDER OF KIDNEY AND URETER, UNSPECIFIED; N18.9 - CHRONIC KIDNEY DISEASE, UNSPECIFIED (4) Anemia associated with chronic renal failure Current Visit: Yes Status: Chronic Priority: High Code(s): N18.9 - CHRONIC KIDNEY DISEASE, UNSPECIFIED; D63.1 - ANEMIA IN CHRONIC KIDNEY DISEASE (5) CAD (coronary artery disease) Current Visit: No Status: Chronic Priority: High Code(s): I25.10 - ATHSCL HEART DISEASE OF [place] CORONARY ARTERY W/O ANG PCTRS (6) Essential hypertension Current Visit: Yes Status: Chronic Code(s): I10 - ESSENTIAL (PRIMARY) HYPERTENSION - Discharge Discharge Date: 10/19/19 Disposition: [facility] TO [facility] Condition: Stable Prescriptions: Continue Carvedilol 12.5 mg [Coreg 12.5 mg] 12.5 mg PO BID PANTOPRAZOLE 40 mg Tablet [Protonix 40MG Tablet] 40 mg PO DAILY Atorvastatin Calcium [Lipitor] 10 mg PO HS Clonidine [Catapres-Tts 1] 0.1 mg TD WEEKLY Potassium Chloride 10 Meq Tab* [Klor Con 10 MEQ] 20 meq PO BID Glimepiride 4 mg [Amaryl 4 mg] 4 mg PO DAILY Docusate Sodium 100 mg [Colace 100 MG] 100 mg PO DAILY PRN PRN PRN Reason: Constipation HydrALAzine HCL 25 MG TAB [Apresoline 25 MG TABLET] 25 mg PO QID Furosemide [Lasix] 40 mg PO DAILY #30 tablet Cephalexin Mh 500 mg [Keflex 500 mg] 500 mg PO QID Acetaminophen 325 mg [Tylenol 325 mg] 650 mg PO Q4H PRN PRN Reason: Pain Glucagon 1 mg [GlucaGen 1 MG] 1 mg IM UD PRN PRN Reason: Hypoglycemia Follow up with: BENEDICTO [id number] [Primary Care Provider] - 1 Week
== END 2019-10-19 14:30 | DRG 603 ==
LOC: ED 17:48 → MED SURG 21:27
PROVIDERS: ADMIT General Practice; ATTEND General Practice
DX: L03.116 Cellulitis of left lower limb (principal); L03.115 Cellulitis of right lower limb; I48.91 Unspecified atrial fibrillation; L89.322 Pressure ulcer of left buttock, stage 2; L89.312 Pressure ulcer of right buttock, stage 2; D63.1 Anemia in chronic kidney disease; E11.9 Type 2 diabetes mellitus without complications; I13.10 Hypertensive heart and chronic kidney disease without heart failure, with stage 1 through stage 4 chronic kidney disease, or unspecified chronic kidney disease; N18.9 Chronic kidney disease, unspecified; I25.10 Atherosclerotic heart disease of native coronary artery without angina pectoris; Z79.899 Other long term (current) drug therapy; Z86.718 Personal history of other venous thrombosis and embolism
CPT/HCPCS: 29581; 36000; 36415; 36430; 71045; 80053; 81001; 82947; 82962; 83605; 83690; 83880; 84484; 85025; 85027; 85610; 85730; 86850; 86900; 86901; 86922; 87040; 87077; 87086; 87186; 93005; 93041; 93970; 94760; 94762; 96365; 96367; 96374; 96375; 96376; 97161; 99285; P9016; A6457; J0696; J1200; J1940; J2270; J2405; J2543; J3370; A9270-GY

== ENCOUNTER 2019-10-22 16:35 | Observation (INO) | payer MEDICARE ==
[2019-10-22] MEDS ORDERED: Lasix 40 MG/4 ML IV PRN (18:45)
[2019-10-22] MEDS ORDERED: TYLENOL 325 MG PO PRN (19:00)
[2019-10-22] MEDS ORDERED: Colace 100 MG PO PRN (19:04)
[2019-10-22] MEDS ORDERED: NovoLOG Insulin SQ PRN (19:11)
[2019-10-22] MEDS: Apresoline 25 MG TABLET PO SCH (20:40)
[2019-10-22] MEDS: Klor Con 10 MEQ PO SCH (20:40)
[2019-10-22] MEDS: KEFLEX 500 MG PO SCH (20:40)
[2019-10-22] MEDS: COREG 12.5 MG PO SCH (20:41)
[2019-10-22] MEDS ORDERED: MORPHINE SULFATE 10 MG/ML IV PRN (21:02)
[2019-10-22 21:27] LABS: ABO TYPING A; Antibody Screen NEGATIVE (NEGATIVE); RH TYPING POSITIVE
[2019-10-22] MEDS ORDERED: Sodium Chloride 0.9% 500 ML 500 ML IV SCH (21:45)
[2019-10-22] MEDS ORDERED: Zocor 10MG PO SCH (22:00)
[2019-10-22 22:24] LABS: CROSS MATCH (PRBC) COMPATIBLE (COMPATIBLE)
[2019-10-23] MEDS ORDERED: ATARAX 25 MG PO PRN (01:56)
[2019-10-23 07:31] VITALS: BP 110/63; PULSE 70; O2SAT 100
--- NOTE | 2019-10-23 07:32 | PCM.SSS ---
History of Present Illness - Chief Complaint Chief Complaint: Patient is at CT found to have hgb 6.2 History of Present Illness: is a 79 year old male PMHx of CAD, Chronic HTN kidney disease, DM. CV stroke, started having weakness so CBC done and hgb is 6.6 so patient was admitted as observation for blood transfusion. - Review of Systems Constitutional: Fatigue, Lethargy, Weakness, No Fever, No Chills Eyes: No Symptoms Ears, Nose, & Throat: No Symptoms Respiratory: Orthopnea, No Cough, No Short Of Breath Cardiac: Edema, Orthopnea, PND, No Chest Pain, No Syncope Abdominal/Gastrointestinal: No Abdominal Pain, No Nausea, No Vomiting, No Diarrhea, No Hematochezia Genitourinary Symptoms: No Dysuria Musculoskeletal: No Back Pain, No Neck Pain Skin: Cellulitis, Decubiti, No Rash Neurological: No Dizziness, No Focal Weakness, No Sensory Changes Psychological: No Symptoms Endocrine: No Symptoms Hematologic/Lymphatic: No Symptoms Immunological/Allergic: No Symptoms Medications & Allergies Home Medications: Home Medication List Carvedilol 12.5 mg [Coreg 12.5 mg] 12.5 mg PO BID 05/01/15 [History Confirmed 10/22/19] Atorvastatin Calcium [Lipitor] 10 mg PO HS 04/24/17 [History Confirmed 10/22/19] PANTOPRAZOLE 40 mg Tablet [Protonix 40MG Tablet] 40 mg PO DAILY 04/24/17 [ History Confirmed 10/22/19] Clonidine [Catapres-Tts 1] 0.1 mg TD WEEKLY 01/02/19 [History Confirmed 10/22/19 ] Potassium Chloride 10 Meq Tab* [Klor Con 10 MEQ] 20 meq PO BID 01/02/19 [ History Confirmed 10/22/19] Glimepiride 4 mg [Amaryl 4 mg] 4 mg PO DAILY 03/04/19 [History Confirmed 10/22/19] Docusate Sodium 100 mg [Colace 100 MG] 100 mg PO DAILY PRN PRN 09/19/19 [ History Confirmed 10/22/19] HydrALAzine HCL 25 MG TAB [Apresoline 25 MG TABLET] 25 mg PO QID 09/19/19 [History Confirmed 10/22/19] Acetaminophen 325 mg [Tylenol 325 mg] 650 mg PO Q4H PRN 10/15/19 [History Confirmed 10/22/19] Glucagon 1 mg [GlucaGen 1 MG] 1 mg IM UD PRN 10/15/19 [History Confirmed 10/22/19] Cephalexin Mh 500 mg [Keflex 500 mg] 500 mg PO QID 10 Days #40 capsule 10/19 [Rx Confirmed 10/22/19] Furosemide 20 mg [Lasix 20 mg] 20 mg PO 0600,1300 #60 tablet 10/19/19 [Rx Confirmed 10/22/19] Insulin Aspart [NovoLOG Insulin] 0 unit SQ UD #1 vial 10/19/19 [Rx Confirmed 10/22/19] Metformin HCl Xr 500 mg [Glucophage XR 500 MG] 500 mg PO DAILY #30 tab 02/02 [Rx Confirmed 10/22/19] Morphine 10 mg Inj [Morphine Sulfate 10 mg/ml] 5 mg PO Q4H PRN 10/22/19 [ History Confirmed 10/22/19] Hydroxyzine HCl 25 mg [Atarax 25 mg] 25 mg PO Q6H PRN PRN 10/23/19 [ History Confirmed 10/23/19] Allergies/Adverse Reactions: Allergies Allergy/AdvReac Type Severity Reaction Status Date / Time No Known Drug Allergies Allergy Verified 10/15/19 22:49 - Past Medical History Past Medical History: Yes Neurological History: Paralysis, Peripheral Neuropathy, Stroke, TIA ENT History: Cataracts, Other Cardiac History: Angina, Arrhythmia, Congestive Heart Failure, Coronary Artery Disease, High Cholesterol, Hypertension, Myocardial Infarction ([place]), Peripheral Vascular Disease CARDIAC HISTORY: Hypertension Respiratory History: COPD Endocrine Medical History: Diabetes Type II Musculoskelatal History: Osteoarthritis GI Medical History: GERD, GI Bleed, Hemorrhoids, Other History: Renal Disease Pyscho-Social History: No Pertinent History Male Reproductive Disorders: Prostate Problems Comment: cellulitis. kadeem cataracts. no polyps , but a cluster of veins, enlarge prostate.shingles. dermatitis. Myositis. right sided weakness from stroke. aquired hemolitic anemia. chronic vascular disorder of the kidneys. hx afib. hx pressure ulcer to left buttock - Past Surgical History Past Surgical History: Yes Neuro Surgical History: No Pertinent History Cardiac History: Other Respiratory Surgery: No Pertinent History GI Surgical History: No Pertinent History Genitourinary Surgical Hx: No Pertinent History Musculskeletal Surgical Hx: Orthopedic Surgery Male Surgical History: No Pertinent History Other Surgical History: kadeem knee surgery. colonoscopy. 3 aortic stents - Social History Smoking Status: Former smoker How long have you smoked: 40 Exposure to second hand smoke: No Alcohol: None Drug Use: none - Physical Exam Vital Signs: Vital Signs - 24 hr Temp Pulse Resp BP BP Pulse Ox 10/23/19 04:00 98.2 F 75 22 130/66 99 10/22/19 23:26 97.7 F 75 16 115/66 98 10/22/19 22:50 99 10/22/19 19:54 97.1 F 83 20 129/64 98 10/22/19 18:39 98 F 83 20 129/64 98 Oxygen-Last 24 hours O2 Percentage 3 Liters = 32% Oxygen Flowrate (L/min)-RT 3 Oxygen Flowrate (L/min)-RT 3 Oxygen Flowrate (L/min)-RT 3 General Appearance: mild distress, lethargy Neurologic Exam: alert, motor deficits, sensory deficit, motor weakness, abnormal gait Eye Exam: PERRL/EOMI, eyes nml inspection Ears, Nose, Throat Exam: normal ENT inspection, TMs normal, pharynx normal, moist mucous membranes Neck Exam: normal inspection, non-tender, supple, full range of motion Respiratory Exam: diminished breath sounds, crackles/rales, rhonchi, wheezing, No respiratory distress Cardiovascular Exam: normal peripheral pulses, murmur, bradycardia, irregular, capillary refill >3 sec Gastrointestinal/Abdomen Exam: soft, normal bowel sounds, No tenderness, No mass Rectal Exam: deferred Back Exam: normal inspection, normal range of motion, No CVA tenderness, No vertebral tenderness Extremity Exam: normal inspection, normal range of motion, pelvis stable Skin Exam: normal color, warm, dry, No rash Wound Assessment: Skin/Wound Assessment Wound/Incision Assessment Start: 10/22/19 20: 41 Text: Status: Active Freq: Q6H Protocol: Document 10/23/19 02:00 MG (Rec: 10/23/19 02:09 MG [id number]) Wound/Incision Assessment Bilateral Lower Legs Wound Assessment Admission Wound Type Cellulitis Wound Stage Non Pressure Wound Dressing Status Dry & Intact Drainage Amount None Comment Pt's legs wrapped, dressings CDI. Upper legs dry/scaley. Barrier ointment applied. No change noted Posterior Buttock Wound Assessment Admission Wound Type Pressure Ulcer Wound Stage Stage II Dressing Status Dry & Intact Drainage Amount None Comment Several small stage II areas on kadeem buttocks, mepilex in place. No change noted. Lymphatic Exam: No adenopathy Results - Labs Lab/Micro Results: Lab Results-Last 24 Hours 10/22/19 10/22/19 Range/Units 18:44 19:14 ABO Group A Rh Factor POSITIVE Antibody Screen NEGATIVE (NEGATIVE) Crossmatch COMPATIBLE COMPATIBLE (COMPATIBLE) - Other Procedures and Tests Respiratory Therapy 10/22/19 22:50 Oxygen Nasal Cannula 3 lpm Assessment/Plan (1) Anemia Current Visit: Yes Status: Chronic Qualifiers: Anemia type: due to chronic kidney disease Chronic kidney disease stage: stage 4 (severe) Qualified Code(s): N18.4 - Chronic kidney disease, stage 4 ( severe); D63.1 - Anemia in chronic kidney disease Code(s): D64.9 - ANEMIA, UNSPECIFIED (2) Acute on chronic renal insufficiency Current Visit: No Status: Acute Code(s): N28.9 - DISORDER OF KIDNEY AND URETER, UNSPECIFIED; N18.9 - CHRONIC KIDNEY DISEASE, UNSPECIFIED (3) Bilateral cellulitis of lower leg Current Visit: No Status: Chronic Assessment & Plan: chronic venous stasis edema Code(s): L03.116 - CELLULITIS OF LEFT LOWER LIMB; L03.115 - CELLULITIS OF RIGHT LOWER LIMB (4) Diabetes mellitus Current Visit: No Status: Acute Qualifiers: Diabetes mellitus type: type 2 Diabetes mellitus senior care insulin use: without senior care use Diabetes mellitus complication status: with kidney complications Diabetes mellitus complication detail: with chronic kidney disease Chronic kidney disease stage: stage 4 (severe) Qualified Code(s): E11.22 - Type 2 diabetes mellitus with diabetic chronic kidney disease; N18.4 - Chronic kidney disease, stage 4 (severe) Code(s): E11.9 - TYPE 2 DIABETES MELLITUS WITHOUT COMPLICATIONS (5) Anemia associated with chronic renal failure Current Visit: No Status: Chronic Code(s): N18.9 - CHRONIC KIDNEY DISEASE, UNSPECIFIED; D63.1 - ANEMIA IN CHRONIC KIDNEY DISEASE (6) Atrial fibrillation Current Visit: Yes Status: Chronic Qualifiers: Atrial fibrillation type: paroxysmal Qualified Code(s): I48.0 - Paroxysmal atrial fibrillation Code(s): I48.91 - UNSPECIFIED ATRIAL FIBRILLATION (7) CAD (coronary artery disease) Current Visit: Yes Status: Chronic Qualifiers: Coronary Disease-Associated Artery/Lesion type: [place] artery [place] vs. transplanted heart: [place] heart Associated angina: without angina Qualified Code(s): I25.10 - Atherosclerotic heart disease of [place] coronary artery without angina pectoris Code(s): I25.10 - ATHSCL HEART DISEASE OF [place] CORONARY ARTERY W/O ANG PCTRS (8) Essential hypertension Current Visit: Yes Status: Chronic Code(s): I10 - ESSENTIAL (PRIMARY) HYPERTENSION (9) Acute on chronic blood loss anemia Current Visit: Yes Status: Resolved Code(s): D62 - ACUTE POSTHEMORRHAGIC ANEMIA (10) Chronic ischemic colitis, enteritis, or enterocolitis Current Visit: Yes Status: Chronic Code(s): K55.1 - CHRONIC VASCULAR DISORDERS OF INTESTINE (11) Generalized weakness Current Visit: Yes Status: Chronic Code(s): R53.1 - WEAKNESS Hospital Summary - Hospital Course Hospital Course: Chief Complaint Diagnosis Patient is at CT found to have hgb 6.2 Allergies Allergy/AdvReac Type Severity Reaction Status Date / Time No Known Drug Allergies Allergy Verified 10/15/19 22:49 Vital Signs (Last 24 hours) Temp Pulse Resp BP BP Pulse Ox 10/23/19 07:31 98.3 F 70 20 110/63 100 10/23/19 04:00 98.2 F 75 22 130/66 99 10/22/19 23:26 97.7 F 75 16 115/66 98 10/22/19 22:50 99 10/22/19 19:54 97.1 F 83 20 129/64 98 10/22/19 18:39 98 F 83 20 129/64 98 Home Medications Medication Instructions Recorded Confirmed Last Taken Type Morphine 10 mg Inj [Morphine 5 mg PO Q4H PRN 10/22/19 10/22/19 Unknown History Sulfate 10 mg/ml] Hydroxyzine HCl 25 mg [Atarax 25 mg PO Q6H PRN PRN 10/23/19 10/23/19 Unknown History 25 mg] Current Medications Generic Name Dose Route Start Last Admin Trade Name Freq PRN Reason Stop Dose Admin Acetaminophen 650 mg 10/22/19 19:00 Tylenol 325 Mg PO 11/21/19 18:59 Q4H PRN PRN PAIN Carvedilol 12.5 mg 10/22/19 22:00 10/22/19 20:41 Coreg 12.5 Mg PO 11/21/19 21:59 12.5 mg BID CRISTINO Administration Cephalexin HCl 500 mg 10/22/19 22:00 10/22/19 20:40 Keflex 500 Mg PO 11/21/19 21:59 500 mg QID CRISTINO Administration Docusate Sodium 100 mg 10/22/19 19:04 Colace 100 Mg PO 11/21/19 19:03 DAILY PRN PRN CONSTIPATION Hydralazine HCl 25 mg 10/22/19 22:00 10/22/19 20:40 Apresoline 25 Mg Tablet PO 11/21/19 21:59 25 mg QID CRISTINO Administration Hydroxyzine HCl 25 mg 10/23/19 01:56 10/23/19 02:02 Atarax 25 Mg PO 11/22/19 01:55 25 mg Q6H PRN PRN Administration ITCHING Sodium Chloride 500 mls @ 50 mls/hr 10/22/19 21:45 10/22/19 21:47 Sodium Chloride 0.9% 500 Ml IV 11/21/19 21:44 50 mls/hr .Q10H CRISTINO Administration Insulin Aspart 0 unit 10/22/19 19:11 Novolog Insulin SQ 11/21/19 19:10 UD PRN HYPERGLYCEMIA Morphine Sulfate 5 mg 10/22/19 21:02 Morphine Sulfate 10 Mg/Ml IV 10/27/19 21:01 Q4H PRN PRN PAIN Potassium Chloride 20 meq 10/22/19 22:00 10/22/19 20:40 Klor Con 10 Meq PO 11/21/19 21:59 20 meq BID CRISTINO Administration Simvastatin 10 mg 10/22/19 22:00 10/22/19 20:41 Zocor 10mg PO 01/05/20 21:59 10 mg HS CRISTINO Administration Discontinued Medications Generic Name Dose Route Start Last Admin Trade Name Sara PRN Reason Stop Dose Admin Furosemide 40 mg 10/22/19 18:45 10/23/19 02:31 Lasix 40 Mg/4 Ml IV 40 mg BETWEEN UNITS PRN Administration blood administration Intake & Output (Last 24 hours) 10/20/19 10/21/19 10/22/19 10/23/19 11:59 11:59 11:59 11:59 Intake Total 1487 Output Total 1025 Balance 462 Weight 104.5 kg Laboratory Results (Last 24 hours) 10/22/19 10/22/19 19:14 18:44 ABO Group A Rh Factor POSITIVE Antibody Screen NEGATIVE Crossmatch COMPATIBLE COMPATIBLE Orders (Last 24 hours) Category Date Time Status ACCUCHECK [Accucheck] ACHS Care 10/22/19 23:[address] in Observation ROUTINE Care 10/22/19 18:42 Active Telemetry q6h Care 10/23/19 00:23 Active Infection Control Consult Cons 10/22/19 20:41 Active Sample Stitcher/Discharge Plan Cons 10/22/19 20:41 Active Nutritional Admission Screen Diet 10/22/19 20:41 Active Regular Diet Diet 10/22/19 Dinner Active BLOOD COMPONENT REQUEST Urgent Lab 10/22/19 18:44 Completed HEMOGLOBIN AND HEMATOCRIT Urgent Lab 10/23/19 07:45 Ordered TYPE AND SCREEN Urgent Lab 10/22/19 18:44 Completed Acetaminophen 325 mg [Tylenol 325 mg] Med 10/22/19 19:00 Active 650 mg PO Q4H PRN PRN Carvedilol 12.5 mg [Coreg 12.5 mg] Med 10/22/19 22:00 Active 12.5 mg PO BID Cephalexin Mh 500 mg [Keflex 500 mg] Med 10/22/19 22:00 Active 500 mg PO QID Docusate Sodium 100 mg [Colace 100 MG] Med 10/22/19 19:04 Active 100 mg PO DAILY PRN PRN Furosemide 40 mg/4 ml [Lasix 40 MG/4 ML] Med 10/22/19 18:45 Discontinued 40 mg IV BETWEEN UNITS PRN HydrALAzine HCL 25 MG TAB [Apresoline 25 MG TABLET Med 10/22/19 22:00 Active *] 25 mg PO QID Hydroxyzine HCl 25 mg [Atarax 25 mg] Med 10/23/19 01:56 Active 25 mg PO Q6H PRN PRN Insulin Aspart [NovoLOG Insulin] Med 10/22/19 19:11 Active See Dose Instructions SQ UD PRN Morphine 10 mg Inj [Morphine Sulfate 10 mg/ml] Med 10/22/19 21:02 Active 5 mg IV Q4H PRN PRN NaCl 0.9% 500 ml [Sodium Chloride 0.9% 500 ML] 500 ml Med 10/22/19 21:45 Active IV 50 mls/hr Potassium Chloride 10 Meq Tab* [Klor Con 10 MEQ] Med 10/22/19 22:00 Active 20 meq PO BID Simvastatin 10 mg [Zocor 10MG] Med 10/22/19 22:00 Active 10 mg PO HS OT Screen per Nursing Assess OT 10/22/19 20:41 Active PT Screen per Nursing Assess PT 10/22/19 20:41 Active Oxygen Nasal Cannula 3 lpm RT 10/22/19 22:50 Active Pulse Oximetry .continuos RT 10/23/19 00:23 Active RT Screen per Nursing Assess RT 10/22/19 20:41 Completed Patient Care Notes (Last 24 hours) 10/23/19 02:04 Nursing Note by Bony [place] Pt c/o itching but states that he was itching before the blood began infusing. Hydroxyzine given. See emar. Initialized on 10/23/19 02:04 - END OF NOTE - Vitals & Intake/Output Vital Signs: Vital Signs Temperature 98.2 F 10/23/19 04:00 Pulse Rate 75 10/23/19 04:00 Respiratory Rate 22 10/23/19 04:00 Blood Pressure 130/66 10/23/19 04:00 O2 Sat by Pulse Oximetry 99 10/23/19 04:00 Oxygen-Last Documented O2 Percentage 3 Liters = 32% Intake & Output: Intake & Output 10/20/19 10/21/19 10/22/19 10/23/19 11:59 11:59 11:59 11:59 Intake Total 1487 Output Total 1025 Balance 462 Weight 104.5 kg - Lab Lab Results-Last 24 Hrs: Lab Results-Last 24 Hours 10/22/19 10/22/19 Range/Units 18:44 19:14 ABO Group A Rh Factor POSITIVE Antibody Screen NEGATIVE (NEGATIVE) Crossmatch COMPATIBLE COMPATIBLE (COMPATIBLE) - Procedures and Test Procedures and Tests throughout Hospitalization: Therapy Orders & Screens 10/22/19 20:41 OT Screen per Nursing Assess Comment: Protocol Order Physician Instructions: Greater than 3 points order OT Admission Screening Reason For Exam: Triggered on Admission Diagnosis: Anemia Open Wound/Cellutlitis/Pressure Ulcers: Yes Acute Fx/ORIF/Change in wt bearing status: No Severe MUSCULOSKELETAL pain: No ADL Dysfunction: Yes Acute CVA w/Hemiparesis/Hemiplegia: No Decreased Functional Mobility/Strength: Yes Sprain/Strain: No Acute Post-op Mobility Dysfunction: No Total Points: 9 PT Screen per Nursing Assess Comment: Protocol Order Physician Instructions: Greater than 3 points order PT Admission Screenin Reason For Exam: Triggered on Admission Diagnosis: Anemia Open Wound/Cellutlitis/Pressure Ulcers: Yes Acute Fx/ORIF/Change in wt bearing status: No Severe MUSCULOSKELETAL pain: No ADL Dysfunction: Yes Acute CVA w/Hemiparesis/Hemiplegia: No Decreased Functional Mobility/Strength: Yes Sprain/Strain: No Acute Post-op Mobility Dysfunction: No Total Points: 9 RT Screen per Nursing Assess Comment: Protocol Order Physician Instructions: Greater than 3 points order RT Admission Screen Reason For Exam: Triggered on Admission Diagnosis: Anemia Diagnosis: Anemia Pneumonia: No Home O2: Yes Asthma: No CHF: Yes Home CPAP/BIPAP: No Home Nebs/MDI: No Total Points: 8 10/22/19 22:50 Oxygen Nasal Cannula 3 lpm Comment: Diagnosis: Anemia - Discharge Discharge Date: 10/23/19 Disposition: DC TO [facility] Condition: Stable Prescriptions: No Action Carvedilol 12.5 mg [Coreg 12.5 mg] 12.5 mg PO BID PANTOPRAZOLE 40 mg Tablet [Protonix 40MG Tablet] 40 mg PO DAILY Atorvastatin Calcium [Lipitor] 10 mg PO HS Clonidine [Catapres-Tts 1] 0.1 mg TD WEEKLY Potassium Chloride 10 Meq Tab* [Klor Con 10 MEQ] 20 meq PO BID Glimepiride 4 mg [Amaryl 4 mg] 4 mg PO DAILY Docusate Sodium 100 mg [Colace 100 MG] 100 mg PO DAILY PRN PRN PRN Reason: Constipation HydrALAzine HCL 25 MG TAB [Apresoline 25 MG TABLET] 25 mg PO QID Acetaminophen 325 mg [Tylenol 325 mg] 650 mg PO Q4H PRN PRN Reason: Pain Glucagon 1 mg [GlucaGen 1 MG] 1 mg IM UD PRN PRN Reason: Hypoglycemia Metformin HCl Xr 500 mg [Glucophage XR 500 MG] 500 mg PO DAILY #30 tab Furosemide 20 mg [Lasix 20 mg] 20 mg PO 0600,1300 #60 tablet Cephalexin Mh 500 mg [Keflex 500 mg] 500 mg PO QID 10 Days #40 capsule Insulin Aspart [NovoLOG Insulin] 0 unit SQ UD #1 vial Morphine 10 mg Inj [Morphine Sulfate 10 mg/ml] 5 mg PO Q4H PRN PRN Reason: Pain Hydroxyzine HCl 25 mg [Atarax 25 mg] 25 mg PO Q6H PRN PRN PRN Reason: Itching Follow up with: BRIDGET LAU MD [Primary Care Provider] - 1 Week
[2019-10-23 07:57] LABS: Hematocrit 25.8 % (42-50); Hemoglobin 8.1 gm/dl (12.5-18.0)
[2019-10-23] MEDS ORDERED: AMARYL 4 MG PO SCH (08:00)
[2019-10-23] MEDS ORDERED: GlucaGen 1 MG IM PRN (08:14)
[2019-10-23] MEDS ORDERED: LASIX 20 MG PO SCH (08:30)
[2019-10-23] MEDS: KEFLEX 500 MG PO SCH (08:50)
[2019-10-23] MEDS: Klor Con 10 MEQ PO SCH (08:50)
[2019-10-23] MEDS: Apresoline 25 MG TABLET PO SCH (08:51)
[2019-10-23] MEDS: COREG 12.5 MG PO SCH (08:51)
[2019-10-23] MEDS ORDERED: Glucophage XR 500 MG PO SCH (10:00)
[2019-10-23] MEDS ORDERED: Protonix 40MG Tablet PO SCH (10:00)
[2019-10-25] MEDS ORDERED: Catapres-TTS 1 PATCH TD SCH (10:00)
== END 2019-10-23 11:35 ==
LOC: PREOBSVTOIN 17:54 → EDSTATUS 18:20 → MED SURG 18:33
PROVIDERS: ADMIT General Practice; ATTEND General Practice
DX: I13.10 Hypertensive heart and chronic kidney disease without heart failure, with stage 1 through stage 4 chronic kidney disease, or unspecified chronic kidney disease (principal); N18.4 Chronic kidney disease, stage 4 (severe); D63.1 Anemia in chronic kidney disease; E11.22 Type 2 diabetes mellitus with diabetic chronic kidney disease; L03.116 Cellulitis of left lower limb; L03.115 Cellulitis of right lower limb; I48.91 Unspecified atrial fibrillation; L89.322 Pressure ulcer of left buttock, stage 2; L89.312 Pressure ulcer of right buttock, stage 2; K55.1 Chronic vascular disorders of intestine; J44.9 Chronic obstructive pulmonary disease, unspecified; R53.1 Weakness; Z79.899 Other long term (current) drug therapy; Z86.73 Personal history of transient ischemic attack (TIA), and cerebral infarction without residual deficits
CPT/HCPCS: 36415; 36430; 80053; 82962; 85014; 85018; 85025; 86850; 86900; 86901; 86922; 94760; 94762; G0378; P9016; P9603; J1940; A9270-GY